=== PATIENT | female | born 1940 | race African-American/Black ===

== ENCOUNTER 2020-06-21 19:36 | Emergency (ER) | payer OTHER, MEDICAID ==
[~2020-06-21] VITALS: Ht 160 cm; Wt 81.6 kg
[2020-06-21 23:12] VITALS: BP 130/40
== END 2020-06-21 23:56 | disposition home or self-care (01) ==
LOC: ER 19:37
DX: M17.0 Bilateral primary osteoarthritis of knee (principal); E11.9 Type 2 diabetes mellitus without complications; I10 Essential (primary) hypertension; W01.0XXA Fall on same level from slipping, tripping and stumbling without subsequent striking against object, initial encounter; Y93.89 Activity, other specified; Y92.89 Other specified places as the place of occurrence of the external cause; Y99.8 Other external cause status
CPT/HCPCS: 73030; 73560

== ENCOUNTER 2021-09-04 16:06 | Emergency (ER) | payer OTHER, MEDICAID ==
[~2021-09-04] VITALS: Ht 157.5 cm; Wt 72.6 kg
[2021-09-04 16:26] VITALS: BP 153/78
[2021-09-04 17:44] LABS: Basophils # (auto) 0 10 ^3/uL (0-0.2); Basophils % (auto) 1.2 % (0.0-2.0); Eosinophils # (auto) 0 10 ^3/uL (0-0.8); Eosinophils % (auto) 0.1 % (0.0-7.0); Hematocrit 34.6 % (36.0-46.0); Hemoglobin 11.7 g/dL (12.2-16.2); Lymphocytes # (auto) 0.5 10 ^3/uL (0.4-5.4); Lymphocytes % (auto) 12.5 % (10.0-50.0); Mean Corpuscular Hemoglobin 28.4 pg (28.0-32.0); Mean Corpuscular Hgb Conc. 33.9 g/dL (32.0-36.0); Mean Corpuscular Volume 83.9 fL (80.0-100.0); Monocytes # (auto) 0.2 10 ^3/uL (0-1.3); Neutrophils # (auto) 3.1 10 ^3/uL (1.6-8.6); Neutrophils % (auto) 80.2 % (37.0-80.0); Nucleated Red Blood Cells % 0.1 %; Red Blood Cells 4.12 10^6/uL (4.0-5.20); Red Cell Distribution Width 14.4 % (11.8-14.3); White Blood Cell 3.9 10^3/uL (4.4-10.8)
[2021-09-04 18:13] LABS: Albumin 2.6 g/dL (3.4-5.0); Calcium 8.1 mg/dL (8.5-10.1); Potassium 4.1 mmol/L (3.5-5.1)
[2021-09-04 18:24] LABS: BUN/Creatinine Ratio 14.8; Bilirubin, Total 0.5 mg/dL (0.2-1.0); Total Protein 6.1 g/dL (6.4-8.2)
== END 2021-09-04 18:42 | disposition left against medical advice (07) ==
LOC: ER 16:06
DX: R53.1 Weakness (principal); Z53.21 Procedure and treatment not carried out due to patient leaving prior to being seen by health care provider
CPT/HCPCS: 36415; 80053; 84484; 85025

== ENCOUNTER 2021-09-08 14:17 | Inpatient (IN) | payer OTHER, MEDICAID ==
[~2021-09-08] VITALS: Ht 157.5 cm; Wt 88.6 kg
[2021-09-08 17:40] LABS: Basophils # (auto) 0 10 ^3/uL (0-0.2); Basophils % (auto) 0.5 % (0.0-2.0); Eosinophils # (auto) 0 10 ^3/uL (0-0.8); Eosinophils % (auto) 0.4 % (0.0-7.0); Hematocrit 34.3 % (36.0-46.0); Hemoglobin 11.2 g/dL (12.2-16.2); Lymphocytes # (auto) 0.9 10 ^3/uL (0.4-5.4); Lymphocytes % (auto) 24.9 % (10.0-50.0); Mean Corpuscular Hemoglobin 27.6 pg (28.0-32.0); Mean Corpuscular Hgb Conc. 32.7 g/dL (32.0-36.0); Mean Corpuscular Volume 84.5 fL (80.0-100.0); Monocytes # (auto) 0.5 10 ^3/uL (0-1.3); Monocytes % (auto) 14.4 % (0.0-12.0); Neutrophils # (auto) 2.1 10 ^3/uL (1.6-8.6); Neutrophils % (auto) 59.8 % (37.0-80.0); Nucleated Red Blood Cells % 0.1 %; Red Blood Cells 4.05 10^6/uL (4.0-5.20); Red Cell Distribution Width 14.8 % (11.8-14.3); White Blood Cell 3.5 10^3/uL (4.4-10.8)
[2021-09-08] MEDS ORDERED: LABETALOL HCL 5 MG/ML 4ML SYRINGE IV ONE (17:54)
[2021-09-08 17:55] LABS: INR 1.02 (0.9-1.15); Partial Thromboplastin Time 28.3 sec (23.6-33.0)
[2021-09-08] MEDS: LABETALOL HCL 5 MG/ML 4ML SYRINGE IV ONE ×2 (18:00→18:07)
[2021-09-08 18:15] LABS: Albumin 2.4 g/dL (3.4-5.0); Magnesium 3.1 mg/dL (1.6-2.6); Potassium 3.7 mmol/L (3.5-5.1)
[2021-09-08 18:23] LABS: BUN/Creatinine Ratio 15.4; Bilirubin, Total 0.5 mg/dL (0.2-1.0); Total Protein 6.1 g/dL (6.4-8.2)
[2021-09-08] MEDS ORDERED: ENOXAPARIN SOD 100 MG/1 ML SYRINGE SC ONE (21:30)
[2021-09-08] MEDS ORDERED: ASPirin 325 MG TAB PO ONE (21:30)
[2021-09-08] MEDS ORDERED: CLOPIDOGREL BISULFATE 75 MG TAB PO ONE (21:30)
[2021-09-08] MEDS ORDERED: HEPARIN DRIP/D5W 100UNITS/ML 250 ML IV SCH (21:45)
[2021-09-08] MEDS ORDERED: HEPARIN SODIUM (PORCINE) 5000 UNITS/ML 1ML VIAL IV ONE (21:45)
[2021-09-08] MEDS ORDERED: LACTATED RINGER'S 1,000 ML IV ONE (22:00)
[2021-09-08] MEDS ORDERED: DOCUSATE SOD 100 MG CAP PO PRN (22:45)
[2021-09-08] MEDS ORDERED: ONDANSETRON HCL 4 MG/2 ML VIAL IV PRN (22:45)
[2021-09-08] MEDS ORDERED: DEXTROSE (50%) 50ML SYRG IV PRN (22:45)
[2021-09-08] MEDS ORDERED: AZITHROMYCIN 500MG/ 250ML 250 ML IV ONE (22:45)
[2021-09-09] MEDS ORDERED: NITROGLYCERIN 0.4 MG SL TAB SL PRN
[2021-09-09] MEDS ORDERED: MORPHINE SULFATE INJECTION 2 MG/ML SYRG IV PRN
[2021-09-09] MEDS ORDERED: LABETALOL HCL 5 MG/ML 4ML SYRINGE IV ONE ×2 (02:15→04:00)
[2021-09-09 02:56] LABS: Urine Amorphous Crystal FEW /hpf (None Seen); Urine Bacteria MANY /hpf (None Seen); Urine Blood 1+ /uL (Negative); Urine Hyaline Cast MANY /lpf (0 - 2); Urine Specific Gravity 1.028 (1.001-1.035); Urine WBC 70 /hpf (0 - 5)
[2021-09-09] MEDS: HEPARIN SODIUM (PORCINE) 5000 UNITS/ML 1ML VIAL SC SCH ×3 (06:00→22:00)
[2021-09-09] MEDS: InsuLIN REG 1unit/0.01ml Soln (100units/ml) SC SCH ×4 (07:00→22:00)
[2021-09-09] MEDS: ACCU-CHEK COMFORT CURVE STRIP VI SCH ×4 (07:00→22:37)
[2021-09-09] MEDS: FAMOTIDINE (10MG/ML) 2ML VL IV SCH (07:44)
[2021-09-09] MEDS ORDERED: CARB25TA75 PO (08:32)
[2021-09-09] MEDS ORDERED: SENN1TAB14 PO (08:32)
[2021-09-09] MEDS ORDERED: FAMO-12 PO (08:32)
[2021-09-09] MEDS ORDERED: DOCU-94 PO (08:32)
[2021-09-09] MEDS ORDERED: ENAL2.5T7 PO (08:32)
[2021-09-09] MEDS ORDERED: CEPH500C PO (08:32)
[2021-09-09] MEDS ORDERED: ASPI1TAB20 PO (08:32)
[2021-09-09] MEDS ORDERED: SIMV-13 PO (08:32)
[2021-09-09] MEDS ORDERED: CITA-77 PO (08:32)
[2021-09-09] MEDS ORDERED: HYDR-4902 PO (08:32)
[2021-09-09] MEDS ORDERED: HYDR25TA5 PO (08:32)
[2021-09-09] MEDS ORDERED: MONT-8 PO (08:32)
[2021-09-09] MEDS ORDERED: GABA100C9 PO (08:32)
[2021-09-09 08:45] LABS: Hematocrit 27.9 % (36.0-46.0); Hemoglobin 9.4 g/dL (12.2-16.2); Mean Corpuscular Hgb Conc. 33.6 g/dL (32.0-36.0); Mean Corpuscular Volume 83.2 fL (80.0-100.0); Red Blood Cells 3.35 10^6/uL (4.0-5.20); Red Cell Distribution Width 14.6 % (11.8-14.3); White Blood Cell 4.7 10^3/uL (4.4-10.8)
[2021-09-09 08:53] LABS: Basophils % (manual) 0 (0.0-2.0); Blast Cells 0; Myelocytes % 0; Promyelocytes % 0; Reactive Lymphocytes 0
[2021-09-09 09:00] VITALS: BP 148/81
[2021-09-09 09:00] LABS: Calcium 7.6 mg/dL (8.5-10.1); Potassium 3.7 mmol/L (3.5-5.1)
[2021-09-09 09:06] LABS: BUN/Creatinine Ratio 15.8; Bilirubin, Total 0.4 mg/dL (0.2-1.0); Total Protein 5.2 g/dL (6.4-8.2)
[2021-09-09] MEDS ORDERED: QUET25TA37 PO (09:19)
[2021-09-09] MEDS: MULTIPLE VITAMIN TAB PO SCH (10:00)
[2021-09-09] MEDS: ASPirin 81 mg TAB PO SCH (10:00)
[2021-09-09] MEDS: ZINC SULFATE 220mg CAP or TAB PO SCH (10:00)
[2021-09-09] MEDS: ASCORBIC ACID 500 MG TAB PO SCH ×2 (10:06→22:37)
[2021-09-09 10:08] LABS: Protein, Urine 822.7 mg/dL (0.0-11.9)
[2021-09-09 10:56] LABS: Band Neutrophils % (manual) 6; Eosinophils % (manual) 1 (0-7); Lymphocytes % (manual) 11 (10.0-50.0); Metamyelocytes % 1; Monocytes % (manual) 14 (0-12)
[2021-09-09 12:00] VITALS: BP 164/84
[2021-09-09] MEDS: SODIUM CHLORIDE 0.9% 1,000 ML IV SCH (13:40)
[2021-09-09] MEDS: HYDROcodone-ACET 5/325MG TAB PO PRN (13:41)
[2021-09-09 16:50] VITALS: BP 159/75
[2021-09-09 22:00] VITALS: BP 189/93
[2021-09-09] MEDS: AZITHROMYCIN 500MG/ 250ML 250 ML IV SCH (22:36)
[2021-09-09] MEDS: cefTRIAXone 1GM/50ML D5W 50 ML IV SCH (22:40)
[2021-09-10 05:30] VITALS: BP 185/99
[2021-09-10] MEDS ORDERED: HEPARIN SODIUM (PORCINE) 5000 UNITS/ML 1ML VIAL ONE (05:33)
[2021-09-10] MEDS ORDERED: hydrALAZINE HCL 20 MG/ML VL ONE (05:39)
[2021-09-10] MEDS: hydrALAZINE HCL 20 MG/ML VL IV PRN (05:42)
[2021-09-10] MEDS: HEPARIN SODIUM (PORCINE) 5000 UNITS/ML 1ML VIAL SC SCH ×3 (05:50→21:46)
[2021-09-10] MEDS: ACCU-CHEK COMFORT CURVE STRIP VI SCH ×4 (05:54→21:49)
[2021-09-10] MEDS: InsuLIN REG 1unit/0.01ml Soln (100units/ml) SC SCH ×4 (05:54→21:57)
[2021-09-10 06:39] VITALS: BP 147/79
[2021-09-10 06:42] LABS: Basophils # (auto) 0 10 ^3/uL (0-0.2); Basophils % (auto) 0.6 % (0.0-2.0); Eosinophils # (auto) 0 10 ^3/uL (0-0.8); Eosinophils % (auto) 0.5 % (0.0-7.0); Hematocrit 28.8 % (36.0-46.0); Hemoglobin 9.7 g/dL (12.2-16.2); Lymphocytes % (auto) 17.1 % (10.0-50.0); Mean Corpuscular Hemoglobin 28.4 pg (28.0-32.0); Mean Corpuscular Hgb Conc. 33.9 g/dL (32.0-36.0); Mean Corpuscular Volume 83.9 fL (80.0-100.0); Monocytes % (auto) 16.7 % (0.0-12.0); Neutrophils # (auto) 3.7 10 ^3/uL (1.6-8.6); Neutrophils % (auto) 65.1 % (37.0-80.0); Red Blood Cells 3.43 10^6/uL (4.0-5.20); Red Cell Distribution Width 14.6 % (11.8-14.3); White Blood Cell 5.8 10^3/uL (4.4-10.8)
[2021-09-10 09:00] VITALS: BP 136/81
[2021-09-10] MEDS: SODIUM CHLORIDE 0.9% 1,000 ML IV SCH (09:15)
[2021-09-10] MEDS: cefTRIAXone 1GM/50ML D5W 50 ML IV SCH (09:15)
[2021-09-10 09:38] LABS: BUN/Creatinine Ratio 15.3; Calcium 7.8 mg/dL (8.5-10.1)
[2021-09-10] MEDS: ASPirin 81 mg TAB PO SCH (10:20)
[2021-09-10] MEDS: ZINC SULFATE 220mg CAP or TAB PO SCH (10:20)
[2021-09-10] MEDS: FAMOTIDINE (10MG/ML) 2ML VL IV SCH (10:20)
[2021-09-10] MEDS: ASCORBIC ACID 500 MG TAB PO SCH ×2 (10:25→21:48)
[2021-09-10] MEDS: MULTIPLE VITAMIN TAB PO SCH (10:27)
[2021-09-10 11:28] LABS: Folate (Folic Acid) 5.92 ng/mL (5.38-24)
[2021-09-10 14:33] VITALS: BP 158/79
[2021-09-10 17:30] VITALS: BP 182/81
[2021-09-10] MEDS: HYDROcodone-ACET 5/325MG TAB PO PRN (18:17)
[2021-09-10 21:00] VITALS: BP 183/75
[2021-09-10] MEDS: AZITHROMYCIN 500MG/ 250ML 250 ML IV SCH (21:47)
[2021-09-10] MEDS: hydrALAZINE HCL 25 MG TAB PO SCH (21:48)
[2021-09-11] MEDS: SODIUM CHLORIDE 0.9% 1,000 ML IV SCH (05:15)
[2021-09-11] MEDS: HYDROcodone-ACET 5/325MG TAB PO PRN (05:16)
[2021-09-11] MEDS: hydrALAZINE HCL 25 MG TAB PO SCH ×3 (05:37→22:13)
[2021-09-11] MEDS: HEPARIN SODIUM (PORCINE) 5000 UNITS/ML 1ML VIAL SC SCH ×3 (05:38→22:14)
[2021-09-11] MEDS: InsuLIN REG 1unit/0.01ml Soln (100units/ml) SC SCH ×4 (05:58→22:00)
[2021-09-11] MEDS: ACCU-CHEK COMFORT CURVE STRIP VI SCH ×4 (05:58→22:14)
[2021-09-11 06:25] LABS: Calcium 8.1 mg/dL (8.5-10.1); Potassium 4.2 mmol/L (3.5-5.1)
[2021-09-11 06:27] LABS: BUN/Creatinine Ratio 15.6
[2021-09-11] MEDS: cefTRIAXone 1GM/50ML D5W 50 ML IV SCH (08:49)
[2021-09-11] MEDS: ASPirin 81 mg TAB PO SCH (09:17)
[2021-09-11] MEDS: ASCORBIC ACID 500 MG TAB PO SCH ×2 (09:18→22:13)
[2021-09-11] MEDS: FAMOTIDINE (10MG/ML) 2ML VL IV SCH (09:18)
[2021-09-11] MEDS: MULTIPLE VITAMIN TAB PO SCH (09:18)
[2021-09-11] MEDS: ZINC SULFATE 220mg CAP or TAB PO SCH (09:18)
[2021-09-11 09:38] VITALS: BP 162/77
[2021-09-11 14:48] VITALS: BP 158/88
[2021-09-11 16:34] VITALS: BP 152/78
[2021-09-11] MEDS: ACETAMINOPHEN 325 MG TAB PO PRN (18:27)
[2021-09-11 22:00] VITALS: BP 157/74
[2021-09-11] MEDS: AZITHROMYCIN 500MG/ 250ML 250 ML IV SCH (22:12)
[2021-09-12] MEDS: SODIUM CHLORIDE 0.9% 1,000 ML IV SCH ×2 (01:38→21:47)
[2021-09-12] MEDS: hydrALAZINE HCL 25 MG TAB PO SCH ×4 (01:38→21:48)
[2021-09-12 05:31] VITALS: BP 173/106
[2021-09-12] MEDS: hydrALAZINE HCL 20 MG/ML VL IV PRN ×2 (05:39→13:53)
[2021-09-12] MEDS: InsuLIN REG 1unit/0.01ml Soln (100units/ml) SC SCH ×4 (06:16→21:18)
[2021-09-12] MEDS: HEPARIN SODIUM (PORCINE) 5000 UNITS/ML 1ML VIAL SC SCH ×3 (06:22→21:49)
[2021-09-12] MEDS: ACCU-CHEK COMFORT CURVE STRIP VI SCH ×4 (06:39→21:17)
[2021-09-12] MEDS: ASCORBIC ACID 500 MG TAB PO SCH ×2 (10:07→21:48)
[2021-09-12] MEDS: ZINC SULFATE 220mg CAP or TAB PO SCH (10:07)
[2021-09-12] MEDS: FAMOTIDINE (10MG/ML) 2ML VL IV SCH (10:08)
[2021-09-12] MEDS: ASPirin 81 mg TAB PO SCH (10:08)
[2021-09-12] MEDS: MULTIPLE VITAMIN TAB PO SCH (10:08)
[2021-09-12] MEDS: HYDROcodone-ACET 5/325MG TAB PO PRN (10:08)
[2021-09-12] MEDS: cefTRIAXone 1GM/50ML D5W 50 ML IV SCH (10:08)
[2021-09-12] MEDS ORDERED: ALBUMIN 25% 50 ML IV ONE (10:30)
[2021-09-12 10:31] VITALS: BP 169/75
[2021-09-12 12:13] LABS: Potassium 4.2 mmol/L (3.5-5.1)
[2021-09-12 12:16] LABS: BUN/Creatinine Ratio 18.3; Calcium 8.5 mg/dL (8.5-10.1)
[2021-09-12 13:00] VITALS: BP 216/89
[2021-09-12] MEDS: amLODIPine BESYLATE 5 MG TAB PO SCH (14:28)
[2021-09-12] MEDS: AZITHROMYCIN 500MG/ 250ML 250 ML IV SCH (21:48)
[2021-09-12 22:00] VITALS: BP 149/114
[2021-09-13 05:00] VITALS: BP 157/84
[2021-09-13] MEDS: HEPARIN SODIUM (PORCINE) 5000 UNITS/ML 1ML VIAL SC SCH ×3 (05:18→22:40)
[2021-09-13] MEDS: hydrALAZINE HCL 25 MG TAB PO SCH ×3 (05:28→22:41)
[2021-09-13] MEDS: InsuLIN REG 1unit/0.01ml Soln (100units/ml) SC SCH ×4 (06:10→21:58)
[2021-09-13] MEDS: ACCU-CHEK COMFORT CURVE STRIP VI SCH ×4 (06:10→21:33)
[2021-09-13] MEDS: cefTRIAXone 1GM/50ML D5W 50 ML IV SCH (08:34)
[2021-09-13 09:00] VITALS: BP 150/82
[2021-09-13] MEDS: MULTIPLE VITAMIN TAB PO SCH (09:18)
[2021-09-13] MEDS: ASPirin 81 mg TAB PO SCH (09:19)
[2021-09-13] MEDS: ZINC SULFATE 220mg CAP or TAB PO SCH (09:19)
[2021-09-13] MEDS: ACETAMINOPHEN 325 MG TAB PO PRN (09:20)
[2021-09-13] MEDS: ASCORBIC ACID 500 MG TAB PO SCH ×2 (09:20→22:00)
[2021-09-13] MEDS: amLODIPine BESYLATE 5 MG TAB PO SCH (09:20)
[2021-09-13] MEDS: FAMOTIDINE (10MG/ML) 2ML VL IV SCH (09:20)
[2021-09-13 09:45] LABS: BUN/Creatinine Ratio 21.2; Calcium 8.4 mg/dL (8.5-10.1)
[2021-09-13 13:00] VITALS: BP 154/84
[2021-09-13] MEDS: SODIUM CHLORIDE 0.9% 1,000 ML IV SCH (16:51)
[2021-09-13 17:00] VITALS: BP 144/70
[2021-09-13 20:00] VITALS: BP 155/74
[2021-09-13] MEDS: AZITHROMYCIN 500MG/ 250ML 250 ML IV SCH (22:39)
[2021-09-13] MEDS: hydrALAZINE HCL 20 MG/ML VL IV PRN (22:41)
[2021-09-14 05:00] VITALS: BP 152/72
[2021-09-14 05:51] LABS: Hemoglobin 9.1 g/dL (12.2-16.2)
[2021-09-14 05:55] LABS: Hematocrit 26.1 % (36.0-46.0); Mean Corpuscular Volume 85.7 fL (80.0-100.0); Red Blood Cells 3.05 10^6/uL (4.0-5.20); Red Cell Distribution Width 14.4 % (11.8-14.3)
[2021-09-14] MEDS: hydrALAZINE HCL 25 MG TAB PO SCH ×3 (06:00→21:58)
[2021-09-14 06:11] LABS: BUN/Creatinine Ratio 29.1; Calcium 8.2 mg/dL (8.5-10.1); Magnesium 2.2 mg/dL (1.6-2.6)
[2021-09-14 06:33] LABS: Basophils % (manual) 0 (0.0-2.0); Blast Cells 0; Eosinophils % (manual) 0 (0-7); Metamyelocytes % 0; Myelocytes % 0; Promyelocytes % 0; Reactive Lymphocytes 0
[2021-09-14] MEDS: hydrALAZINE HCL 20 MG/ML VL IV PRN (06:39)
[2021-09-14] MEDS: HEPARIN SODIUM (PORCINE) 5000 UNITS/ML 1ML VIAL SC SCH ×3 (06:48→21:37)
[2021-09-14] MEDS: ACCU-CHEK COMFORT CURVE STRIP VI SCH ×4 (06:49→21:28)
[2021-09-14] MEDS: InsuLIN REG 1unit/0.01ml Soln (100units/ml) SC SCH ×4 (06:50→21:38)
[2021-09-14 07:40] LABS: Band Neutrophils % (manual) 1; Lymphocytes % (manual) 21 (10.0-50.0); Monocytes % (manual) 16 (0-12)
[2021-09-14 08:54] VITALS: BP 142/72
[2021-09-14] MEDS: cefTRIAXone 1GM/50ML D5W 50 ML IV SCH (10:01)
[2021-09-14] MEDS: MULTIPLE VITAMIN TAB PO SCH (10:11)
[2021-09-14] MEDS: ASPirin 81 mg TAB PO SCH (10:11)
[2021-09-14] MEDS: FAMOTIDINE (10MG/ML) 2ML VL IV SCH (10:11)
[2021-09-14] MEDS: amLODIPine BESYLATE 5 MG TAB PO SCH (10:12)
[2021-09-14] MEDS: ACETAMINOPHEN 325 MG TAB PO PRN (10:12)
[2021-09-14] MEDS: ASCORBIC ACID 500 MG TAB PO SCH ×2 (10:12→21:38)
[2021-09-14] MEDS: ZINC SULFATE 220mg CAP or TAB PO SCH (10:12)
[2021-09-14] MEDS: SODIUM CHLORIDE 0.9% 1,000 ML IV SCH ×2 (13:15→15:12)
[2021-09-14 17:24] VITALS: BP 123/78
[2021-09-14] MEDS: AZITHROMYCIN 500MG/ 250ML 250 ML IV SCH (21:38)
[2021-09-14 22:00] VITALS: BP 136/64
[2021-09-15] MEDS: hydrALAZINE HCL 25 MG TAB PO SCH ×3 (05:45→22:00)
[2021-09-15] MEDS: HEPARIN SODIUM (PORCINE) 5000 UNITS/ML 1ML VIAL SC SCH ×3 (05:48→21:12)
[2021-09-15] MEDS: InsuLIN REG 1unit/0.01ml Soln (100units/ml) SC SCH ×4 (06:08→21:14)
[2021-09-15] MEDS: ACCU-CHEK COMFORT CURVE STRIP VI SCH ×4 (06:08→21:14)
[2021-09-15 09:00] VITALS: BP 178/88
[2021-09-15] MEDS: cefTRIAXone 1GM/50ML D5W 50 ML IV SCH (09:00)
[2021-09-15] MEDS: ASCORBIC ACID 500 MG TAB PO SCH ×2 (09:23→22:00)
[2021-09-15] MEDS: FAMOTIDINE (10MG/ML) 2ML VL IV SCH (09:23)
[2021-09-15] MEDS: MULTIPLE VITAMIN TAB PO SCH (09:23)
[2021-09-15] MEDS: amLODIPine BESYLATE 5 MG TAB PO SCH (09:23)
[2021-09-15] MEDS: ASPirin 81 mg TAB PO SCH (09:23)
[2021-09-15] MEDS: ZINC SULFATE 220mg CAP or TAB PO SCH (09:23)
[2021-09-15] MEDS: hydrALAZINE HCL 20 MG/ML VL IV PRN ×2 (09:24→22:37)
[2021-09-15] MEDS: CEFEPIME 1 GM in SODIUM CHL 0.9% 50 ML IV SCH ×2 (10:00→18:00)
[2021-09-15 13:00] VITALS: BP 145/65
[2021-09-15] MEDS: HYDROcodone-ACET 5/325MG TAB PO PRN (14:10)
[2021-09-15 17:00] VITALS: BP 140/48
[2021-09-15] MEDS: ACETAMINOPHEN 325 MG TAB PO PRN (18:45)
[2021-09-15 22:00] VITALS: BP 164/74
[2021-09-16] MEDS: CEFEPIME 1 GM in SODIUM CHL 0.9% 50 ML IV SCH ×3 (02:03→18:00)
[2021-09-16 05:00] VITALS: BP 172/77
[2021-09-16] MEDS: SODIUM CHLORIDE 0.9% 1,000 ML IV SCH (05:15)
[2021-09-16] MEDS: hydrALAZINE HCL 20 MG/ML VL IV PRN (05:50)
[2021-09-16] MEDS: ACCU-CHEK COMFORT CURVE STRIP VI SCH ×4 (05:51→22:57)
[2021-09-16] MEDS: InsuLIN REG 1unit/0.01ml Soln (100units/ml) SC SCH ×4 (05:52→22:00)
[2021-09-16] MEDS: HEPARIN SODIUM (PORCINE) 5000 UNITS/ML 1ML VIAL SC SCH ×3 (05:53→22:41)
[2021-09-16] MEDS: hydrALAZINE HCL 25 MG TAB PO SCH ×3 (05:54→22:34)
[2021-09-16 06:39] VITALS: BP 147/57
[2021-09-16 09:00] VITALS: BP 166/67
[2021-09-16] MEDS: amLODIPine BESYLATE 5 MG TAB PO SCH (10:00)
[2021-09-16] MEDS: ZINC SULFATE 220mg CAP or TAB PO SCH (10:00)
[2021-09-16] MEDS: FAMOTIDINE (10MG/ML) 2ML VL IV SCH (10:00)
[2021-09-16] MEDS: ASCORBIC ACID 500 MG TAB PO SCH ×2 (10:00→22:35)
[2021-09-16] MEDS: ASPirin 81 mg TAB PO SCH (10:00)
[2021-09-16] MEDS: MULTIPLE VITAMIN TAB PO SCH (10:00)
[2021-09-16 13:00] VITALS: BP 163/85
[2021-09-16 17:00] VITALS: BP 107/69
[2021-09-16 22:00] VITALS: BP 150/61
[2021-09-17] MEDS: SODIUM CHLORIDE 0.9% 1,000 ML IV SCH ×2 (02:11→23:47)
[2021-09-17] MEDS: CEFEPIME 1 GM in SODIUM CHL 0.9% 50 ML IV SCH ×3 (02:12→18:00)
[2021-09-17 05:00] VITALS: BP 145/61
[2021-09-17] MEDS: hydrALAZINE HCL 25 MG TAB PO SCH ×3 (06:36→22:12)
[2021-09-17] MEDS: HEPARIN SODIUM (PORCINE) 5000 UNITS/ML 1ML VIAL SC SCH ×3 (06:37→22:01)
[2021-09-17] MEDS: InsuLIN REG 1unit/0.01ml Soln (100units/ml) SC SCH ×4 (06:38→22:00)
[2021-09-17] MEDS: ACCU-CHEK COMFORT CURVE STRIP VI SCH ×4 (06:38→22:12)
[2021-09-17 08:05] LABS: BUN/Creatinine Ratio 34.3; Calcium 8.6 mg/dL (8.5-10.1); Eosinophils # (auto) 0 10 ^3/uL (0-0.8); Eosinophils % (auto) 0.1 % (0.0-7.0); Hemoglobin 8.9 g/dL (12.2-16.2); Monocytes # (auto) 1.2 10 ^3/uL (0-1.3); Nucleated Red Blood Cells % 0.1 %; Potassium 4.2 mmol/L (3.5-5.1)
[2021-09-17 08:07] LABS: Basophils # (auto) 0 10 ^3/uL (0-0.2); Basophils % (auto) 0.6 % (0.0-2.0); Hematocrit 26.6 % (36.0-46.0); Lymphocytes # (auto) 1.4 10 ^3/uL (0.4-5.4); Lymphocytes % (auto) 15.8 % (10.0-50.0); Mean Corpuscular Hemoglobin 28.6 pg (28.0-32.0); Mean Corpuscular Hgb Conc. 33.4 g/dL (32.0-36.0); Mean Corpuscular Volume 85.5 fL (80.0-100.0); Monocytes % (auto) 14.1 % (0.0-12.0); Neutrophils % (auto) 69.4 % (37.0-80.0); Red Blood Cells 3.11 10^6/uL (4.0-5.20); Red Cell Distribution Width 14.9 % (11.8-14.3); White Blood Cell 8.6 10^3/uL (4.4-10.8)
[2021-09-17 09:00] VITALS: BP 155/75
[2021-09-17] MEDS: ASPirin 81 mg TAB PO SCH (10:44)
[2021-09-17] MEDS: MULTIPLE VITAMIN TAB PO SCH (10:44)
[2021-09-17] MEDS: ZINC SULFATE 220mg CAP or TAB PO SCH (10:44)
[2021-09-17] MEDS: amLODIPine BESYLATE 5 MG TAB PO SCH (10:45)
[2021-09-17] MEDS: FAMOTIDINE (10MG/ML) 2ML VL IV SCH (10:46)
[2021-09-17] MEDS: HYDROcodone-ACET 5/325MG TAB PO PRN ×2 (10:55→22:13)
[2021-09-17] MEDS: ASCORBIC ACID 500 MG TAB PO SCH ×2 (10:56→22:11)
[2021-09-17 13:00] VITALS: BP 127/78
[2021-09-17] MEDS ORDERED: HEPARIN SODIUM (PORCINE) 5000 UNITS/ML 1ML VIAL ONE ×2 (15:27)
[2021-09-17 16:00] VITALS: BP 137/62
[2021-09-17 22:10] VITALS: BP 132/74
[2021-09-18] MEDS: CEFEPIME 1 GM in SODIUM CHL 0.9% 50 ML IV SCH ×3 (01:37→18:05)
[2021-09-18] MEDS: hydrALAZINE HCL 20 MG/ML VL IV PRN (04:02)
[2021-09-18 04:30] VITALS: BP 165/80
[2021-09-18] MEDS: HEPARIN SODIUM (PORCINE) 5000 UNITS/ML 1ML VIAL SC SCH ×3 (05:30→21:01)
[2021-09-18] MEDS: hydrALAZINE HCL 25 MG TAB PO SCH ×3 (05:40→21:06)
[2021-09-18 06:11] VITALS: BP 153/87
[2021-09-18] MEDS: InsuLIN REG 1unit/0.01ml Soln (100units/ml) SC SCH ×4 (06:16→21:07)
[2021-09-18] MEDS: ACCU-CHEK COMFORT CURVE STRIP VI SCH ×4 (06:16→21:07)
[2021-09-18 09:00] VITALS: BP 147/67
[2021-09-18] MEDS: ASPirin 81 mg TAB PO SCH (11:09)
[2021-09-18] MEDS: MULTIPLE VITAMIN TAB PO SCH (11:09)
[2021-09-18] MEDS: ZINC SULFATE 220mg CAP or TAB PO SCH (11:09)
[2021-09-18] MEDS: ASCORBIC ACID 500 MG TAB PO SCH ×2 (11:09→21:07)
[2021-09-18] MEDS: FAMOTIDINE (10MG/ML) 2ML VL IV SCH (11:09)
[2021-09-18] MEDS: amLODIPine BESYLATE 5 MG TAB PO SCH (11:10)
[2021-09-18 13:00] VITALS: BP 141/97
[2021-09-18 17:00] VITALS: BP 133/77
[2021-09-18] MEDS: SODIUM CHLORIDE 0.9% 1,000 ML IV SCH (17:30)
[2021-09-18] MEDS: HYDROcodone-ACET 5/325MG TAB PO PRN (21:08)
[2021-09-18 22:00] VITALS: BP 128/58
[2021-09-19] MEDS: CEFEPIME 1 GM in SODIUM CHL 0.9% 50 ML IV SCH ×3 (01:35→18:06)
[2021-09-19 05:00] VITALS: BP 133/84
[2021-09-19] MEDS: HEPARIN SODIUM (PORCINE) 5000 UNITS/ML 1ML VIAL SC SCH ×2 (05:27→14:00)
[2021-09-19] MEDS: hydrALAZINE HCL 25 MG TAB PO SCH ×2 (05:30→14:00)
[2021-09-19] MEDS: InsuLIN REG 1unit/0.01ml Soln (100units/ml) SC SCH ×3 (05:31→17:00)
[2021-09-19] MEDS: ACCU-CHEK COMFORT CURVE STRIP VI SCH ×3 (05:31→17:21)
[2021-09-19 08:46] VITALS: BP 150/88
[2021-09-19] MEDS: ASPirin 81 mg TAB PO SCH (10:08)
[2021-09-19] MEDS: ASCORBIC ACID 500 MG TAB PO SCH (10:08)
[2021-09-19] MEDS: MULTIPLE VITAMIN TAB PO SCH (10:08)
[2021-09-19] MEDS: FAMOTIDINE (10MG/ML) 2ML VL IV SCH (10:09)
[2021-09-19] MEDS: ZINC SULFATE 220mg CAP or TAB PO SCH (10:09)
[2021-09-19] MEDS: amLODIPine BESYLATE 5 MG TAB PO SCH (10:09)
[2021-09-19] MEDS: HYDROcodone-ACET 5/325MG TAB PO PRN (10:10)
[2021-09-19] MEDS: SODIUM CHLORIDE 0.9% 1,000 ML IV SCH (13:15)
[2021-09-19 16:53] VITALS: BP 123/75
== END 2021-09-19 21:34 | DRG 193 ==
LOC: EDUNIT# 14:17 → ER 14:17 → EDBD 14:17 → TELE 23:50 → TELE-CENTR 09-09 06:04
PROVIDERS: ADMIT Nurse Practitioner Family; ATTEND Internal Medicine
DX: J18.9 Pneumonia, unspecified organism (principal); N17.0 Acute kidney failure with tubular necrosis; J96.00 Acute respiratory failure, unspecified whether with hypoxia or hypercapnia; G93.41 Metabolic encephalopathy; N39.0 Urinary tract infection, site not specified; N18.4 Chronic kidney disease, stage 4 (severe); E88.09 Other disorders of plasma-protein metabolism, not elsewhere classified; D63.1 Anemia in chronic kidney disease; F29 Unspecified psychosis not due to a substance or known physiological condition; Z20.822 Contact with and (suspected) exposure to COVID-19; G20 Parkinson's disease; F02.80 Dementia in other diseases classified elsewhere, unspecified severity, without behavioral disturbance, psychotic disturbance, mood disturbance, and anxiety; G30.9 Alzheimer's disease, unspecified; B96.5 Pseudomonas (aeruginosa) (mallei) (pseudomallei) as the cause of diseases classified elsewhere; E11.22 Type 2 diabetes mellitus with diabetic chronic kidney disease; F17.200 Nicotine dependence, unspecified, uncomplicated; G89.29 Other chronic pain; I12.9 Hypertensive chronic kidney disease with stage 1 through stage 4 chronic kidney disease, or unspecified chronic kidney disease; K21.9 Gastro-esophageal reflux disease without esophagitis; M19.90 Unspecified osteoarthritis, unspecified site; R26.9 Unspecified abnormalities of gait and mobility; M54.50 Low back pain, unspecified; Z79.4 Long term (current) use of insulin; Z79.82 Long term (current) use of aspirin; Z79.899 Other long term (current) drug therapy
CPT/HCPCS: 36415; 70450; 71045; 76775; 80048; 80053; 81001; 82570; 82607; 82746; 82962; 83036; 83605; 83735; 83880; 84156; 84300; 84443; 84484; 85007; 85025; 85027; 85610; 85730; 86850; 86900; 86901; 87086; 87088; 87186; 87426; 93005; 93970; 95819; 96365; 96375; 97110; 97116; 97163; 97530; 99291; G0378; J0696; J3490

== ENCOUNTER 2021-09-20 10:36 | Inpatient (IN) | payer OTHER, MEDICAID ==
[~2021-09-20] VITALS: Ht 170.2 cm; Wt 84.4 kg
[~2021-09-20 10:36] MED LIST: ASPI1TAB20 PO; CARB25TA75 PO; CEPH500C PO; CITA-77 PO; DOCU-94 PO; ENAL2.5T7 PO; FAMO-12 PO; GABA100C9 PO; HYDR-4902 PO; HYDR25TA5 PO; MONT-8 PO; QUET25TA37 PO; SENN1TAB14 PO; SIMV-13 PO
[2021-09-20 16:35] LABS: Basophils # (auto) 0.1 10 ^3/uL (0-0.2); Basophils % (auto) 1.2 % (0.0-2.0); Eosinophils # (auto) 0 10 ^3/uL (0-0.8); Eosinophils % (auto) 0.2 % (0.0-7.0); Hematocrit 26.6 % (36.0-46.0); Hemoglobin 8.9 g/dL (12.2-16.2); Lymphocytes # (auto) 0.9 10 ^3/uL (0.4-5.4); Lymphocytes % (auto) 9.6 % (10.0-50.0); Mean Corpuscular Hemoglobin 28.4 pg (28.0-32.0); Mean Corpuscular Hgb Conc. 33.4 g/dL (32.0-36.0); Monocytes # (auto) 1.2 10 ^3/uL (0-1.3); Neutrophils # (auto) 6.9 10 ^3/uL (1.6-8.6); Red Blood Cells 3.12 10^6/uL (4.0-5.20); Red Cell Distribution Width 14.4 % (11.8-14.3); White Blood Cell 9.1 10^3/uL (4.4-10.8)
[2021-09-20 16:55] LABS: Potassium 4.5 mmol/L (3.5-5.1)
[2021-09-20 17:06] LABS: Albumin 2.2 g/dL (3.4-5.0); BUN/Creatinine Ratio 33.7; Bilirubin, Total 0.4 mg/dL (0.2-1.0); Calcium 8.6 mg/dL (8.5-10.1); Total Protein 6.3 g/dL (6.4-8.2)
[2021-09-20] MEDS ORDERED: D5W/SOD CHL 0.45% 1,000 ML IV ONE (21:15)
[2021-09-20] MEDS ORDERED: DOCUSATE SOD 100 MG CAP PO PRN (21:15)
[2021-09-20] MEDS ORDERED: HYDROcodone-ACET 5/325MG TAB PO PRN (21:15)
[2021-09-20] MEDS ORDERED: ONDANSETRON HCL 4 MG/2 ML VIAL IV PRN (21:15)
[2021-09-20] MEDS ORDERED: NITROGLYCERIN 0.4 MG SL TAB SL PRN (22:15)
[2021-09-20] MEDS ORDERED: FUROSEMIDE 20 MG/2 ML VIAL IV ONE (22:15)
[2021-09-20] MEDS ORDERED: MORPHINE SULFATE INJECTION 2 MG/ML SYRG IV PRN (22:15)
[2021-09-20] MEDS ORDERED: DEXTROSE (50%) 50ML SYRG IV PRN (22:45)
[2021-09-20] MEDS: CARBIDOPA W LEVODOPA 25/100mg TABLET PO SCH (23:57)
[2021-09-20] MEDS: ASCORBIC ACID 500 MG TAB PO SCH (23:57)
[2021-09-21] VITALS (8 sets, daily range): BP systolic 134–182; BP diastolic 63–94
[2021-09-21] MEDS: hydrALAZINE HCL 20 MG/ML VL IV PRN ×2 (01:54→21:25)
[2021-09-21] MEDS: InsuLIN REG 1unit/0.01ml Soln (100units/ml) SC SCH ×4 (06:19→21:24)
[2021-09-21] MEDS: CARBIDOPA W LEVODOPA 25/100mg TABLET PO SCH (06:19)
[2021-09-21] MEDS: ACCU-CHEK COMFORT CURVE STRIP VI SCH ×4 (06:20→21:25)
[2021-09-21] MEDS: FAMOTIDINE (10MG/ML) 2ML VL IV SCH (09:47)
[2021-09-21] MEDS: ZINC SULFATE 220mg CAP or TAB PO SCH (09:47)
[2021-09-21] MEDS: ASCORBIC ACID 500 MG TAB PO SCH (09:47)
[2021-09-21] MEDS: MULTIPLE VITAMIN TAB PO SCH (09:47)
[2021-09-21] MEDS: ASPirin 81 mg TAB PO SCH (09:47)
[2021-09-21] MEDS: HEPARIN SODIUM (PORCINE) 5000 UNITS/ML 1ML VIAL SC SCH ×2 (09:48→21:16)
[2021-09-21] MEDS ORDERED: FUROSEMIDE 20 MG/2 ML VIAL IV SCH (10:00)
[2021-09-21] MEDS ORDERED: cefTRIAXone 1GM/50ML D5W 50 ML IV ONE (10:45)
[2021-09-21 11:27] LABS: Basophils # (auto) 0.1 10 ^3/uL (0-0.2); Basophils % (auto) 1.3 % (0.0-2.0); Eosinophils # (auto) 0 10 ^3/uL (0-0.8); Eosinophils % (auto) 0.3 % (0.0-7.0); Hemoglobin 8.5 g/dL (12.2-16.2); Lymphocytes # (auto) 0.9 10 ^3/uL (0.4-5.4); Lymphocytes % (auto) 9.7 % (10.0-50.0); Mean Corpuscular Hemoglobin 28.5 pg (28.0-32.0); Mean Corpuscular Hgb Conc. 33.8 g/dL (32.0-36.0); Mean Corpuscular Volume 84.3 fL (80.0-100.0); Monocytes # (auto) 1.3 10 ^3/uL (0-1.3); Monocytes % (auto) 14.9 % (0.0-12.0); Neutrophils # (auto) 6.6 10 ^3/uL (1.6-8.6); Neutrophils % (auto) 73.8 % (37.0-80.0); Red Blood Cells 2.96 10^6/uL (4.0-5.20); Red Cell Distribution Width 14.7 % (11.8-14.3); White Blood Cell 8.9 10^3/uL (4.4-10.8)
[2021-09-21 11:46] LABS: Potassium 4.1 mmol/L (3.5-5.1)
[2021-09-21 11:54] LABS: Albumin 2.1 g/dL (3.4-5.0); BUN/Creatinine Ratio 28.3; Bilirubin, Total 0.3 mg/dL (0.2-1.0); Calcium 8.7 mg/dL (8.5-10.1); Total Protein 6.3 g/dL (6.4-8.2)
[2021-09-21 14:01] LABS: Urine Bacteria FEW /hpf (None Seen); Urine Blood 2+ /uL (Negative); Urine Hyaline Cast FEW /lpf (0 - 2); Urine Mucus FEW (None Seen); Urine Specific Gravity 1.011 (1.001-1.035); Urine WBC 195 /hpf (0 - 5); Urine WBC Clumps PRESENT /hpf (None Seen)
[2021-09-22] VITALS (7 sets, daily range): BP systolic 134–166; BP diastolic 50–79
[2021-09-22 05:22] LABS: Basophils # (auto) 0.1 10 ^3/uL (0-0.2); Basophils % (auto) 1.1 % (0.0-2.0); Eosinophils # (auto) 0.1 10 ^3/uL (0-0.8); Eosinophils % (auto) 1.2 % (0.0-7.0); Hematocrit 24.1 % (36.0-46.0); Hemoglobin 8.3 g/dL (12.2-16.2); Lymphocytes # (auto) 1.3 10 ^3/uL (0.4-5.4); Lymphocytes % (auto) 17.8 % (10.0-50.0); Mean Corpuscular Hemoglobin 29.5 pg (28.0-32.0); Mean Corpuscular Hgb Conc. 34.4 g/dL (32.0-36.0); Mean Corpuscular Volume 85.9 fL (80.0-100.0); Monocytes # (auto) 1.1 10 ^3/uL (0-1.3); Monocytes % (auto) 15.2 % (0.0-12.0); Neutrophils # (auto) 4.7 10 ^3/uL (1.6-8.6); Neutrophils % (auto) 64.7 % (37.0-80.0); Red Blood Cells 2.81 10^6/uL (4.0-5.20); Red Cell Distribution Width 14.4 % (11.8-14.3); White Blood Cell 7.2 10^3/uL (4.4-10.8)
[2021-09-22 05:43] LABS: Calcium 8.4 mg/dL (8.5-10.1); Potassium 4.1 mmol/L (3.5-5.1)
[2021-09-22 05:44] LABS: % Iron Saturation 43.5 % (15-50)
[2021-09-22] MEDS: ACCU-CHEK COMFORT CURVE STRIP VI SCH (05:44)
[2021-09-22] MEDS: InsuLIN REG 1unit/0.01ml Soln (100units/ml) SC SCH (05:44)
[2021-09-22] MEDS ORDERED: cefTRIAXone 1GM/50ML D5W 50 ML IV SCH (09:00)
[2021-09-22] MEDS: FAMOTIDINE (10MG/ML) 2ML VL IV SCH (09:45)
[2021-09-22] MEDS: ZINC SULFATE 220mg CAP or TAB PO SCH (09:45)
[2021-09-22] MEDS: ASPirin 81 mg TAB PO SCH (09:45)
[2021-09-22] MEDS: MULTIPLE VITAMIN TAB PO SCH (09:45)
[2021-09-22] MEDS: HEPARIN SODIUM (PORCINE) 5000 UNITS/ML 1ML VIAL SC SCH ×2 (09:53→21:49)
[2021-09-22] MEDS ORDERED: ACETAMINOPHEN 500 MG TAB PO ONE (10:45)
[2021-09-22] MEDS ORDERED: PIPERACILLIN-TAZOB 3.375GM 100 ML IV SCH (12:00)
[2021-09-22 13:19] LABS: Urine Bacteria FEW /hpf (None Seen); Urine Blood 2+ /uL (Negative); Urine Budding Yeast FEW /hpf (None Seen); Urine Hyaline Cast MANY /lpf (0 - 2); Urine Mucus FEW (None Seen); Urine Specific Gravity 1.015 (1.001-1.035); Urine WBC 24 /hpf (0 - 5)
[2021-09-22] MEDS: hydrALAZINE HCL 20 MG/ML VL IV PRN (14:17)
[2021-09-22] MEDS: PIPERACILLIN-TAZOB 3.375GM 100 ML IV SCH (21:44)
[2021-09-23] VITALS (7 sets, daily range): BP systolic 134–168; BP diastolic 54–79
[2021-09-23] MEDS: PIPERACILLIN-TAZOB 3.375GM 100 ML IV SCH ×4 (02:23→20:59)
[2021-09-23] MEDS: ACETAMINOPHEN 500 MG TAB PO PRN ×2 (04:32→12:38)
[2021-09-23] MEDS: hydrALAZINE HCL 20 MG/ML VL IV PRN (04:37)
[2021-09-23 05:41] LABS: Eosinophils # (auto) 0.1 10 ^3/uL (0-0.8); Hemoglobin 8.2 g/dL (12.2-16.2); Lymphocytes # (auto) 1.2 10 ^3/uL (0.4-5.4); Monocytes % (auto) 16.4 % (0.0-12.0); Nucleated Red Blood Cells % 0.1 %
[2021-09-23 05:43] LABS: Basophils # (auto) 0.1 10 ^3/uL (0-0.2); Eosinophils % (auto) 1.6 % (0.0-7.0); Hematocrit 23.8 % (36.0-46.0); Lymphocytes % (auto) 19.2 % (10.0-50.0); Mean Corpuscular Hemoglobin 29.2 pg (28.0-32.0); Mean Corpuscular Hgb Conc. 34.4 g/dL (32.0-36.0); Mean Corpuscular Volume 84.8 fL (80.0-100.0); Neutrophils # (auto) 3.8 10 ^3/uL (1.6-8.6); Neutrophils % (auto) 61.8 % (37.0-80.0); Red Blood Cells 2.81 10^6/uL (4.0-5.20); Red Cell Distribution Width 14.7 % (11.8-14.3); White Blood Cell 6.1 10^3/uL (4.4-10.8)
[2021-09-23 05:59] LABS: Potassium 4.1 mmol/L (3.5-5.1)
[2021-09-23 06:09] LABS: BUN/Creatinine Ratio 27.4; Bilirubin, Total 0.6 mg/dL (0.2-1.0); Calcium 8.2 mg/dL (8.5-10.1); Total Protein 5.8 g/dL (6.4-8.2)
[2021-09-23] MEDS: MULTIPLE VITAMIN TAB PO SCH (10:00)
[2021-09-23] MEDS: FAMOTIDINE (10MG/ML) 2ML VL IV SCH (10:27)
[2021-09-23] MEDS: ZINC SULFATE 220mg CAP or TAB PO SCH (10:27)
[2021-09-23] MEDS: ASPirin 81 mg TAB PO SCH (10:27)
[2021-09-23] MEDS: HEPARIN SODIUM (PORCINE) 5000 UNITS/ML 1ML VIAL SC SCH ×2 (10:40→21:06)
[2021-09-23] MEDS ORDERED: PANTOPRAZOLE 40 MG TAB PO ONE (12:45)
[2021-09-23] MEDS ORDERED: FERROUS SULFATE 300 MG/5 ML ORAL LIQ PO ONE (12:45)
[2021-09-23] MEDS: ACETAMINOPHEN 325 MG TAB PO PRN (18:50)
[2021-09-23] MEDS: FERROUS SULFATE 300 MG/5 ML ORAL LIQ PO SCH (20:59)
[2021-09-24] MEDS: PIPERACILLIN-TAZOB 3.375GM 100 ML IV SCH ×2 (02:19→08:01)
[2021-09-24] MEDS: ACETAMINOPHEN 325 MG TAB PO PRN (02:19)
[2021-09-24 05:01] VITALS: BP 173/83
[2021-09-24] MEDS: hydrALAZINE HCL 20 MG/ML VL IV PRN (05:04)
[2021-09-24 08:44] VITALS: BP 166/73
[2021-09-24] MEDS ORDERED: AMOX500T86 PO (09:13)
[2021-09-24] MEDS ORDERED: FERR-7 PO (09:13)
[2021-09-24] MEDS ORDERED: FLUC200T50 PO (09:13)
[2021-09-24] MEDS: ASPirin 81 mg TAB PO SCH (09:52)
[2021-09-24] MEDS: FERROUS SULFATE 300 MG/5 ML ORAL LIQ PO SCH (09:53)
[2021-09-24] MEDS: ZINC SULFATE 220mg CAP or TAB PO SCH (09:53)
[2021-09-24] MEDS ORDERED: PANTOPRAZOLE 40 MG TAB PO SCH (10:00)
[2021-09-24] MEDS ORDERED: ENALAPRIL MALEATE 10 MG TAB PO SCH (10:00)
[2021-09-24] MEDS: MULTIPLE VITAMIN TAB PO SCH (10:00)
[2021-09-24] MEDS: HEPARIN SODIUM (PORCINE) 5000 UNITS/ML 1ML VIAL SC SCH (10:01)
[2021-09-24 11:33] VITALS: BP 166/73
== END 2021-09-24 12:30 | disposition home or self-care (01) | DRG 177 ==
LOC: ER 10:36 → EDBD 10:36 → CENTRAL 22:04
PROVIDERS: ADMIT Nurse Practitioner Family; ATTEND Internal Medicine
DX: J69.0 Pneumonitis due to inhalation of food and vomit (principal); G92.8 Other toxic encephalopathy; E43 Unspecified severe protein-calorie malnutrition; N39.0 Urinary tract infection, site not specified; R62.7 Adult failure to thrive; R13.10 Dysphagia, unspecified; E86.0 Dehydration; G30.9 Alzheimer's disease, unspecified; F02.80 Dementia in other diseases classified elsewhere, unspecified severity, without behavioral disturbance, psychotic disturbance, mood disturbance, and anxiety; N18.30 Chronic kidney disease, stage 3 unspecified; Z20.822 Contact with and (suspected) exposure to COVID-19; K21.9 Gastro-esophageal reflux disease without esophagitis; M19.90 Unspecified osteoarthritis, unspecified site; D64.9 Anemia, unspecified; E11.22 Type 2 diabetes mellitus with diabetic chronic kidney disease; I12.9 Hypertensive chronic kidney disease with stage 1 through stage 4 chronic kidney disease, or unspecified chronic kidney disease; Z74.01 Bed confinement status
CPT/HCPCS: 36415; 70450; 71045; 80048; 80053; 81001; 82962; 83540; 83550; 83880; 84484; 85025; 87086; 87088; 87426; 92610; 93005; 93306; 96361; 96365; 96375; 97110; 97116; 97163; 97530; G0378; J0696; J2543; J3490

== ENCOUNTER 2022-05-11 15:01 | Inpatient (IN) | payer OTHER, MEDICAID ==
[~2022-05-11] VITALS: Ht 160 cm; Wt 84.8 kg
[~2022-05-11 15:01] MED LIST changes: +AMOX500T86 PO; +FERR-7 PO; +FLUC200T50 PO
[2022-05-11 16:40] LABS: Basophils # (auto) 0.1 10 ^3/uL (0-0.2); Basophils % (auto) 0.7 % (0.0-2.0); Eosinophils # (auto) 0.2 10 ^3/uL (0-0.8); Eosinophils % (auto) 1.6 % (0.0-7.0); Hematocrit 33.5 % (36.0-46.0); Hemoglobin 10.7 g/dL (12.2-16.2); Lymphocytes # (auto) 1.1 10 ^3/uL (0.4-5.4); Lymphocytes % (auto) 10.3 % (10.0-50.0); Mean Corpuscular Hemoglobin 27.7 pg (28.0-32.0); Mean Corpuscular Hgb Conc. 31.9 g/dL (32.0-36.0); Mean Corpuscular Volume 86.7 fL (80.0-100.0); Monocytes # (auto) 0.8 10 ^3/uL (0-1.3); Neutrophils # (auto) 8.9 10 ^3/uL (1.6-8.6); Neutrophils % (auto) 80.4 % (37.0-80.0); Nucleated Red Blood Cells % 0.1 %; Red Blood Cells 3.86 10^6/uL (4.0-5.20); Red Cell Distribution Width 14.8 % (11.8-14.3); White Blood Cell 11.1 10^3/uL (4.4-10.8)
[2022-05-11 16:53] LABS: Albumin 2.4 g/dL (3.4-5.0); Calcium 8.2 mg/dL (8.5-10.1); Potassium 3.4 mmol/L (3.5-5.1)
[2022-05-11 16:57] LABS: BUN/Creatinine Ratio 17.6; Bilirubin, Total 0.4 mg/dL (0.2-1.0); Total Protein 6.8 g/dL (6.4-8.2)
[2022-05-12] MEDS ORDERED: MORPHINE SULFATE INJ 2 MG/ml SYRG IV PRN ×2 (01:00→01:30)
[2022-05-12] MEDS ORDERED: ONDANSETRON HCL 4 MG/2 ML VIAL IV PRN (01:00)
[2022-05-12] MEDS ORDERED: ALBUMIN 25% 100 ML IV ONE (01:00)
[2022-05-12] MEDS ORDERED: AZITHROMYCIN 500MG/ 250ML 250 ML IV ONE (01:00)
[2022-05-12] MEDS ORDERED: DOCUSATE SOD 100 MG CAP PO PRN (01:00)
[2022-05-12] MEDS ORDERED: NITROGLYCERIN 0.4 MG SL TAB SL PRN (01:30)
[2022-05-12] MEDS: SODIUM CHLORIDE 0.9% 1,000 ML IV SCH ×2 (02:03→16:32)
[2022-05-12] MEDS ORDERED: ACET-1156 PO (03:14)
[2022-05-12] MEDS ORDERED: DICL1GEL72 EX (03:14)
[2022-05-12] MEDS ORDERED: DEXT1SYP9 PO (03:14)
[2022-05-12] MEDS ORDERED: FURO40TA4 PO (03:14)
[2022-05-12] MEDS ORDERED: MIRT-68 PO (03:14)
[2022-05-12] MEDS ORDERED: QUET25TA37 PO (03:14)
[2022-05-12 07:55] LABS: Basophils # (auto) 0.1 10 ^3/uL (0-0.2); Basophils % (auto) 1.5 % (0.0-2.0); Eosinophils # (auto) 0.3 10 ^3/uL (0-0.8); Eosinophils % (auto) 3.5 % (0.0-7.0); Hematocrit 31.1 % (36.0-46.0); Hemoglobin 10.4 g/dL (12.2-16.2); Lymphocytes # (auto) 1.6 10 ^3/uL (0.4-5.4); Lymphocytes % (auto) 16.7 % (10.0-50.0); Mean Corpuscular Hemoglobin 28.8 pg (28.0-32.0); Mean Corpuscular Hgb Conc. 33.4 g/dL (32.0-36.0); Mean Corpuscular Volume 86.2 fL (80.0-100.0); Monocytes # (auto) 1.2 10 ^3/uL (0-1.3); Monocytes % (auto) 12.3 % (0.0-12.0); Neutrophils # (auto) 6.4 10 ^3/uL (1.6-8.6); Nucleated Red Blood Cells % 0.4 %; Red Blood Cells 3.61 10^6/uL (4.0-5.20); White Blood Cell 9.8 10^3/uL (4.4-10.8)
[2022-05-12 09:37] LABS: Albumin 2.4 g/dL (3.4-5.0); Calcium 8.1 mg/dL (8.5-10.1); Potassium 3.1 mmol/L (3.5-5.1)
[2022-05-12 09:41] LABS: BUN/Creatinine Ratio 18.1; Bilirubin, Total 0.3 mg/dL (0.2-1.0); Total Protein 6.2 g/dL (6.4-8.2)
[2022-05-12 09:47] VITALS: BP 109/61
[2022-05-12] MEDS: FAMOTIDINE (10MG/ML) 2ML VL IV SCH (10:05)
[2022-05-12] MEDS: HYDROcodone-ACET 5/325MG TAB PO PRN ×4 (12:05→22:49)
[2022-05-12 12:28] VITALS: BP 109/61
[2022-05-12 12:41] VITALS: BP 109/61
[2022-05-12 13:00] VITALS: BP 167/69
[2022-05-12 17:24] VITALS: BP 177/63
[2022-05-12] MEDS: AZITHROMYCIN 500MG/ 250ML 250 ML IV SCH (21:17)
[2022-05-12 22:00] VITALS: BP 166/65
[2022-05-12] MEDS ORDERED: hydrALAZINE HCL 20 MG/ML VL IV ONE (23:15)
[2022-05-13] VITALS (8 sets, daily range): BP systolic 119–171; BP diastolic 54–66
[2022-05-13 05:24] LABS: Basophils # (auto) 0.1 10 ^3/uL (0-0.2); Basophils % (auto) 0.8 % (0.0-2.0); Eosinophils # (auto) 0.2 10 ^3/uL (0-0.8); Eosinophils % (auto) 2.5 % (0.0-7.0); Hematocrit 31.8 % (36.0-46.0); Hemoglobin 10.6 g/dL (12.2-16.2); Lymphocytes # (auto) 0.9 10 ^3/uL (0.4-5.4); Lymphocytes % (auto) 12.5 % (10.0-50.0); Mean Corpuscular Hemoglobin 28.8 pg (28.0-32.0); Mean Corpuscular Hgb Conc. 33.3 g/dL (32.0-36.0); Mean Corpuscular Volume 86.6 fL (80.0-100.0); Monocytes # (auto) 0.9 10 ^3/uL (0-1.3); Monocytes % (auto) 11.9 % (0.0-12.0); Neutrophils # (auto) 5.4 10 ^3/uL (1.6-8.6); Neutrophils % (auto) 72.3 % (37.0-80.0); Nucleated Red Blood Cells % 0.1 %; Red Blood Cells 3.67 10^6/uL (4.0-5.20); Red Cell Distribution Width 14.6 % (11.8-14.3); White Blood Cell 7.4 10^3/uL (4.4-10.8)
[2022-05-13 05:39] LABS: Potassium 3.1 mmol/L (3.5-5.1)
[2022-05-13 05:47] LABS: Albumin 2.8 g/dL (3.4-5.0); BUN/Creatinine Ratio 17.3; Calcium 8.7 mg/dL (8.5-10.1)
[2022-05-13 05:59] LABS: Bilirubin, Total 0.4 mg/dL (0.2-1.0); Total Protein 6.7 g/dL (6.4-8.2)
[2022-05-13] MEDS ORDERED: cloNIDine HCL 0.1 MG TAB PO ONE (07:00)
[2022-05-13] MEDS ORDERED: POTASSIUM CHL 20MEQ/100ML 100 ML IV ONE (07:00)
[2022-05-13] MEDS: FAMOTIDINE (10MG/ML) 2ML VL IV SCH (09:18)
[2022-05-13] MEDS: SODIUM CHLORIDE 0.9% 1,000 ML IV SCH (20:10)
[2022-05-13] MEDS: AZITHROMYCIN 500MG/ 250ML 250 ML IV SCH (21:32)
[2022-05-14] MEDS: SODIUM CHLORIDE 0.9% 1,000 ML IV SCH ×2 (03:00→21:24)
[2022-05-14 05:00] VITALS: BP 137/54
[2022-05-14 09:00] VITALS: BP 143/60
[2022-05-14] MEDS: FAMOTIDINE (10MG/ML) 2ML VL IV SCH (09:24)
[2022-05-14] MEDS ORDERED: FLEET ENEMA(ADULT) 135 ML PR ONE (12:00)
[2022-05-14 13:00] VITALS: BP 146/60
[2022-05-14 17:00] VITALS: BP 143/57
[2022-05-14] MEDS: AZITHROMYCIN 500MG/ 250ML 250 ML IV SCH (21:23)
[2022-05-14 22:00] VITALS: BP 147/70
[2022-05-15] MEDS ORDERED: POTASSIUM EFFERVESENT TAB 25 MEQ PO ONE (01:00)
[2022-05-15] MEDS: HYDROcodone-ACET 5/325MG TAB PO PRN (01:08)
[2022-05-15 05:00] VITALS: BP_SYST 125; BP_SYST 151; BP_DIAS 66; BP_DIAS 75
[2022-05-15 09:11] VITALS: BP 137/60
[2022-05-15] MEDS: FAMOTIDINE (10MG/ML) 2ML VL IV SCH (10:02)
[2022-05-15] MEDS ORDERED: cefTRIAXone 1GM/50ML D5W 50 ML IV ONE (12:00)
[2022-05-15] MEDS: SODIUM CHLORIDE 0.9% 1,000 ML IV SCH (12:20)
[2022-05-15] MEDS ORDERED: LEVO500T31 PO (12:32)
[2022-05-15 13:00] VITALS: BP 148/63
[2022-05-15] MEDS: metroNIDAZOLE 500MG/100ML 100 ML IV SCH ×2 (14:00→21:09)
[2022-05-15 16:58] VITALS: BP 182/80
[2022-05-15] MEDS ORDERED: hydrALAZINE HCL 20 MG/ML VL IV PRN (17:00)
[2022-05-15 19:01] VITALS: BP 134/59
[2022-05-15] MEDS: ACETAMINOPHEN 325 MG TAB PO PRN (19:41)
[2022-05-15 22:00] VITALS: BP 132/58
[2022-05-16 05:00] VITALS: BP 154/81
[2022-05-16] MEDS: SODIUM CHLORIDE 0.9% 1,000 ML IV SCH (05:22)
[2022-05-16] MEDS: metroNIDAZOLE 500MG/100ML 100 ML IV SCH ×2 (05:22→21:26)
[2022-05-16 09:00] VITALS: BP 170/73
[2022-05-16] MEDS: FAMOTIDINE (10MG/ML) 2ML VL IV SCH (11:00)
[2022-05-16] MEDS: ACETAMINOPHEN 325 MG TAB PO PRN ×2 (11:00→21:27)
[2022-05-16] MEDS: cefTRIAXone 1GM/50ML D5W 50 ML IV SCH (11:00)
[2022-05-16 12:32] LABS: Basophils # (auto) 0.1 10 ^3/uL (0-0.2); Eosinophils # (auto) 0.3 10 ^3/uL (0-0.8); Eosinophils % (auto) 3.4 % (0.0-7.0); Hematocrit 33.9 % (36.0-46.0); Lymphocytes # (auto) 1.4 10 ^3/uL (0.4-5.4); Lymphocytes % (auto) 18.9 % (10.0-50.0); Mean Corpuscular Hemoglobin 28.2 pg (28.0-32.0); Mean Corpuscular Hgb Conc. 32.6 g/dL (32.0-36.0); Mean Corpuscular Volume 86.5 fL (80.0-100.0); Monocytes # (auto) 0.7 10 ^3/uL (0-1.3); Monocytes % (auto) 9.9 % (0.0-12.0); Neutrophils % (auto) 66.8 % (37.0-80.0); Red Blood Cells 3.92 10^6/uL (4.0-5.20); Red Cell Distribution Width 14.9 % (11.8-14.3); White Blood Cell 7.4 10^3/uL (4.4-10.8)
[2022-05-16 12:48] LABS: Calcium 8.7 mg/dL (8.5-10.1); Magnesium 2.2 mg/dL (1.6-2.6); Potassium 3.6 mmol/L (3.5-5.1)
[2022-05-16 13:00] VITALS: BP 146/72
[2022-05-16 17:11] VITALS: BP 188/79
[2022-05-16 21:45] VITALS: BP 143/65
[2022-05-17 05:11] VITALS: BP 178/65
[2022-05-17] MEDS: metroNIDAZOLE 500MG/100ML 100 ML IV SCH (05:24)
[2022-05-17 09:00] VITALS: BP 181/65
[2022-05-17] MEDS: cefTRIAXone 1GM/50ML D5W 50 ML IV SCH (09:00)
[2022-05-17] MEDS: FAMOTIDINE (10MG/ML) 2ML VL IV SCH (10:00)
[2022-05-17 13:00] VITALS: BP 136/78
[2022-05-17 16:57] VITALS: BP 184/79
[2022-05-17 17:52] VITALS: BP 142/80
== END 2022-05-17 18:52 | DRG 391 ==
LOC: ER 15:03 → OVERFLOW 05-12 01:28 → CENTRAL 05-12 09:41
PROVIDERS: ADMIT Nurse Practitioner Family; ATTEND Internal Medicine
DX: K52.9 Noninfective gastroenteritis and colitis, unspecified (principal); J18.9 Pneumonia, unspecified organism; L89.153 Pressure ulcer of sacral region, stage 3; S32.010A Wedge compression fracture of first lumbar vertebra, initial encounter for closed fracture; E44.0 Moderate protein-calorie malnutrition; K62.89 Other specified diseases of anus and rectum; D63.8 Anemia in other chronic diseases classified elsewhere; R60.1 Generalized edema; D72.829 Elevated white blood cell count, unspecified; E87.6 Hypokalemia; E88.09 Other disorders of plasma-protein metabolism, not elsewhere classified; Z20.822 Contact with and (suspected) exposure to COVID-19; K21.9 Gastro-esophageal reflux disease without esophagitis; I10 Essential (primary) hypertension; E11.9 Type 2 diabetes mellitus without complications; R19.4 Change in bowel habit; Z68.33 Body mass index [BMI] 33.0-33.9, adult
CPT/HCPCS: 36415; 71045; 74176; 80048; 80053; 82150; 82962; 83605; 83690; 83735; 84132; 84484; 85025; 93005; 96361; 96365; 96366; 97110; 97116; 97163; 97530; G0378; J0696; J3480; J3490; P9047

== ENCOUNTER 2023-07-28 18:56 | Emergency (ER) | payer OTHER ==
[~2023-07-28] VITALS: Ht 160 cm; Wt 72.0 kg
[~2023-07-28 18:56] MED LIST changes: +ACET-1881 PO; -AMOX500T86 PO; +CARB-112 PO; -CARB25TA75 PO; -CEPH500C PO; +DEXT1SYP9 PO; +DICL1GEL72 EX; +ENAL1TAB42 PO; -ENAL2.5T7 PO; +FURO40TA4 PO; +GABA-1308 PO; -GABA100C9 PO; +LEVO500T31 PO; +MIRT-93 PO; -SIMV-13 PO; +SIMV40TA18 PO
[2023-07-28] MEDS ORDERED: KETOROLAC TROMETH 60MG/2ML VIAL IM ONE (20:00)
[2023-07-28] MEDS ORDERED: MELO-335 PO (22:38)
[2023-07-29 00:09] VITALS: BP 131/59; TEMP 98.2
[2023-07-29 00:16] VITALS: PULSE 18; RESP 18; O2SAT 95
== END 2023-07-29 00:26 | disposition home or self-care (01) ==
LOC: ER 18:56 → EDBD 18:56 → EDUNIT# 18:56 → ER 07-29 00:25
DX: M17.11 Unilateral primary osteoarthritis, right knee (principal); I10 Essential (primary) hypertension; F03.90 Unspecified dementia, unspecified severity, without behavioral disturbance, psychotic disturbance, mood disturbance, and anxiety; M19.90 Unspecified osteoarthritis, unspecified site; Z79.899 Other long term (current) drug therapy
CPT/HCPCS: 73562; 96372; 99283; J1885

== ENCOUNTER 2023-08-02 22:07 | Inpatient (IN) | payer OTHER ==
[~2023-08-02] VITALS: Ht 160 cm; Wt 82.4 kg
[~2023-08-02 22:07] MED LIST changes: +MELO-335 PO
[2023-08-02] MEDS ORDERED: SODIUM CHLORIDE 0.9% 1,000 ML IV ONE (22:30)
[2023-08-02] MEDS ORDERED: ONDANSETRON HCL 4 MG/2 ML VIAL IV ONE (22:30)
[2023-08-02] MEDS ORDERED: ONDANSETRON ODT 4 MG TAB PO ONE (22:30)
[2023-08-02] MEDS ORDERED: IOHEXOL 350 MG/ML 100ML IJ ONE (23:13)
[2023-08-02] MEDS ORDERED: SODIUM CHLORIDE 0.9% 1,500 ML IV ONE (23:15)
[2023-08-02] MEDS ORDERED: VANCOMYCIN PER PHARMACY 0 MG IV SCH (23:15)
[2023-08-02] MEDS ORDERED: ALBUMIN 25% 100 ML IV ONE (23:15)
[2023-08-02] MEDS ORDERED: PANTOPRAZOLE 80 MG in SODIUM CHL 0.9% 100 ML IV ONE (23:15)
[2023-08-02 23:18] LABS: Basophils # (auto) 0.1 10 ^3/uL (0-0.2); Basophils % (auto) 0.4 % (0.0-2.0); Eosinophils # (auto) 0 10 ^3/uL (0-0.8); Eosinophils % (auto) 0.1 % (0.0-7.0); Lymphocytes # (auto) 1.1 10 ^3/uL (0.4-5.4); Neutrophils % (auto) 90.1 % (37.0-80.0)
[2023-08-02 23:20] LABS: Hematocrit 16.2 % (36.0-46.0); Lymphocytes % (auto) 5.8 % (10.0-50.0); Mean Corpuscular Hemoglobin 27.7 pg (28.0-32.0); Mean Corpuscular Hgb Conc. 32.6 g/dL (32.0-36.0); Monocytes # (auto) 0.7 10 ^3/uL (0-1.3); Monocytes % (auto) 3.6 % (0.0-12.0); Neutrophils # (auto) 16.5 10 ^3/uL (1.6-8.6); Nucleated Red Blood Cells % 0.1 %; Red Blood Cells 1.91 10^6/uL (4.0-5.20); Red Cell Distribution Width 15.2 % (11.8-14.3); White Blood Cell 18.3 10^3/uL (4.4-10.8)
[2023-08-02] MEDS ORDERED: VANCOMYCIN 1GM/200ML 250 ML IV NR (23:30)
[2023-08-02 23:31] LABS: Albumin 2.2 g/dL (3.2-4.8); Alkaline Phosphatase 60 U/L (46-116); Anion Gap 5 (5-15); Aspartate Aminotransferase 17 U/L (13-40); Bilirubin, Total 0.2 mg/dL (0.2-1.0); Blood Urea Nitrogen 43 mg/dL (9-23); Calcium 7.4 mg/dL (8.7-10.4); Carbon Dioxide 29 mmol/L (20-30); Chloride 107 mmol/L (98-107); Glucose 169 mg/dL (74-106); Magnesium 2.3 mg/dL (1.6-2.6); Potassium 4.5 mmol/L (3.5-5.1); Sodium 141 mmol/L (136-145); Total Protein 4.8 g/dL (5.7-8.2)
[2023-08-02 23:34] LABS: Hemoglobin 5.3 g/dL (12.2-16.2)
[2023-08-02 23:36] LABS: INR 1.23 (0.9-1.15); Partial Thromboplastin Time 27.9 SEC (24.5-34.5); Prothrombin Time 12.7 sec (9.3-11.8)
[2023-08-02 23:41] LABS: Alanine Aminotransferase 9 U/L (7-40)
[2023-08-02 23:43] LABS: Lactic Acid w/Reflex 3.3 mmol/L (0.4-2.0)
[2023-08-03] VITALS (19 sets, daily range): BP systolic 105–151; BP diastolic 45–67; PULSE 62–88; RESP 12–23; TEMP 97.8–98.9; O2SAT 96–100
[2023-08-03] MEDS ORDERED: PANTOPRAZOLE 40 MG/10 ML VIAL INJ IV ONE (00:07)
[2023-08-03] MEDS: PIPERACILLIN-TAZOB 3.375GM 100 ML IV SCH ×5 (00:23→23:59)
[2023-08-03] MEDS ORDERED: ACETAMINOPHEN 500 MG TAB PO ONE (00:30)
[2023-08-03 01:47] LABS: Ferritin 385.9 ng/mL (10-291)
[2023-08-03] MEDS ORDERED: PIPERACILLIN-TAZOB 3.375GM 100 ML IV ONE (03:15)
[2023-08-03 03:50] LABS: % Iron Saturation 20.7 % (15-50)
[2023-08-03] MEDS ORDERED: PANTOPRAZOLE 40 MG/10 ML VIAL INJ IV SCH (10:00)
[2023-08-03 10:39] LABS: Hematocrit 25.8 % (36.0-46.0); Hemoglobin 8.4 g/dL (12.2-16.2)
[2023-08-03] MEDS ORDERED: VANCOMYCIN 1GM/200ML 250 ML IV ONE (12:00)
[2023-08-03] MEDS ORDERED: OCTREOTIDE ACETATE 100 MCG in SODIUM CHL 0.9% 50 ML IV ONE (12:30)
[2023-08-03] MEDS ORDERED: PANTOPRAZOLE 40mg/50ML NS AE 50 ML IV ONE (12:30)
[2023-08-03] MEDS: OCTREOTIDE ACETATE 500 MCG in SODIUM CHL 0.9% 99 ML IV SCH ×2 (13:20→23:23)
[2023-08-03] MEDS ORDERED: CALCIUM CHLOR(10%) 100MG/ML 10ML SYRINGE IV ONE (16:24)
[2023-08-03] MEDS ORDERED: ONDANSETRON HCL 4 MG/2 ML VIAL IV PRN ×2 (16:45→17:00)
[2023-08-03] MEDS ORDERED: MORPHINE SULFATE 4 MG/ML SYR/VIAL IV PRN (16:45)
[2023-08-03] MEDS ORDERED: D5W/SOD CHL 0.45% 1,000 ML IV ONE (17:00)
[2023-08-03] MEDS ORDERED: MORPHINE SULFATE INJ 2 MG/ml SYRG IV PRN (17:00)
[2023-08-03] MEDS ORDERED: NITROGLYCERIN 0.4 MG SL TAB SL PRN (17:00)
[2023-08-03] MEDS ORDERED: DEXTROSE (50%) 50ML SYRG IV PRN (17:00)
[2023-08-03] MEDS: InsuLIN REG 1unit/0.01ml Soln (100units/ml) SC SCH (18:00)
[2023-08-03] MEDS: MORPHINE SULFATE INJ 2 MG/ml SYRG IV SCH (18:00)
[2023-08-03] MEDS: PANTOPRAZOLE 40mg/50ML NS AE 50 ML IV SCH ×2 (18:09→21:26)
[2023-08-03] MEDS: ACCU-CHEK COMFORT CURVE STRIP VI SCH ×2 (18:19→23:59)
[2023-08-03] MEDS: ACETAMINOPHEN 325 MG TAB PO PRN (21:27)
[2023-08-03 22:26] LABS: Hematocrit 28.7 % (36.0-46.0)
[2023-08-04] VITALS (24 sets, daily range): BP systolic 98–163; BP diastolic 45–65; PULSE 52–67; RESP 10–12; TEMP 97.6–97.9; O2SAT 60–100
[2023-08-04] MEDS: InsuLIN REG 1unit/0.01ml Soln (100units/ml) SC SCH ×4 (00:05→17:36)
[2023-08-04] MEDS: MORPHINE SULFATE INJ 2 MG/ml SYRG IV SCH ×2 (02:00→06:00)
[2023-08-04] MEDS: PANTOPRAZOLE 40mg/50ML NS AE 50 ML IV SCH ×4 (03:00→20:04)
[2023-08-04 05:44] LABS: Chloride 108 mmol/L (98-107); Potassium 4.3 mmol/L (3.5-5.1); Sodium 140 mmol/L (136-145)
[2023-08-04 05:45] LABS: Anion Gap 6 (5-15); Calcium 8.1 mg/dL (8.5-10.1); Carbon Dioxide 26 mmol/L (20-30)
[2023-08-04 05:50] LABS: BUN/Creatinine Ratio 38.5 (10.0-20.0); Blood Urea Nitrogen 45 mg/dL (9-23); Glucose 160 mg/dL (74-106)
[2023-08-04] MEDS: ACCU-CHEK COMFORT CURVE STRIP VI SCH ×3 (06:00→17:33)
[2023-08-04] MEDS: PIPERACILLIN-TAZOB 3.375GM 100 ML IV SCH ×3 (08:07→23:41)
[2023-08-04] MEDS: OCTREOTIDE ACETATE 500 MCG in SODIUM CHL 0.9% 99 ML IV SCH (10:09)
[2023-08-04 10:36] LABS: Folate (Folic Acid) 5.51 ng/mL (>5.38)
[2023-08-04 11:06] LABS: Hemoglobin 8.5 g/dL (12.2-16.2); Red Blood Cells 3.15 10^6/uL (4.0-5.20)
[2023-08-04 11:08] LABS: Hematocrit 26.9 % (36.0-46.0); Mean Corpuscular Hgb Conc. 31.7 g/dL (32.0-36.0); Mean Corpuscular Volume 85.4 fL (80.0-100.0); Red Cell Distribution Width 16.3 % (11.8-14.3); White Blood Cell 26.5 10^3/uL (4.4-10.8)
[2023-08-04 11:30] LABS: Basophils % (manual) 0 (0.0-2.0); Blast Cells 0; Eosinophils % (manual) 0 (0-7); Metamyelocytes % 0; Myelocytes % 0; Promyelocytes % 0; Reactive Lymphocytes 0
[2023-08-04] MEDS: MORPHINE SULFATE INJ 2 MG/ml SYRG IV PRN ×2 (12:45→23:50)
[2023-08-04 13:16] LABS: Band Neutrophils % (manual) 9; Lymphocytes % (manual) 7 (10.0-50.0); Monocytes % (manual) 5 (0-12); Platelet Estimate Increased
[2023-08-04] MEDS: VANCOMYCIN 750mg/250ml 250 ML IV SCH (15:28)
[2023-08-04] MEDS: MUPIROCIN 2% OINT 15gm or 22gm FOR MRSA NARES EACHNOSTRI SCH (22:00)
[2023-08-04] MEDS ORDERED: MUPIROCIN 2% OINT 15gm or 22gm FOR MRSA NARES EACHNOSTRI SCH (22:00)
[2023-08-04 23:48] LABS: Hematocrit 29.9 % (36.0-46.0); Hemoglobin 9.7 g/dL (12.2-16.2)
[2023-08-05] VITALS (12 sets, daily range): BP systolic 128–159; BP diastolic 50–59; PULSE 56–69; RESP 9–12; TEMP 97.9–98; O2SAT 89–97
[2023-08-05] MEDS: PANTOPRAZOLE 40mg/50ML NS AE 50 ML IV SCH ×5 (03:00→23:00)
[2023-08-05] MEDS: ACCU-CHEK COMFORT CURVE STRIP VI SCH ×5 (06:00→23:09)
[2023-08-05] MEDS: PIPERACILLIN-TAZOB 3.375GM 100 ML IV SCH ×2 (06:00→18:44)
[2023-08-05] MEDS: InsuLIN REG 1unit/0.01ml Soln (100units/ml) SC SCH ×5 (06:00→23:08)
[2023-08-05] MEDS: MUPIROCIN 2% OINT 15gm or 22gm FOR MRSA NARES EACHNOSTRI SCH ×2 (09:47→22:00)
[2023-08-05 12:00] LABS: Hemoglobin 8.7 g/dL (12.2-16.2)
[2023-08-05] MEDS: VANCOMYCIN 750mg/250ml 250 ML IV SCH (16:37)
[2023-08-05 22:39] LABS: Hematocrit 28.3 % (36.0-46.0)
[2023-08-06] MEDS: PIPERACILLIN-TAZOB 3.375GM 100 ML IV SCH ×3 (01:41→18:22)
[2023-08-06] MEDS: PANTOPRAZOLE 40mg/50ML NS AE 50 ML IV SCH ×4 (05:15→20:00)
[2023-08-06] MEDS: InsuLIN REG 1unit/0.01ml Soln (100units/ml) SC SCH ×4 (05:30→23:27)
[2023-08-06] MEDS: ACCU-CHEK COMFORT CURVE STRIP VI SCH ×4 (05:30→23:25)
[2023-08-06 06:33] LABS: Eosinophils # (auto) 0.1 10 ^3/uL (0-0.8); Lymphocytes # (auto) 2.2 10 ^3/uL (0.4-5.4); Monocytes % (auto) 6.4 % (0.0-12.0)
[2023-08-06 06:37] LABS: Basophils # (auto) 0.1 10 ^3/uL (0-0.2); Basophils % (auto) 0.5 % (0.0-2.0); Eosinophils % (auto) 0.6 % (0.0-7.0); Lymphocytes % (auto) 13.8 % (10.0-50.0); Mean Corpuscular Hemoglobin 27.9 pg (28.0-32.0); Mean Corpuscular Hgb Conc. 33.2 g/dL (32.0-36.0); Mean Corpuscular Volume 83.9 fL (80.0-100.0); Neutrophils # (auto) 12.6 10 ^3/uL (1.6-8.6); Neutrophils % (auto) 78.7 % (37.0-80.0); Red Blood Cells 3.22 10^6/uL (4.0-5.20); Red Cell Distribution Width 16.4 % (11.8-14.3)
[2023-08-06 06:54] LABS: Anion Gap 6 (5-15); Carbon Dioxide 27 mmol/L (20-30); Chloride 108 mmol/L (98-107); Sodium 141 mmol/L (136-145)
[2023-08-06 06:56] LABS: Calcium 7.9 mg/dL (8.7-10.4)
[2023-08-06 07:00] LABS: BUN/Creatinine Ratio 34.5 (10.0-20.0); Blood Urea Nitrogen 41 mg/dL (9-23); Glucose 73 mg/dL (74-106)
[2023-08-06 07:01] LABS: Magnesium 2.6 mg/dL (1.6-2.6)
[2023-08-06 09:20] VITALS: BP 159/65; PULSE 58; RESP 16; TEMP 98; O2SAT 95
[2023-08-06 10:39] LABS: Hemoglobin 8.7 g/dL (12.2-16.2)
[2023-08-06 10:43] LABS: Hematocrit 26.9 % (36.0-46.0)
[2023-08-06] MEDS ORDERED: GASTROGRAFIN 120 ML SOL ONE (13:32)
[2023-08-06] MEDS ORDERED: EZ-GAS II GRANULES (RADIOLOGY USE) PO ONE (13:32)
[2023-08-06 13:39] VITALS: BP 152/59; PULSE 69; RESP 17; TEMP 98.1; O2SAT 92
[2023-08-06] MEDS: MUPIROCIN 2% OINT 15gm or 22gm FOR MRSA NARES EACHNOSTRI SCH ×2 (18:21→21:04)
[2023-08-06 20:00] VITALS: PULSE 68
[2023-08-06 22:00] VITALS: BP 152/71; PULSE 71; RESP 22; TEMP 98.6; O2SAT 90
[2023-08-06 22:14] LABS: Hemoglobin 8.8 g/dL (12.2-16.2)
[2023-08-06 22:16] LABS: Hematocrit 27.5 % (36.0-46.0)
[2023-08-07] MEDS: PANTOPRAZOLE 40mg/50ML NS AE 50 ML IV SCH ×2 (00:35→05:23)
[2023-08-07] MEDS: PIPERACILLIN-TAZOB 3.375GM 100 ML IV SCH ×3 (01:46→17:34)
[2023-08-07 05:00] VITALS: BP 160/67; PULSE 63; RESP 22; TEMP 98.5; O2SAT 95
[2023-08-07] MEDS: ACCU-CHEK COMFORT CURVE STRIP VI SCH ×3 (05:23→17:16)
[2023-08-07] MEDS: InsuLIN REG 1unit/0.01ml Soln (100units/ml) SC SCH ×3 (05:45→17:15)
[2023-08-07 08:00] VITALS: PULSE 55; O2SAT 97
[2023-08-07] MEDS: MUPIROCIN 2% OINT 15gm or 22gm FOR MRSA NARES EACHNOSTRI SCH ×2 (09:01→22:00)
[2023-08-07 10:07] VITALS: BP 156/70; PULSE 63; RESP 17; TEMP 98.3; O2SAT 94
[2023-08-07] MEDS: MORPHINE SULFATE INJ 2 MG/ml SYRG IV PRN (11:23)
[2023-08-07] MEDS: SUCRALFATE 1 GM/10 ML ORAL SUSP PO SCH ×3 (11:30→22:00)
[2023-08-07 12:57] VITALS: BP 115/33; PULSE 69; RESP 19; TEMP 97.6; O2SAT 93
[2023-08-07 20:00] VITALS: PULSE 55; O2SAT 97
[2023-08-07 22:00] VITALS: BP 144/56; PULSE 69; PULSE 71; RESP 12; TEMP 98; O2SAT 89; O2SAT 97
[2023-08-07] MEDS: PANTOPRAZOLE 40 MG/10 ML VIAL INJ IV SCH (22:00)
[2023-08-08] VITALS (16 sets, daily range): BP systolic 93–147; BP diastolic 42–103; PULSE 58–100; RESP 12–18; TEMP 97.1–98.6; O2SAT 69–100
[2023-08-08] MEDS: ACETAMINOPHEN 325 MG TAB PO PRN (02:07)
[2023-08-08] MEDS: PIPERACILLIN-TAZOB 3.375GM 100 ML IV SCH ×2 (02:14→09:37)
[2023-08-08] MEDS: InsuLIN REG 1unit/0.01ml Soln (100units/ml) SC SCH ×4 (02:28→18:00)
[2023-08-08] MEDS: ACCU-CHEK COMFORT CURVE STRIP VI SCH ×4 (02:31→17:29)
[2023-08-08] MEDS: SUCRALFATE 1 GM/10 ML ORAL SUSP PO SCH ×5 (06:09→22:00)
[2023-08-08 06:48] LABS: Anion Gap 8 (5-15); Carbon Dioxide 26 mmol/L (20-30); Chloride 111 mmol/L (98-107); Potassium 3.7 mmol/L (3.5-5.1); Sodium 145 mmol/L (136-145)
[2023-08-08 06:50] LABS: Calcium 7.4 mg/dL (8.7-10.4)
[2023-08-08 06:54] LABS: Glucose 150 mg/dL (74-106)
[2023-08-08 06:55] LABS: Blood Urea Nitrogen 38 mg/dL (9-23)
[2023-08-08 06:59] LABS: Basophils # (auto) 0 10 ^3/uL (0-0.2); Eosinophils # (auto) 0 10 ^3/uL (0-0.8)
[2023-08-08 07:01] LABS: Basophils % (auto) 0.2 % (0.0-2.0); Eosinophils % (auto) 0.1 % (0.0-7.0); Hematocrit 19.7 % (36.0-46.0); Lymphocytes # (auto) 1.8 10 ^3/uL (0.4-5.4); Lymphocytes % (auto) 7.4 % (10.0-50.0); Mean Corpuscular Hemoglobin 27.8 pg (28.0-32.0); Mean Corpuscular Hgb Conc. 31.9 g/dL (32.0-36.0); Monocytes # (auto) 1.7 10 ^3/uL (0-1.3); Neutrophils # (auto) 21.1 10 ^3/uL (1.6-8.6); Neutrophils % (auto) 85.3 % (37.0-80.0); Red Blood Cells 2.26 10^6/uL (4.0-5.20); Red Cell Distribution Width 17.3 % (11.8-14.3); White Blood Cell 24.7 10^3/uL (4.4-10.8)
[2023-08-08 07:53] LABS: Hemoglobin 6.3 g/dL (12.2-16.2)
[2023-08-08] MEDS: PANTOPRAZOLE 40 MG/10 ML VIAL INJ IV SCH ×2 (09:37→22:39)
[2023-08-08] MEDS: MUPIROCIN 2% OINT 15gm or 22gm FOR MRSA NARES EACHNOSTRI SCH ×2 (09:38→22:40)
[2023-08-08] MEDS ORDERED: FUROSEMIDE 20 MG/2 ML VIAL IV ONE (13:00)
[2023-08-08] MEDS: MORPHINE SULFATE INJ 2 MG/ml SYRG IV PRN (14:20)
[2023-08-09] VITALS (39 sets, daily range): BP systolic 59–152; BP diastolic 26–88; PULSE 55–84; RESP 12–18; TEMP 97.1–98.9; O2SAT 100
[2023-08-09] MEDS: ACCU-CHEK COMFORT CURVE STRIP VI SCH ×5 (00:46→23:42)
[2023-08-09 05:41] LABS: Hematocrit 25.7 % (36.0-46.0); Hemoglobin 8.5 g/dL (12.2-16.2); Mean Corpuscular Hgb Conc. 33.1 g/dL (32.0-36.0); Mean Corpuscular Volume 90.6 fL (80.0-100.0); Red Blood Cells 2.84 10^6/uL (4.0-5.20); Red Cell Distribution Width 16.4 % (11.8-14.3); White Blood Cell 24.9 10^3/uL (4.4-10.8)
[2023-08-09 05:56] LABS: Basophils % (manual) 0 (0.0-2.0); Blast Cells 0; Calcium 7.8 mg/dL (8.5-10.1); Chloride 112 mmol/L (98-107); Eosinophils % (manual) 0 (0-7); Metamyelocytes % 0; Myelocytes % 0; Potassium 3.9 mmol/L (3.5-5.1); Promyelocytes % 0; Reactive Lymphocytes 0; Sodium 147 mmol/L (136-145)
[2023-08-09] MEDS: SUCRALFATE 1 GM/10 ML ORAL SUSP PO SCH ×5 (05:56→21:08)
[2023-08-09 05:57] LABS: Anion Gap 8 (5-15); Carbon Dioxide 27 mmol/L (20-30)
[2023-08-09] MEDS: InsuLIN REG 1unit/0.01ml Soln (100units/ml) SC SCH ×4 (06:00→23:49)
[2023-08-09 06:02] LABS: BUN/Creatinine Ratio 33.3 (10.0-20.0); Glucose 133 mg/dL (74-106)
[2023-08-09 06:06] LABS: Blood Urea Nitrogen 55 mg/dL (9-23)
[2023-08-09 07:00] LABS: Band Neutrophils % (manual) 6; Lymphocytes % (manual) 7 (10.0-50.0); Monocytes % (manual) 10 (0-12); Platelet Estimate Adequate
[2023-08-09] MEDS: MUPIROCIN 2% OINT 15gm or 22gm FOR MRSA NARES EACHNOSTRI SCH (08:46)
[2023-08-09] MEDS: PANTOPRAZOLE 40 MG/10 ML VIAL INJ IV SCH ×2 (08:46→21:08)
[2023-08-09] MEDS: cefTRIAXone 1GM/50ML D5W 50 ML IV SCH (08:46)
[2023-08-09] MEDS ORDERED: CLINIMIX PER PHARMACY 0 ML IV SCH (10:45)
[2023-08-09 11:15] LABS: Magnesium 2.6 mg/dL (1.6-2.6)
[2023-08-09 11:17] LABS: Phosphorus 3.9 mg/dL (2.4-5.1)
[2023-08-09] MEDS ORDERED: IRON SUCROSE COMPLEX 200 MG in SODIUM CHL 0.9% 100 ML IV SCH (12:00)
[2023-08-09] MEDS ORDERED: SODIUM CHLORIDE 0.9% 500 ML IV ONE (14:00)
[2023-08-09] MEDS: SODIUM FERR GLUC 62.5MG/5ML 125 MG in SODIUM CHL 0.9% 100 ML IV SCH (14:10)
[2023-08-09 14:31] LABS: Hematocrit 19.9 % (36.0-46.0)
[2023-08-09 14:44] LABS: Hemoglobin 6.3 g/dL (12.2-16.2)
[2023-08-09] MEDS: AMINO ACID INFUSION IN D10W 1,000 ML IV NR (20:28)
[2023-08-09] MEDS: MORPHINE SULFATE INJ 2 MG/ml SYRG IV PRN (20:39)
[2023-08-09 20:52] LABS: Hematocrit 28.1 % (36.0-46.0); Hemoglobin 8.7 g/dL (12.2-16.2); Mean Corpuscular Hemoglobin 27.8 pg (28.0-32.0); Mean Corpuscular Volume 89.7 fL (80.0-100.0); Red Blood Cells 3.14 10^6/uL (4.0-5.20); Red Cell Distribution Width 19.5 % (11.8-14.3); White Blood Cell 27.3 10^3/uL (4.4-10.8)
[2023-08-09 21:07] LABS: Blast Cells 0; Metamyelocytes % 0; Myelocytes % 0; Promyelocytes % 0; Reactive Lymphocytes 0
[2023-08-09 22:23] LABS: Band Neutrophils % (manual) 5; Basophils % (manual) 1 (0.0-2.0); Eosinophils % (manual) 2 (0-7); Lymphocytes % (manual) 7 (10.0-50.0); Monocytes % (manual) 6 (0-12)
[2023-08-09 22:24] LABS: Anisocytosis Slight; Platelet Estimate Adequate
[2023-08-10] VITALS (105 sets, daily range): BP systolic 101–154; BP diastolic 32–71; PULSE 56–80; RESP 6–14; TEMP 97.6–98.4; O2SAT 100
[2023-08-10] MEDS: MORPHINE SULFATE INJ 2 MG/ml SYRG IV PRN ×2 (00:59→06:20)
[2023-08-10 01:43] LABS: Red Blood Cells 2.91 10^6/uL (4.0-5.20)
[2023-08-10 01:45] LABS: Hemoglobin 8.3 g/dL (12.2-16.2); Mean Corpuscular Hemoglobin 28.4 pg (28.0-32.0); Mean Corpuscular Hgb Conc. 31.8 g/dL (32.0-36.0); Mean Corpuscular Volume 89.4 fL (80.0-100.0); Red Cell Distribution Width 19.5 % (11.8-14.3); White Blood Cell 23.6 10^3/uL (4.4-10.8)
[2023-08-10 01:50] LABS: Basophils % (manual) 0 (0.0-2.0); Blast Cells 0; Eosinophils % (manual) 0 (0-7); Myelocytes % 0; Promyelocytes % 0; Reactive Lymphocytes 0
[2023-08-10 02:07] LABS: Albumin 2.3 g/dL (3.2-4.8); Alkaline Phosphatase 40 U/L (46-116); Anion Gap 6 (5-15); Aspartate Aminotransferase 12 U/L (13-40); BUN/Creatinine Ratio 25.8 (10.0-20.0); Bilirubin, Total 0.3 mg/dL (0.2-1.0); Calcium 7.3 mg/dL (8.7-10.4); Carbon Dioxide 25 mmol/L (20-30); Chloride 115 mmol/L (98-107); Glucose 138 mg/dL (74-106); Magnesium 2.6 mg/dL (1.6-2.6); Phosphorus 3.5 mg/dL (2.4-5.1); Potassium 3.8 mmol/L (3.5-5.1); Sodium 146 mmol/L (136-145); Total Protein 4.6 g/dL (5.7-8.2)
[2023-08-10 02:10] LABS: Alanine Aminotransferase < 9 U/L (7-40); Blood Urea Nitrogen 40 mg/dL (9-23)
[2023-08-10 02:31] LABS: Band Neutrophils % (manual) 5; Lymphocytes % (manual) 13 (10.0-50.0); Metamyelocytes % 1; Monocytes % (manual) 2 (0-12); Platelet Estimate Adequate
[2023-08-10 02:32] LABS: RBC Morphology Normal
[2023-08-10] MEDS: SUCRALFATE 1 GM/10 ML ORAL SUSP PO SCH ×4 (05:54→21:36)
[2023-08-10] MEDS: ACCU-CHEK COMFORT CURVE STRIP VI SCH ×4 (06:12→23:03)
[2023-08-10] MEDS: InsuLIN REG 1unit/0.01ml Soln (100units/ml) SC SCH ×4 (06:13→23:03)
[2023-08-10] MEDS: cefTRIAXone 1GM/50ML D5W 50 ML IV SCH (09:25)
[2023-08-10 09:45] LABS: Hematocrit 20.2 % (36.0-46.0)
[2023-08-10 09:50] LABS: Hemoglobin 6.7 g/dL (12.2-16.2)
[2023-08-10] MEDS: PANTOPRAZOLE 40 MG/10 ML VIAL INJ IV SCH ×2 (10:41→21:36)
[2023-08-10] MEDS: SODIUM FERR GLUC 62.5MG/5ML 125 MG in SODIUM CHL 0.9% 100 ML IV SCH (12:00)
[2023-08-10] MEDS ORDERED: OCTREOTIDE ACETATE 100 MCG in SODIUM CHL 0.9% 50 ML IV ONE (12:30)
[2023-08-10] MEDS: OCTREOTIDE ACETATE 500 MCG in SODIUM CHL 0.9% 99 ML IV SCH ×2 (14:03→23:56)
[2023-08-10] MEDS ORDERED: FUROSEMIDE 20 MG/2 ML VIAL IV ONE (14:30)
[2023-08-10] MEDS: AMINO ACID INFUSION IN D10W 1,000 ML IV NR (20:20)
[2023-08-10 21:27] LABS: Hematocrit 36.2 % (36.0-46.0); Hemoglobin 12.1 g/dL (12.2-16.2)
[2023-08-11] VITALS (79 sets, daily range): BP systolic 128–166; BP diastolic 48–102; PULSE 58–80; RESP 7–12; TEMP 97.3–98.3; O2SAT 99–100
[2023-08-11] MEDS: ACCU-CHEK COMFORT CURVE STRIP VI SCH ×3 (05:58→18:36)
[2023-08-11] MEDS: InsuLIN REG 1unit/0.01ml Soln (100units/ml) SC SCH ×3 (06:03→18:30)
[2023-08-11] MEDS: SUCRALFATE 1 GM/10 ML ORAL SUSP PO SCH ×4 (06:07→21:43)
[2023-08-11 07:51] LABS: Hemoglobin 10.6 g/dL (12.2-16.2)
[2023-08-11 08:21] LABS: Potassium 3.2 mmol/L (3.5-5.1)
[2023-08-11 08:22] LABS: Calcium 7.6 mg/dL (8.5-10.1)
[2023-08-11 08:29] LABS: Albumin 2.4 g/dL (3.2-4.8); Phosphorus 2.6 mg/dL (2.4-5.1)
[2023-08-11 09:02] LABS: Magnesium 2.3 mg/dL (1.6-2.6)
[2023-08-11] MEDS ORDERED: IODIXANOL 320MG/ML 100ML BTL IV ONE ×2 (09:18→10:45)
[2023-08-11] MEDS ORDERED: LIDOCAINE 2%HCL (LOCAL ANESTH.) INJ 20ML MDV ONE ×2 (09:18→09:35)
[2023-08-11 09:23] LABS: INR 1.08 (0.9-1.15); Partial Thromboplastin Time 26.5 SEC (24.5-34.5); Prothrombin Time 11.3 sec (9.3-11.8)
[2023-08-11] MEDS ORDERED: fentaNYL CITRATE 100 MCG/2 ML VL ONE (09:34)
[2023-08-11] MEDS ORDERED: MIDAZOLAM HCL 2MG/2ML 2ml VIAL (1mg/ml) ONE (09:35)
[2023-08-11] MEDS: OCTREOTIDE ACETATE 500 MCG in SODIUM CHL 0.9% 99 ML IV SCH ×2 (09:48→20:03)
[2023-08-11] MEDS: cefTRIAXone 1GM/50ML D5W 50 ML IV SCH (09:48)
[2023-08-11] MEDS ORDERED: GELATIN 1 SPONGE SIZE 50 TOP ONE (10:29)
[2023-08-11] MEDS ORDERED: POTASSIUM PHOSP 22MEQ(15MMOLE) in NS 100 ML IV ONE (12:00)
[2023-08-11] MEDS: PANTOPRAZOLE 40 MG/10 ML VIAL INJ IV SCH ×2 (12:41→21:33)
[2023-08-11] MEDS: D5W 5% 1,000 ML IV SCH (12:42)
[2023-08-11] MEDS: SODIUM FERR GLUC 62.5MG/5ML 125 MG in SODIUM CHL 0.9% 100 ML IV SCH (12:50)
[2023-08-11] MEDS ORDERED: FUROSEMIDE 20 MG/2 ML VIAL IV ONE (13:45)
[2023-08-11] MEDS ORDERED: CALCIUM GLUC 1,000mg/50ml-NS 50 ML IV ONE (13:45)
[2023-08-11] MEDS ORDERED: POTASSIUM CHLORIDE 20 MEQ, LIDOCAINE 1% (LOCAL ANESTH.) 2 ML in SODIUM CHL 0.9% 100 ML IV ONE (20:00)
[2023-08-12] VITALS (45 sets, daily range): BP systolic 112–167; BP diastolic 52–98; PULSE 62–79; RESP 6–28; TEMP 97.5–98.8; O2SAT 100
[2023-08-12] MEDS: D5W 5% 1,000 ML IV SCH (02:07)
[2023-08-12] MEDS: OCTREOTIDE ACETATE 500 MCG in SODIUM CHL 0.9% 99 ML IV SCH (04:37)
[2023-08-12 05:33] LABS: Albumin 2.4 g/dL (3.2-4.8); Alkaline Phosphatase 44 U/L (46-116); Anion Gap 6 (5-15); Aspartate Aminotransferase 16 U/L (13-40); BUN/Creatinine Ratio 30.2 (10.0-20.0); Calcium 7.7 mg/dL (8.7-10.4); Carbon Dioxide 24 mmol/L (20-30); Chloride 116 mmol/L (98-107); Glucose 110 mg/dL (74-106); Magnesium 2.3 mg/dL (1.6-2.6); Phosphorus 3.1 mg/dL (2.4-5.1); Potassium 3.6 mmol/L (3.5-5.1); Sodium 146 mmol/L (136-145)
[2023-08-12 05:34] LABS: Bilirubin, Total 0.4 mg/dL (0.2-1.0); Total Protein 4.8 g/dL (5.7-8.2)
[2023-08-12 05:39] LABS: Hematocrit 35.9 % (36.0-46.0); Hemoglobin 11.5 g/dL (12.2-16.2)
[2023-08-12 05:40] LABS: Alanine Aminotransferase < 9 U/L (7-40); Blood Urea Nitrogen 29 mg/dL (9-23)
[2023-08-12] MEDS: InsuLIN REG 1unit/0.01ml Soln (100units/ml) SC SCH ×4 (06:00→18:05)
[2023-08-12] MEDS: ACCU-CHEK COMFORT CURVE STRIP VI SCH ×4 (06:46→17:59)
[2023-08-12] MEDS: SUCRALFATE 1 GM/10 ML ORAL SUSP PO SCH ×4 (07:00→21:49)
[2023-08-12] MEDS: PANTOPRAZOLE 40 MG/10 ML VIAL INJ IV SCH ×2 (09:58→21:50)
[2023-08-12] MEDS: cefTRIAXone 1GM/50ML D5W 50 ML IV SCH (09:59)
[2023-08-12] MEDS: SODIUM FERR GLUC 62.5MG/5ML 125 MG in SODIUM CHL 0.9% 100 ML IV SCH (14:40)
[2023-08-13] VITALS (49 sets, daily range): BP systolic 97–167; BP diastolic 47–81; PULSE 58–78; RESP 8–17; TEMP 97.6–98.7; O2SAT 68–100
[2023-08-13] MEDS: D5W 5% 1,000 ML IV SCH ×2 (01:15→19:41)
[2023-08-13] MEDS: InsuLIN REG 1unit/0.01ml Soln (100units/ml) SC SCH ×4 (01:18→18:00)
[2023-08-13] MEDS: ACCU-CHEK COMFORT CURVE STRIP VI SCH ×4 (01:18→17:56)
[2023-08-13] MEDS: SUCRALFATE 1 GM/10 ML ORAL SUSP PO SCH ×4 (05:57→21:23)
[2023-08-13 06:51] LABS: Chloride 113 mmol/L (98-107); Potassium 3.6 mmol/L (3.5-5.1); Sodium 143 mmol/L (136-145)
[2023-08-13 06:52] LABS: Anion Gap 6 (5-15); Carbon Dioxide 24 mmol/L (20-30)
[2023-08-13 06:53] LABS: Calcium 7.5 mg/dL (8.7-10.4)
[2023-08-13 06:55] LABS: Hematocrit 33.3 % (36.0-46.0); Hemoglobin 10.6 g/dL (12.2-16.2)
[2023-08-13 06:57] LABS: Blood Urea Nitrogen 24 mg/dL (9-23); Glucose 80 mg/dL (74-106)
[2023-08-13] MEDS: PANTOPRAZOLE 40 MG/10 ML VIAL INJ IV SCH ×2 (09:00→21:23)
[2023-08-13] MEDS: LIDOCAINE 5% TOPICAL PATCH TOP SCH (09:01)
[2023-08-13] MEDS: cefTRIAXone 1GM/50ML D5W 50 ML IV SCH (09:01)
[2023-08-14] VITALS (33 sets, daily range): BP systolic 127–168; BP diastolic 55–79; PULSE 59–78; RESP 10–22; TEMP 97.4–99.3; O2SAT 95–98
[2023-08-14] MEDS: InsuLIN REG 1unit/0.01ml Soln (100units/ml) SC SCH ×5 (06:00→22:00)
[2023-08-14] MEDS: ACCU-CHEK COMFORT CURVE STRIP VI SCH ×4 (06:25→22:33)
[2023-08-14] MEDS: SUCRALFATE 1 GM/10 ML ORAL SUSP PO SCH ×4 (06:25→22:09)
[2023-08-14 07:22] LABS: Hematocrit 33.2 % (36.0-46.0); Hemoglobin 10.5 g/dL (12.2-16.2)
[2023-08-14] MEDS: PANTOPRAZOLE 40 MG/10 ML VIAL INJ IV SCH (09:42)
[2023-08-14] MEDS: LIDOCAINE 5% TOPICAL PATCH TOP SCH (09:43)
[2023-08-14] MEDS: SODIUM FERR GLUC 62.5MG/5ML 125 MG in SODIUM CHL 0.9% 100 ML IV SCH (12:09)
[2023-08-14] MEDS: PANTOPRAZOLE 40 MG TAB PO SCH (22:09)
[2023-08-15 05:00] VITALS: BP 156/71; PULSE 70; RESP 22; TEMP 98.8; O2SAT 94
[2023-08-15] MEDS: InsuLIN REG 1unit/0.01ml Soln (100units/ml) SC SCH ×4 (06:08→21:41)
[2023-08-15] MEDS: ACCU-CHEK COMFORT CURVE STRIP VI SCH ×4 (06:08→21:37)
[2023-08-15] MEDS: SUCRALFATE 1 GM/10 ML ORAL SUSP PO SCH ×4 (06:38→21:36)
[2023-08-15 08:00] VITALS: BP 144/72; PULSE 64; PULSE 67; RESP 18; TEMP 99; O2SAT 96
[2023-08-15] MEDS: PANTOPRAZOLE 40 MG TAB PO SCH (09:25)
[2023-08-15] MEDS: LIDOCAINE 5% TOPICAL PATCH TOP SCH (09:26)
[2023-08-15 12:00] VITALS: BP 133/75; PULSE 67; RESP 16; TEMP 99; O2SAT 95
[2023-08-15] MEDS: SODIUM FERR GLUC 62.5MG/5ML 125 MG in SODIUM CHL 0.9% 100 ML IV SCH (12:04)
[2023-08-15 16:00] VITALS: BP 121/57; PULSE 66; RESP 18; TEMP 100.1; O2SAT 94
[2023-08-15 20:00] VITALS: PULSE 68
[2023-08-15 22:00] VITALS: BP 147/65; PULSE 69; RESP 18; TEMP 98; O2SAT 99
[2023-08-15] MEDS ORDERED: PANTOPRAZOLE 40 MG/10 ML VIAL INJ IV SCH ×2 (22:00→23:00)
[2023-08-16] VITALS (14 sets, daily range): BP systolic 110–163; BP diastolic 49–77; PULSE 67–77; RESP 16–18; TEMP 97.9–99.8; O2SAT 94–100
[2023-08-16] MEDS ORDERED: PANTOPRAZOLE 40 MG/10 ML VIAL INJ IV ONE ×3 (02:07→21:37)
[2023-08-16] MEDS: PANTOPRAZOLE 40 MG/10 ML VIAL INJ IV SCH ×3 (02:14→21:50)
[2023-08-16] MEDS: InsuLIN REG 1unit/0.01ml Soln (100units/ml) SC SCH ×4 (07:00→21:53)
[2023-08-16] MEDS: ACCU-CHEK COMFORT CURVE STRIP VI SCH ×4 (07:48→21:53)
[2023-08-16] MEDS: SUCRALFATE 1 GM/10 ML ORAL SUSP PO SCH ×4 (07:48→21:50)
[2023-08-16] MEDS: LIDOCAINE 5% TOPICAL PATCH TOP SCH (09:50)
[2023-08-16 10:03] LABS: Basophils # (auto) 0.1 10 ^3/uL (0-0.2); Basophils % (auto) 0.5 % (0.0-2.0); Eosinophils # (auto) 0.1 10 ^3/uL (0-0.8); Eosinophils % (auto) 0.8 % (0.0-7.0); Hematocrit 33.2 % (36.0-46.0); Hemoglobin 10.2 g/dL (12.2-16.2); Lymphocytes # (auto) 0.9 10 ^3/uL (0.4-5.4); Lymphocytes % (auto) 6.4 % (10.0-50.0); Mean Corpuscular Hemoglobin 29.2 pg (28.0-32.0); Mean Corpuscular Hgb Conc. 30.6 g/dL (32.0-36.0); Mean Corpuscular Volume 95.4 fL (80.0-100.0); Monocytes % (auto) 7.4 % (0.0-12.0); Neutrophils # (auto) 11.2 10 ^3/uL (1.6-8.6); Neutrophils % (auto) 84.9 % (37.0-80.0); Nucleated Red Blood Cells % 0.2 %; Red Blood Cells 3.48 10^6/uL (4.0-5.20); Red Cell Distribution Width 19.1 % (11.8-14.3); White Blood Cell 13.2 10^3/uL (4.4-10.8)
[2023-08-16 10:14] LABS: INR 1.08 (0.9-1.15); Prothrombin Time 11.3 sec (9.3-11.8)
[2023-08-16 10:15] LABS: Alanine Aminotransferase 15 U/L (7-40); Albumin 2.4 g/dL (3.2-4.8); Alkaline Phosphatase 63 U/L (46-116); Anion Gap 7 (5-15); Aspartate Aminotransferase 15 U/L (13-40); BUN/Creatinine Ratio 16.9 (10.0-20.0); Bilirubin, Total 0.5 mg/dL (0.2-1.0); Blood Urea Nitrogen 11 mg/dL (9-23); Calcium 7.8 mg/dL (8.5-10.1); Carbon Dioxide 22 mmol/L (20-30); Chloride 110 mmol/L (98-107); Glucose 82 mg/dL (74-106); Potassium 3.1 mmol/L (3.5-5.1); Sodium 139 mmol/L (136-145)
[2023-08-16] MEDS: SODIUM FERR GLUC 62.5MG/5ML 125 MG in SODIUM CHL 0.9% 100 ML IV SCH (12:35)
[2023-08-16] MEDS ORDERED: POTASSIUM EFFERVESENT TAB 25 MEQ PO ONE (16:45)
[2023-08-16] MEDS: MORPHINE SULFATE INJ 2 MG/ml SYRG IV PRN (17:21)
[2023-08-16] MEDS ORDERED: POTASSIUM EFFERVESENT TAB 25 MEQ ONE (17:42)
[2023-08-16] MEDS ORDERED: HYDROcodone-ACET 5/325MG TAB PO PRN (19:00)
[2023-08-17] VITALS (7 sets, daily range): BP systolic 128–153; BP diastolic 51–67; PULSE 66–75; RESP 16–17; TEMP 97.6–99.3; O2SAT 94–97
[2023-08-17] MEDS: ACCU-CHEK COMFORT CURVE STRIP VI SCH ×4 (05:48→21:14)
[2023-08-17] MEDS: InsuLIN REG 1unit/0.01ml Soln (100units/ml) SC SCH ×4 (05:48→21:16)
[2023-08-17] MEDS: SUCRALFATE 1 GM/10 ML ORAL SUSP PO SCH ×4 (05:58→21:14)
[2023-08-17] MEDS: PANTOPRAZOLE 40 MG/10 ML VIAL INJ IV SCH ×2 (09:37→21:14)
[2023-08-17] MEDS: LIDOCAINE 5% TOPICAL PATCH TOP SCH (09:37)
[2023-08-18] VITALS (7 sets, daily range): BP systolic 135–164; BP diastolic 50–60; PULSE 63–74; RESP 16–19; TEMP 97.3–98.7; O2SAT 93–97
[2023-08-18] MEDS: ACCU-CHEK COMFORT CURVE STRIP VI SCH ×4 (05:48→21:14)
[2023-08-18] MEDS: InsuLIN REG 1unit/0.01ml Soln (100units/ml) SC SCH ×4 (05:48→21:15)
[2023-08-18] MEDS: MORPHINE SULFATE INJ 2 MG/ml SYRG IV PRN (05:55)
[2023-08-18] MEDS: SUCRALFATE 1 GM/10 ML ORAL SUSP PO SCH ×4 (05:55→21:15)
[2023-08-18] MEDS: PANTOPRAZOLE 40 MG/10 ML VIAL INJ IV SCH ×2 (09:16→21:15)
[2023-08-18] MEDS: LIDOCAINE 5% TOPICAL PATCH TOP SCH (09:17)
[2023-08-18] MEDS ORDERED: PANT40TA2 PO (14:43)
[2023-08-18] MEDS ORDERED: SUCR1SUS26 PO (14:43)
[2023-08-19 05:00] VITALS: BP 157/61; PULSE 70; RESP 18; TEMP 98; O2SAT 96
[2023-08-19] MEDS: InsuLIN REG 1unit/0.01ml Soln (100units/ml) SC SCH (06:00)
[2023-08-19] MEDS: SUCRALFATE 1 GM/10 ML ORAL SUSP PO SCH (06:00)
[2023-08-19] MEDS: ACCU-CHEK COMFORT CURVE STRIP VI SCH (06:00)
[2023-08-19 07:45] VITALS: PULSE 67
[2023-08-19] MEDS: PANTOPRAZOLE 40 MG/10 ML VIAL INJ IV SCH (08:53)
[2023-08-19] MEDS: LIDOCAINE 5% TOPICAL PATCH TOP SCH (08:54)
[2023-08-19 09:00] VITALS: BP 131/74; PULSE 69; RESP 16; TEMP 99.9; O2SAT 95
[2023-08-19 09:46] VITALS: BP 148/55; TEMP 37.7
== END 2023-08-19 11:10 | disposition home health service (06) | DRG 356 ==
LOC: EDUNIT# 22:07 → ER 22:07 → TELE 08-03 17:12 → ICU WEST 08-03 17:33 → ICU CENTRL 08-04 05:33 → DOU IN ICU 08-05 03:51 → TELE-CENTR 08-05 08:54 → ICU WEST 08-09 19:30 → DOU IN ICU 08-11 15:57 → TELE-CENTR 08-14 18:00
PROVIDERS: ADMIT Internal Medicine; ATTEND Internal Medicine
PROC: 0DB68ZX Excision of Stomach, Via Natural or Artificial Opening Endoscopic, Diagnostic (ICD-10-PCS; 2023-08-03)
PROC: 30233N1 Transfusion of Nonautologous Red Blood Cells into Peripheral Vein, Percutaneous Approach (ICD-10-PCS; principal; 2023-08-03 15:36)
PROC: 05HA33Z Insertion of Infusion Device into Left Brachial Vein, Percutaneous Approach (ICD-10-PCS; 2023-08-09)
PROC: B54NZZA Ultrasonography of Left Upper Extremity Veins, Guidance (ICD-10-PCS; 2023-08-09)
PROC: 04L23DZ Occlusion of Gastric Artery with Intraluminal Device, Percutaneous Approach (ICD-10-PCS; 2023-08-11)
PROC: B41F1ZZ Fluoroscopy of Right Lower Extremity Arteries using Low Osmolar Contrast (ICD-10-PCS; 2023-08-11)
PROC: 30233K1 Transfusion of Nonautologous Frozen Plasma into Peripheral Vein, Percutaneous Approach (ICD-10-PCS; 2023-08-16)
DX: K25.0 Acute gastric ulcer with hemorrhage (principal); R57.8 Other shock; E87.20 Acidosis, unspecified; D62 Acute posthemorrhagic anemia; K56.41 Fecal impaction; B95.1 Streptococcus, group B, as the cause of diseases classified elsewhere; D63.8 Anemia in other chronic diseases classified elsewhere; I11.0 Hypertensive heart disease with heart failure; M17.11 Unilateral primary osteoarthritis, right knee; J43.9 Emphysema, unspecified; F02.80 Dementia in other diseases classified elsewhere, unspecified severity, without behavioral disturbance, psychotic disturbance, mood disturbance, and anxiety; G30.9 Alzheimer's disease, unspecified; H91.90 Unspecified hearing loss, unspecified ear; I50.9 Heart failure, unspecified
CPT/HCPCS: 36415; 37243; 71045; 74177; 74246; 75625; 75736; 76942; 80048; 80053; 80069; 82270; 82553; 82607; 82728; 82746; 82962; 83540; 83550; 83605; 83615; 83735; 83880; 84100; 84484; 85007; 85014; 85018; 85025; 85027; 85045; 85384; 85610; 85730; 86850; 86900; 86901; 86920; 87040; 87077; 87081; 87086; 87088; 87186; 92610; 93005; 93970; 96361; 96365; 96366; 96367; 96368; 96375; 97110; 97116; 97163; 99152; 99153; C1894; C9113; G0378; J0696; J1815; J2001; J2250; J2405; J2543; P9047; Q9967

== ENCOUNTER 2023-11-13 14:17 | Inpatient (IN) | payer OTHER, MEDICAID ==
[~2023-11-13] VITALS: Ht 154.9 cm; Wt 56.6 kg
[~2023-11-13 14:17] MED LIST changes: -ASPI1TAB20 PO; -DICL1GEL72 EX; -FLUC200T50 PO; -HYDR-4902 PO; -HYDR25TA5 PO; -LEVO500T31 PO; -MELO-335 PO; +PANT40TA2 PO; +SUCR1SUS26 PO
[2023-11-13 14:53] VITALS: PULSE 72; RESP 15; O2SAT 97
[2023-11-13 16:08] LABS: Basophils # (auto) 0.1 10 ^3/uL (0-0.2); Basophils % (auto) 0.8 % (0.0-2.0); Eosinophils # (auto) 0.1 10 ^3/uL (0-0.8); Eosinophils % (auto) 1.2 % (0.0-7.0); Hematocrit 34.5 % (36.0-46.0); Hemoglobin 11.3 g/dL (12.2-16.2); Lymphocytes % (auto) 29.1 % (10.0-50.0); Mean Corpuscular Hemoglobin 28.6 pg (28.0-32.0); Mean Corpuscular Hgb Conc. 32.8 g/dL (32.0-36.0); Mean Corpuscular Volume 87.1 fL (80.0-100.0); Monocytes # (auto) 0.4 10 ^3/uL (0-1.3); Monocytes % (auto) 6.5 % (0.0-12.0); Neutrophils # (auto) 4.2 10 ^3/uL (1.6-8.6); Neutrophils % (auto) 62.4 % (37.0-80.0); Nucleated Red Blood Cells % 0.1 %; Red Blood Cells 3.96 10^6/uL (4.0-5.20); Red Cell Distribution Width 16.1 % (11.8-14.3); White Blood Cell 6.8 10^3/uL (4.4-10.8)
[2023-11-13 16:33] LABS: Albumin 2.5 g/dL (3.2-4.8); Alkaline Phosphatase 68 U/L (46-116); Anion Gap 3 (5-15); Aspartate Aminotransferase 16 U/L (13-40); BUN/Creatinine Ratio 22.8 (10.0-20.0); Blood Urea Nitrogen 26 mg/dL (9-23); Calcium 8.3 mg/dL (8.5-10.1); Carbon Dioxide 33 mmol/L (20-30); Chloride 104 mmol/L (98-107); Glucose 75 mg/dL (74-106); Potassium 3.8 mmol/L (3.5-5.1); Sodium 140 mmol/L (136-145)
[2023-11-13 16:34] LABS: Bilirubin, Total 0.2 mg/dL (0.2-1.0)
[2023-11-13 16:39] LABS: Alanine Aminotransferase < 9 U/L (7-40)
[2023-11-13 17:27] VITALS: BP 130/79; PULSE 73; RESP 18; O2SAT 97
[2023-11-13] MEDS ORDERED: ONDANSETRON HCL 4 MG/2 ML VIAL IV PRN (17:30)
[2023-11-13] MEDS ORDERED: MORPHINE SULFATE INJ 2 MG/ml SYRG IV PRN ×2 (17:30)
[2023-11-13] MEDS ORDERED: ALBUTEROL SULF 2.5 MG/0.5ML(0.5%) NEB SOLN NEB PRN (17:30)
[2023-11-13] MEDS ORDERED: NITROGLYCERIN 0.4 MG SL TAB SL PRN (17:30)
[2023-11-13 19:30] VITALS: PULSE 71; RESP 14; O2SAT 98
[2023-11-13 22:57] VITALS: PULSE 80; RESP 18; O2SAT 100
[2023-11-13 23:55] VITALS: BP 160/80; PULSE 70; RESP 17; TEMP 98.2; O2SAT 99
[2023-11-14] VITALS (9 sets, daily range): BP systolic 107–168; BP diastolic 60–99; PULSE 64–93; RESP 16–20; TEMP 36.3; O2SAT 94–99
[2023-11-14] MEDS: hydrALAZINE HCL 20 MG/ML VL IV PRN (02:02)
[2023-11-14] MEDS: ENOXAPARIN SOD 40 MG/0.4 ML SYRINGE SC SCH (11:17)
== END 2023-11-14 20:44 | disposition home health service (06) | DRG 189 ==
LOC: ER 14:17 → EDBD 14:17 → OVERFLOW 17:22 → EAST 22:38
PROVIDERS: ADMIT Internal Medicine; ATTEND Internal Medicine
DX: J96.01 Acute respiratory failure with hypoxia (principal); L89.154 Pressure ulcer of sacral region, stage 4; F03.90 Unspecified dementia, unspecified severity, without behavioral disturbance, psychotic disturbance, mood disturbance, and anxiety; Z79.899 Other long term (current) drug therapy; Z79.1 Long term (current) use of non-steroidal anti-inflammatories (NSAID)
CPT/HCPCS: 36415; 71045; 80053; 85025; 87081; 93005; 97163; G0378

== ENCOUNTER 2023-12-10 15:11 | Inpatient (IN) | payer OTHER, MEDICAID ==
[~2023-12-10] VITALS: Ht 160 cm; Wt 73.2 kg
[2023-12-10 17:05] VITALS: PULSE 62; RESP 13; O2SAT 99
[2023-12-10 17:08] LABS: Basophils # (auto) 0.1 10 ^3/uL (0-0.2); Basophils % (auto) 1.2 % (0.0-2.0); Eosinophils # (auto) 0.2 10 ^3/uL (0-0.8); Eosinophils % (auto) 2.3 % (0.0-7.0); Hematocrit 32.6 % (36.0-46.0); Hemoglobin 10.6 g/dL (12.2-16.2); Lymphocytes # (auto) 2.1 10 ^3/uL (0.4-5.4); Lymphocytes % (auto) 28.8 % (10.0-50.0); Mean Corpuscular Hemoglobin 28.2 pg (28.0-32.0); Mean Corpuscular Hgb Conc. 32.6 g/dL (32.0-36.0); Mean Corpuscular Volume 86.7 fL (80.0-100.0); Monocytes # (auto) 0.6 10 ^3/uL (0-1.3); Monocytes % (auto) 8.3 % (0.0-12.0); Neutrophils # (auto) 4.4 10 ^3/uL (1.6-8.6); Neutrophils % (auto) 59.4 % (37.0-80.0); Red Blood Cells 3.76 10^6/uL (4.0-5.20); Red Cell Distribution Width 16.5 % (11.8-14.3); White Blood Cell 7.3 10^3/uL (4.4-10.8)
[2023-12-10 17:28] LABS: Albumin 2.5 g/dL (3.2-4.8); Alkaline Phosphatase 67 U/L (46-116); Anion Gap 4 (5-15); Aspartate Aminotransferase 14 U/L (13-40); BUN/Creatinine Ratio 45.9 (10.0-20.0); Bilirubin, Total 0.2 mg/dL (0.2-1.0); Blood Urea Nitrogen 51 mg/dL (9-23); Calcium 8.6 mg/dL (8.7-10.4); Carbon Dioxide 29 mmol/L (20-30); Chloride 108 mmol/L (98-107); Glucose 89 mg/dL (74-106); Magnesium 1.9 mg/dL (1.6-2.6); Potassium 4.2 mmol/L (3.5-5.1); Sodium 141 mmol/L (136-145); Total Protein 5.7 g/dL (5.7-8.2)
[2023-12-10 17:30] LABS: Alanine Aminotransferase < 9 U/L (7-40)
[2023-12-10] MEDS: FUROSEMIDE 40 MG/4 ML VIAL IV ONE (17:31)
[2023-12-10 18:28] LABS: Urine Bacteria FEW /hpf (None Seen); Urine Blood 3+ /uL (Negative); Urine Budding Yeast MANY /hpf (None Seen); Urine Clarity Turbid (Clear); Urine Color Light-Yellow (Yellow); Urine Hyaline Cast MOD /lpf (0 - 2); Urine Mucus FEW (None Seen); Urine Protein, UAD 1+ (Negative); Urine Specific Gravity 1.011 (1.001-1.035); Urine Urobilinogen Normal (Negative); Urine WBC 10 /hpf (0 - 5)
[2023-12-10] MEDS: levoFLOXacin 750MG 150 ML IV ONE (18:44)
[2023-12-10 19:20] VITALS: PULSE 58; RESP 12; O2SAT 100
[2023-12-10] MEDS: cloNIDine HCL 0.1 MG TAB PO ONE (21:07)
[2023-12-11] VITALS (7 sets, daily range): BP systolic 129–164; BP diastolic 52–93; PULSE 51–64; RESP 14–19; TEMP 96.8–98.1; O2SAT 99–100
[2023-12-11] MEDS ORDERED: DOCUSATE SOD 100 MG CAP PO PRN (00:45)
[2023-12-11] MEDS ORDERED: NITROGLYCERIN 0.4 MG SL TAB SL PRN (00:45)
[2023-12-11] MEDS ORDERED: ONDANSETRON HCL 4 MG/2 ML VIAL IV PRN (00:45)
[2023-12-11] MEDS ORDERED: MORPHINE SULFATE INJ 2 MG/ml SYRG IV PRN (00:45)
[2023-12-11] MEDS: ATROPINE SULF 1 MG/10ml SYR IV PRN (03:48)
[2023-12-11] MEDS ORDERED: DEXTROSE (50%) 50ML SYRG IV PRN (06:45)
[2023-12-11] MEDS: InsuLIN REG 1unit/0.01ml Soln (100units/ml) SC SCH (07:00)
[2023-12-11] MEDS: ACCU-CHEK COMFORT CURVE STRIP VI SCH (07:00)
[2023-12-11 10:12] LABS: Chloride 109 mmol/L (98-107); Potassium 4.3 mmol/L (3.5-5.1); Sodium 142 mmol/L (136-145)
[2023-12-11 10:13] LABS: Anion Gap 5 (5-15); Carbon Dioxide 28 mmol/L (20-30)
[2023-12-11 10:18] LABS: BUN/Creatinine Ratio 35.5 (10.0-20.0); Glucose 92 mg/dL (74-106)
[2023-12-11 10:20] LABS: Basophils # (auto) 0.1 10 ^3/uL (0-0.2); Basophils % (auto) 1.4 % (0.0-2.0); Eosinophils # (auto) 0.2 10 ^3/uL (0-0.8); Eosinophils % (auto) 3.4 % (0.0-7.0); Hematocrit 30.7 % (36.0-46.0); Hemoglobin 10.1 g/dL (12.2-16.2); Lymphocytes # (auto) 1.8 10 ^3/uL (0.4-5.4); Lymphocytes % (auto) 30.1 % (10.0-50.0); Mean Corpuscular Hemoglobin 28.7 pg (28.0-32.0); Mean Corpuscular Volume 86.8 fL (80.0-100.0); Monocytes # (auto) 0.6 10 ^3/uL (0-1.3); Monocytes % (auto) 9.1 % (0.0-12.0); Neutrophils # (auto) 3.4 10 ^3/uL (1.6-8.6); Nucleated Red Blood Cells % 0.3 %; Red Blood Cells 3.53 10^6/uL (4.0-5.20); Red Cell Distribution Width 16.8 % (11.8-14.3); White Blood Cell 6.1 10^3/uL (4.4-10.8)
[2023-12-11 10:24] LABS: Blood Urea Nitrogen 39 mg/dL (9-23)
[2023-12-11] MEDS ORDERED: GABA-1308 PO (11:59)
[2023-12-11] MEDS ORDERED: LACT10SO3 PO (11:59)
[2023-12-11] MEDS ORDERED: CAR25T PO (11:59)
[2023-12-11] MEDS ORDERED: DOCU-94 PO (11:59)
[2023-12-11] MEDS ORDERED: FOLI-119 PO (11:59)
[2023-12-11] MEDS ORDERED: MONT-8 PO (11:59)
[2023-12-11] MEDS ORDERED: SIMV40TA18 PO (11:59)
[2023-12-11] MEDS ORDERED: MIRT1TAB38 PO (11:59)
[2023-12-11] MEDS ORDERED: FURO20TA3 PO (11:59)
[2023-12-11] MEDS ORDERED: QUET25TA37 PO (11:59)
[2023-12-11] MEDS: ENOXAPARIN SOD 40 MG/0.4 ML SYRINGE SC SCH (12:14)
[2023-12-11] MEDS: FUROSEMIDE 20 MG/2 ML VIAL IV SCH (12:14)
[2023-12-11] MEDS: ACETAMINOPHEN 325 MG TAB PO PRN (12:14)
[2023-12-11] MEDS: cefTRIAXone 1GM/50ML D5W 50 ML IV SCH (21:48)
[2023-12-11] MEDS: MUPIROCIN 2% OINT 15gm or 22gm FOR MRSA NARES EACHNOSTRI SCH (22:00)
[2023-12-12] VITALS (8 sets, daily range): BP systolic 135–153; BP diastolic 56–85; PULSE 61–76; RESP 16–18; TEMP 97.5–98.7; O2SAT 95–100
[2023-12-12] MEDS: AZITHROMYCIN 500MG/ 250ML 250 ML IV SCH (01:55)
[2023-12-12 06:04] LABS: Basophils # (auto) 0.1 10 ^3/uL (0-0.2); Eosinophils # (auto) 0.2 10 ^3/uL (0-0.8); Eosinophils % (auto) 2.5 % (0.0-7.0); Hematocrit 27.7 % (36.0-46.0); Hemoglobin 9.3 g/dL (12.2-16.2); Lymphocytes # (auto) 1.7 10 ^3/uL (0.4-5.4); Lymphocytes % (auto) 24.9 % (10.0-50.0); Mean Corpuscular Hemoglobin 28.8 pg (28.0-32.0); Mean Corpuscular Hgb Conc. 33.4 g/dL (32.0-36.0); Mean Corpuscular Volume 86.2 fL (80.0-100.0); Monocytes # (auto) 0.5 10 ^3/uL (0-1.3); Monocytes % (auto) 7.8 % (0.0-12.0); Neutrophils # (auto) 4.3 10 ^3/uL (1.6-8.6); Neutrophils % (auto) 63.8 % (37.0-80.0); Nucleated Red Blood Cells % 0.1 %; Red Blood Cells 3.21 10^6/uL (4.0-5.20); White Blood Cell 6.7 10^3/uL (4.4-10.8)
[2023-12-12 06:13] LABS: Chloride 108 mmol/L (98-107); Potassium 4.2 mmol/L (3.5-5.1); Sodium 140 mmol/L (136-145)
[2023-12-12 06:14] LABS: Anion Gap 4 (5-15); Carbon Dioxide 28 mmol/L (20-30)
[2023-12-12 06:19] LABS: BUN/Creatinine Ratio 42.1 (10.0-20.0); Blood Urea Nitrogen 48 mg/dL (9-23); Glucose 89 mg/dL (74-106)
[2023-12-12] MEDS ORDERED: CARB10TA21 PO (10:15)
[2023-12-12] MEDS ORDERED: ENAL1TAB47 PO (10:15)
[2023-12-12] MEDS ORDERED: MIRT1TAB14 PO (10:15)
[2023-12-12] MEDS ORDERED: ACET500T58 PO (10:16)
[2023-12-12] MEDS ORDERED: POTA-220 PO (10:18)
[2023-12-12] MEDS ORDERED: HYDROcodone-ACET 5/325MG TAB PO PRN (16:00)
[2023-12-12] MEDS: QUEtiapine FUMARATE 25 MG TAB PO SCH (21:27)
[2023-12-12] MEDS: GABAPENTIN 100 MG CAP PO SCH (21:27)
[2023-12-12] MEDS: MIRTAZAPINE 30 MG TAB PO SCH (21:28)
[2023-12-13] VITALS (11 sets, daily range): BP systolic 112–185; BP diastolic 44–77; PULSE 58–81; RESP 14–18; TEMP 97.7–98.4; O2SAT 95–100
[2023-12-13] MEDS: hydrALAZINE HCL 20 MG/ML VL IV PRN (01:06)
[2023-12-13 06:58] LABS: Basophils # (auto) 0 10 ^3/uL (0-0.2); Basophils % (auto) 0.6 % (0.0-2.0); Eosinophils # (auto) 0.1 10 ^3/uL (0-0.8); Eosinophils % (auto) 0.7 % (0.0-7.0); Hematocrit 29.1 % (36.0-46.0); Hemoglobin 9.7 g/dL (12.2-16.2); Lymphocytes # (auto) 1.4 10 ^3/uL (0.4-5.4); Lymphocytes % (auto) 17.1 % (10.0-50.0); Mean Corpuscular Hemoglobin 29.3 pg (28.0-32.0); Mean Corpuscular Hgb Conc. 33.3 g/dL (32.0-36.0); Mean Corpuscular Volume 87.7 fL (80.0-100.0); Monocytes # (auto) 0.6 10 ^3/uL (0-1.3); Monocytes % (auto) 7.1 % (0.0-12.0); Neutrophils # (auto) 5.9 10 ^3/uL (1.6-8.6); Neutrophils % (auto) 74.5 % (37.0-80.0); Red Blood Cells 3.32 10^6/uL (4.0-5.20); Red Cell Distribution Width 16.3 % (11.8-14.3)
[2023-12-13 07:15] LABS: Anion Gap 9 (5-15); Carbon Dioxide 24 mmol/L (20-30); Chloride 107 mmol/L (98-107); Potassium 3.7 mmol/L (3.5-5.1); Sodium 140 mmol/L (136-145)
[2023-12-13 07:16] LABS: Calcium 8.3 mg/dL (8.5-10.1)
[2023-12-13 07:21] LABS: BUN/Creatinine Ratio 33.3 (10.0-20.0); Blood Urea Nitrogen 40 mg/dL (9-23); Glucose 88 mg/dL (74-106)
[2023-12-13] MEDS ORDERED: ALBUTEROL SULF 2.5 MG/0.5ML(0.5%) NEB SOLN NEB PRN (15:30)
[2023-12-13] MEDS ORDERED: IPRATROPIUM BROM 0.5 MG/2.5ML INH SOL NEB PRN (15:30)
[2023-12-14] VITALS (10 sets, daily range): BP systolic 114–136; BP diastolic 43–64; PULSE 53–87; RESP 16–18; TEMP 96.8–98.4; O2SAT 93–100
[2023-12-14 05:47] LABS: Anion Gap 6 (5-15); Calcium 8.1 mg/dL (8.7-10.4); Carbon Dioxide 28 mmol/L (20-30); Chloride 104 mmol/L (98-107); Sodium 138 mmol/L (136-145)
[2023-12-14 05:48] LABS: Eosinophils # (auto) 0.2 10 ^3/uL (0-0.8); Lymphocytes # (auto) 1.5 10 ^3/uL (0.4-5.4); Neutrophils # (auto) 3.7 10 ^3/uL (1.6-8.6); Nucleated Red Blood Cells % 0.1 %
[2023-12-14 05:51] LABS: Basophils # (auto) 0.1 10 ^3/uL (0-0.2); Basophils % (auto) 1.1 % (0.0-2.0); Eosinophils % (auto) 2.6 % (0.0-7.0); Hematocrit 23.6 % (36.0-46.0); Lymphocytes % (auto) 25.1 % (10.0-50.0); Mean Corpuscular Hemoglobin 28.8 pg (28.0-32.0); Mean Corpuscular Hgb Conc. 33.7 g/dL (32.0-36.0); Mean Corpuscular Volume 85.5 fL (80.0-100.0); Monocytes # (auto) 0.5 10 ^3/uL (0-1.3); Monocytes % (auto) 9.1 % (0.0-12.0); Neutrophils % (auto) 62.1 % (37.0-80.0); Red Blood Cells 2.77 10^6/uL (4.0-5.20); Red Cell Distribution Width 15.9 % (11.8-14.3)
[2023-12-14 05:53] LABS: BUN/Creatinine Ratio 36.6 (10.0-20.0); Blood Urea Nitrogen 49 mg/dL (9-23); Glucose 88 mg/dL (74-106)
[2023-12-14] MEDS ORDERED: VANCOMYCIN PER PHARMACY 0 MG IV SCH (17:30)
[2023-12-14] MEDS: VANCOMYCIN 1GM/200ML 200 ML IV ONE (20:32)
[2023-12-15] VITALS (8 sets, daily range): BP systolic 137–142; BP diastolic 53–64; PULSE 60–75; RESP 16–20; TEMP 98.2–98.4; O2SAT 96–100
[2023-12-15 06:40] LABS: Anion Gap 4 (5-15); Carbon Dioxide 29 mmol/L (20-30); Chloride 104 mmol/L (98-107); Potassium 4.2 mmol/L (3.5-5.1); Sodium 137 mmol/L (136-145)
[2023-12-15 06:41] LABS: Calcium 8.3 mg/dL (8.7-10.4)
[2023-12-15 06:46] LABS: BUN/Creatinine Ratio 32.5 (10.0-20.0); Blood Urea Nitrogen 49 mg/dL (9-23); Glucose 88 mg/dL (74-106)
[2023-12-15 07:07] LABS: Basophils # (auto) 0.1 10 ^3/uL (0-0.2); Eosinophils # (auto) 0.2 10 ^3/uL (0-0.8); Hematocrit 25.8 % (36.0-46.0); Hemoglobin 8.6 g/dL (12.2-16.2); Lymphocytes # (auto) 1.4 10 ^3/uL (0.4-5.4); Lymphocytes % (auto) 22.4 % (10.0-50.0); Mean Corpuscular Hemoglobin 28.7 pg (28.0-32.0); Mean Corpuscular Hgb Conc. 33.1 g/dL (32.0-36.0); Mean Corpuscular Volume 86.6 fL (80.0-100.0); Monocytes # (auto) 0.6 10 ^3/uL (0-1.3); Monocytes % (auto) 9.3 % (0.0-12.0); Neutrophils # (auto) 4.1 10 ^3/uL (1.6-8.6); Neutrophils % (auto) 64.3 % (37.0-80.0); Nucleated Red Blood Cells % 0.1 %; Red Blood Cells 2.98 10^6/uL (4.0-5.20); Red Cell Distribution Width 16.6 % (11.8-14.3); White Blood Cell 6.4 10^3/uL (4.4-10.8)
[2023-12-15 11:55] LABS: Protein, Urine 67.1 mg/dL (0.0-11.9)
[2023-12-15 11:57] LABS: Creatinine, Urine 33.44 mg/dL (30.0-125.0); Urine Protein/Creatinine Ratio 2.01
[2023-12-15] MEDS: VANCOMYCIN 750mg/150ml 150 ML IV ONE (13:21)
[2023-12-15] MEDS: AZITHROMYCIN 250 MG TAB PO SCH (20:26)
[2023-12-16] VITALS (9 sets, daily range): BP systolic 126–166; BP diastolic 54–78; PULSE 63–73; RESP 17–20; TEMP 97.8–98.3; O2SAT 90–100
[2023-12-16 05:58] LABS: Basophils # (auto) 0.1 10 ^3/uL (0-0.2); Eosinophils # (auto) 0.2 10 ^3/uL (0-0.8); Eosinophils % (auto) 2.6 % (0.0-7.0); Hematocrit 27.8 % (36.0-46.0); Hemoglobin 9.2 g/dL (12.2-16.2); Lymphocytes # (auto) 1.3 10 ^3/uL (0.4-5.4); Lymphocytes % (auto) 21.1 % (10.0-50.0); Mean Corpuscular Hemoglobin 28.6 pg (28.0-32.0); Mean Corpuscular Hgb Conc. 33.2 g/dL (32.0-36.0); Mean Corpuscular Volume 86.2 fL (80.0-100.0); Monocytes # (auto) 0.6 10 ^3/uL (0-1.3); Monocytes % (auto) 8.9 % (0.0-12.0); Neutrophils # (auto) 4.1 10 ^3/uL (1.6-8.6); Neutrophils % (auto) 66.4 % (37.0-80.0); Red Blood Cells 3.23 10^6/uL (4.0-5.20); Red Cell Distribution Width 15.8 % (11.8-14.3); White Blood Cell 6.2 10^3/uL (4.4-10.8)
[2023-12-16 06:15] LABS: Albumin 2.5 g/dL (3.2-4.8); Alkaline Phosphatase 51 U/L (46-116); Anion Gap 7 (5-15); Aspartate Aminotransferase 15 U/L (13-40); BUN/Creatinine Ratio 39.7 (10.0-20.0); Blood Urea Nitrogen 54 mg/dL (9-23); Calcium 8.4 mg/dL (8.5-10.1); Carbon Dioxide 26 mmol/L (20-30); Chloride 104 mmol/L (98-107); Glucose 93 mg/dL (74-106); Potassium 4.2 mmol/L (3.5-5.1); Sodium 137 mmol/L (136-145)
[2023-12-16 06:16] LABS: Bilirubin, Total 0.3 mg/dL (0.2-1.0); Total Protein 5.6 g/dL (5.7-8.2)
[2023-12-16 06:19] LABS: Alanine Aminotransferase < 9 U/L (7-40)
[2023-12-16] MEDS: VANCOMYCIN 750mg/150ml 150 ML IV SCH (06:27)
== END 2023-12-16 15:00 | disposition home health service (06) | DRG 593 ==
LOC: EDBD 15:11 → ER 15:11 → TELE 12-11 00:48 → TELE-WESTW 12-11 04:16
PROVIDERS: ADMIT Nurse Practitioner Family; ATTEND Nurse Practitioner Family
DX: L89.153 Pressure ulcer of sacral region, stage 3 (principal); I13.0 Hypertensive heart and chronic kidney disease with heart failure and stage 1 through stage 4 chronic kidney disease, or unspecified chronic kidney disease; N17.9 Acute kidney failure, unspecified; N30.01 Acute cystitis with hematuria; E11.9 Type 2 diabetes mellitus without complications; I50.9 Heart failure, unspecified; E77.8 Other disorders of glycoprotein metabolism; D63.1 Anemia in chronic kidney disease; E11.22 Type 2 diabetes mellitus with diabetic chronic kidney disease; E88.09 Other disorders of plasma-protein metabolism, not elsewhere classified; F02.80 Dementia in other diseases classified elsewhere, unspecified severity, without behavioral disturbance, psychotic disturbance, mood disturbance, and anxiety; G30.9 Alzheimer's disease, unspecified; K21.9 Gastro-esophageal reflux disease without esophagitis; N18.9 Chronic kidney disease, unspecified; G20.A1 Parkinson's disease without dyskinesia, without mention of fluctuations; L89.211 Pressure ulcer of right hip, stage 1; Z79.899 Other long term (current) drug therapy; Z79.1 Long term (current) use of non-steroidal anti-inflammatories (NSAID); Z74.01 Bed confinement status
CPT/HCPCS: 36415; 36600; 71045; 76775; 80048; 80053; 81001; 82306; 82570; 82805; 82962; 83605; 83735; 83880; 83970; 84100; 84156; 84300; 84484; 85025; 87040; 87077; 87081; 87186; 87205; 93005; 93306; G0378; J1956

== ENCOUNTER 2024-10-30 21:56 | Emergency (ER) | payer OTHER, MEDICAID ==
[~2024-10-30] VITALS: Ht 165.1 cm; Wt 55.0 kg
[~2024-10-30 21:56] MED LIST changes: -ACET-1881 PO; +ACET500T58 PO; -CARB-112 PO; +CARB10TA21 PO; -DEXT1SYP9 PO; -ENAL1TAB42 PO; +ENAL1TAB47 PO; +FOLI-119 PO; +LACT10SO3 PO; -MIRT-93 PO; +MIRT1TAB14 PO; +POTA-220 PO
--- NOTE | 2024-10-30 22:25 | ED.PDOC ---
History of Present Illness HPI Comments 84-year-old female came to the emergency room via EMS for high blood pressure. Per EMS, patient was picked up at home with an initial complaint of high blood pressure. Blood pressure on scene was 224/98 mmHg. Patient has no subjective complaints. Patient is bed-bound in has history of hypertension, CHF and dementia. Chief Complaint: High blood pressure Time Seen by MD: 22:25 Primary Care Provider: ROSALINDA Reviewed Notes: Nurses Notes Allergies: Coded Allergies: NO KNOWN ALLERGIES (Unverified , 06/21/20) Home Meds Active Scripts Sucralfate (CARAFATE SUSP) 1 Gm/10 Ml Ss, 10 ML PO QID, #1200 ML 3 Refills Prov:JENNA ESPARZA MD 08/18/23 Pantoprazole Sodium Sesquihydr (Protonix) 40 Mg Tab, 40 MG PO BIDAC, #60 TAB Prov:JENNA ESPARZA MD 08/18/23 Ferrous Sulfate (Iron) 325 Mg Tab, 325 MG PO DAILY for 30 Days, #30 TAB Prov:ROBINSON BURKETT MD 09/24/21 Reported Medications Potassium Chloride (Klor-Con M20) 20 Meq Tab, 20 MEQ PO BID, TAB 12/12/23 Acetaminophen (Acetaminophen) 500 Mg Tab, 500 MG PO Q6HPRN PRN for MILD PAIN (1- 3 PAIN SCALE), TAB 12/12/23 Mirtazapine (Mirtazapine Oral Disintegrating Tablet) 15 Mg Tab, 15 MG PO QPM 12/12/23 Enalapril Maleate (Enalapril Maleate) 10 Mg Tab, 10 MG PO DAILY, TAB 12/12/23 Carbidopa-Levodopa (Carbidopa/Levodopa Odt 10-100 mg) 1 Tab Tab, 1 TAB PO TID 12/12/23 Lactulose (Lactulose) 10 Gm/15 Ml Isidra, 20 GM PO DAILY, ML 12/11/23 Docusate Sodium (Colace) 100 Mg Cap, 1 CAP PO BID, #30 CAP 12/11/23 Folic Acid (Folic Acid) 1 Mg Tab, 1 MG PO for 30 Days, MG 12/11/23 Furosemide (Furosemide) 40 Mg Tab, 40 MG PO BIDD, MG 05/12/22 Quetiapine Fumerate (Seroquel) 25 Mg Tab, 50 MG PO HS, TAB 09/09/21 Famotidine (Famotidine) 20 Mg Tab, 20 MG PO DAILY for 30 Days, MG 09/09/21 Simvastatin (Simvastatin) 40 Mg Tab, 40 MG PO DAILY for 30 Days 09/09/21 Citalopram Hydrobromide (Citalopram Hydrobromide) 20 Mg Tab, 20 MG PO DAILY for 30 Days, MG 09/09/21 Senna (Senna Lax) 8.6 Mg Tab, 8.6 MG PO QHSP, MG 09/09/21 Montelukast Sodium (MONTELUKAST SODIUM) 10 Mg Tab, 1 TAB PO DAILY, #30 TAB 5 Refills 09/09/21 Gabapentin (Gabapentin) 100 Mg Cap, 100 MG PO TID 09/09/21 Information Source: Emergency Med Personnel Mode of Arrival: EMS Severity: Moderate Timing: Hours Duration: Intermittent Past Medical History PAST MEDICAL HISTORY: Arthritis, CHF, Dementia, High Lipids, HTN Past Medical History (Other): Bed-bound Surgical History: Denies all surgeries HOME PARAPROFESSIONAL History: No Pertinent HOME PARAPROFESSIONAL History Family History Family History: Reviewed,noncontributory to illness Social History Smoker: Non-Smoker Alcohol: Denies ETOH Use Drugs: Denies Drug Use Lives In: Home Constitutional: denies: chills, diaphoresis, fatigue, fever, malaise, sweats, weakness, others EENTM: denies: blurred vision, double vision, ear bleeding, ear discharge, ear drainage, ear pain, ear ringing, eye pain, eye redness, hearing loss, mouth pain, mouth swelling, nasal discharge, nose bleeding, nose congestion, nose pain, photophobia, tearing, throat pain, throat swelling, voice changes, others Respiratory: denies: cough, hemoptysis, orthopnea, SOB at rest, shortness of breath, SOB with excertion, stridor, wheezing, others Cardiovascular: denies: chest pain, dizzy spells, diaphoresis, Dyspnea on exertion, edema, irregular heart beat, left arm pain, lightheadedness, palpitations, PND, syncope, others Gastrointestinal: denies: abdomen distended, abdominal pain, blood streaked bowels, constipated, diarrhea, dysphagia, difficulty swallowing, hematemesis, melena, nausea, poor appetite, poor fluid intake, rectal bleeding, rectal pain, vomiting, others Genitourinary: denies: abnormal vagina bleeding, burning, dyspareunia, dysuria, flank pain, frequency, hematuria, incontinence, pain, , vagina discharge, urgency, others Neurological: denies: dizziness, fainting, headache, left sided numbness, left sided weakness, numbness, paresthesia, pre-existing deficit, right sided numbness, right sided weakness, seizure, speech problems, tingling, tremors, weakness, others Musculoskeletal: reports: back pain; denies: gout, joint pain, joint swelling, muscle pain, muscle stiffness, neck pain, others Integumetry: denies: bruises, change in color, change in hair/nails, dryness, laceration, lesions, lumps, rash, wounds, others Allergic/Immunocompromised: denies: Difficulty Healing, Frequent Infections, Hives, Itching, others Hematologic/Lymphatic: denies: anemia, blood clots, easy bleeding, easy br uising, swollen glands, others Endocrine: denies: excessive hunger, excessive sweating, excessive thirst, excessive urination, flushing, intolerance to cold, intolerance to heat, unexplained weight gain, unexplained weight loss, others Psychiatric: denies: anxiety, bipolar disorder, depression, hopeless, panic disorder, schizophrenia, sleepless, suicidal, others Physical Exam General Appearance: No Apparent Distress, Normal HEENT: Normal ENT Inspection, Pharynx Normal, TMs Normal Neck: Full Range of Motion, Non-Tender, Normal, Normal Inspection Respiratory: Chest Non-Tender, Lungs Clear, No Accessory Muscle Use, No R espiratory Distress, Normal Breath Sounds Cardiovascular: No Edema, No JVD, No Murmur, No Gallop, Normal Peripheral Pulses, Regular Rate/Rhythm Breast Exam: Deferred Gastrointestinal: No Organomegaly, Non Tender, No Pulsatile Mass, Normal Bowel Sounds, Soft Genitalia: Deferred Pelvic: Deferred Rectal: Deferred Extremities: No calf tenderness, Normal capillary refill, Normal inspection, Normal range of motion, Non-tender, No pedal edema Musculoskeletal : Apperance: Normal Neurologic: Alert, electrical cad designer II-XII nml as Tested, No Motor Deficits, Normal Affect, Normal Mood, No Sensory Deficits Cerebellar Function: Normal Reflexes: Normal Skin: Dry, Normal Color, Warm Lymphatic: No Adenopathy Was a procedure done? Was a procedure done?: No Differential Dx Considerations may include: Anemia, electrolyte imbalance, UTI, pneumonia, hypertensive urgency X-Ray, Labs, Meds, VS Vital Signs Date Time Temp Pulse Resp B/P (MAP) Pulse Ox O2 Delivery O2 Flow Rate FiO2 10/31/24 00:00 65 20 204/97 (132) 97 10/30/24 22:27 98.3 68 15 171/90 (117) 99 98.3 10/30/24 22:27 68 15 99 Nasal Cannula* 4 36 10/30/24 22:18 97.8 72 18 224/98 (140) 98 10/30/24 22:03 73 Lab Test 10/30/24 23:45 10/30/24 22:40 Range/Units Troponin I High Sensitivity Pending 18 </=34 ng/L White Blood Count 8.8 4.4-10.8 10^3/uL Red Blood Count 3.40 L 4.0-5.20 10^6/uL Hemoglobin 10.2 L 12.2-16.2 g/dL Hematocrit 30.6 L 36.0-46.0 % Mean Corpuscular Volume 90.0 80.0-100.0 fL Mean Corpuscular Hemoglobin 29.9 28.0-32.0 pg Mean Corpuscular Hemoglobin Concent 33.2 32.0-36.0 g/dL Red Cell Distribution Width 15.0 H 11.8-14.3 % Platelet Count 366 140-450 10^3/uL Mean Platelet Volume 7.3 6.9-10.8 fL Neutrophils (%) (Auto) 71.7 37.0-80.0 % Lymphocytes (%) (Auto) 20.3 10.0-50.0 % Monocytes (%) (Auto) 6.1 0.0-12.0 % Eosinophils (%) (Auto) 1.3 0.0-7.0 % Basophils (%) (Auto) 0.6 0.0-2.0 % Neutrophils # (Auto) 6.3 1.6-8.6 10 ^3/uL Lymphocytes # (Auto) 1.8 0.4-5.4 10 ^3/uL Monocytes # (Auto) 0.5 0-1.3 10 ^3/uL Eosinophils # (Auto) 0.1 0-0.8 10 ^3/uL Basophils # (Auto) 0.1 0-0.2 10 ^3/uL Nucleated Red Blood Cells 0.1 % Sodium Level 144 136-145 mmol/L Potassium Level 3.8 3.5-5.1 mmol/L Chloride Level 107 98-107 mmol/L Carbon Dioxide Level 30 20-31 mmol/L Anion Gap 7 5-15 Blood Urea Nitrogen 22 9-23 mg/dL Creatinine 0.82 0.550-1.02 mg/dL Glomerular Filtration Rate Calc 70 >90 mL/min BUN/Creatinine Ratio 26.8 H 10.0-20.0 Serum Glucose 107 H 74-106 mg/dL Calcium Level 8.6 L 8.7-10.4 mg/dL CHEST RADIOGRAPH Indication: weakness Technique: Single frontal view of the chest was obtained COMPARISON: XY CHEST PORTABLE on DOS: 12/10/23, XY CHEST PORTABLE on DOS: 11/13/23, XY CHEST PORTABLE on DOS: 08/12/23, XY CHEST PORTABLE on DOS: 08/02/23, CXR1 on DOS: 05/11/22 FINDINGS: Lines and Tubes: None Lungs: Lung volumes are low. Bibasilar subsegmental atelectasis/consolidation greater on the left side which was also present on the prior chest x-ray from December 2023. There has been improvement in the aeration at the right lung base compared to the prior study. Pleura: No effusion. No pneumothorax. Cardiomediastinal contours: Unremarkable IMPRESSION: No acute/new abnormality identified. Low lung volumes. Bibasilar subsegmental atelectasis/consolidation greater on the left side which was also present on the prior chest x-ray from December 2023. There has been improvement in the aeration at the right lung base compared to the prior study. Time of 1ST Reevaluation: 22:17 Reevaluation 1ST: Unchanged Patient Education/Counseling: Diagnosis, Treatment Family Education/Counseling: No Family Present Departure 1 Departure Time of Disposition: 00:14 (Patient refusing all further treatments. Patient refusing CT scan patient refusing urine patient refusing medications. Patient would like to go home. Patient has no complaints. We will discharge patient home) Impression: Primary Impression: Hypertensive urgency Disposition: HOME / SELF CARE / HOMELESS Condition: Stable Additional Instructions: It is important to continue to take your regular medications. It is important to follow up with your regular doctor. 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 Electronically submitted by Ayaz Jaeger ([facility]). I personally scribed for YI REDMOND MD ([facility]) on 10/30/24 at 23:21. Electronically submitted by Ayaz Jaeger ([facility]). I personally scribed for YI REDMOND MD ([facility]) on 10/31/24 at 00:01. Electronically submitted by Ayaz Jaeger ([facility]). YI RDEMOND MD Oct 30, 2024 22:25
[2024-10-30 22:27] VITALS: PULSE 68; RESP 15; TEMP 98.3; O2SAT 99
--- NOTE | 2024-10-30 22:50 | DVH ---
CHEST RADIOGRAPH Indication: weakness Technique: Single frontal view of the chest was obtained COMPARISON: XY CHEST PORTABLE on DOS: 12/10/23, XY CHEST PORTABLE on DOS: 11/13/23, XY CHEST PORTABLE o n DOS: 08/12/23, XY CHEST PORTABLE on DOS: 08/02/23, CXR1 on DOS: 05/11/22 FINDINGS: Lines and Tubes: None Lungs: Lung volumes are low. Bibasilar subsegmental atelectasis/consolidation greater on the left deon e which was also present on the prior chest x-ray from December 2023. There has been improvement in the aeration at the right lung base compared to the prior study. Pleura: No effusion. No pneumothorax. Cardiomediastinal contours: Unremarkable IMPRESSION: No acute/new abnormality identified. Low lung volumes. Bibasilar subsegmental atelectasis/consolidation greater on the left side which was also present on the prior chest x-ray from December 2023. There has been improvement in the aeration at the right lung base compared to the prior study.
[2024-10-30 22:52] LABS: Basophils # (auto) 0.1 10 ^3/uL (0-0.2); Basophils % (auto) 0.6 % (0.0-2.0); Eosinophils # (auto) 0.1 10 ^3/uL (0-0.8); Eosinophils % (auto) 1.3 % (0.0-7.0); Hematocrit 30.6 % (36.0-46.0); Hemoglobin 10.2 g/dL (12.2-16.2); Lymphocytes # (auto) 1.8 10 ^3/uL (0.4-5.4); Lymphocytes % (auto) 20.3 % (10.0-50.0); Mean Corpuscular Hemoglobin 29.9 pg (28.0-32.0); Mean Corpuscular Hgb Conc. 33.2 g/dL (32.0-36.0); Monocytes # (auto) 0.5 10 ^3/uL (0-1.3); Monocytes % (auto) 6.1 % (0.0-12.0); Neutrophils # (auto) 6.3 10 ^3/uL (1.6-8.6); Neutrophils % (auto) 71.7 % (37.0-80.0); Nucleated Red Blood Cells % 0.1 %; Platelet Count (auto) 366 10^3/uL (140-450); White Blood Cell 8.8 10^3/uL (4.4-10.8)
[2024-10-30 23:03] LABS: Chloride 107 mmol/L (98-107); Potassium 3.8 mmol/L (3.5-5.1); Sodium 144 mmol/L (136-145)
[2024-10-30 23:04] LABS: Anion Gap 7 (5-15); Carbon Dioxide 30 mmol/L (20-31)
[2024-10-30 23:05] LABS: Calcium 8.6 mg/dL (8.7-10.4)
[2024-10-30 23:09] LABS: BUN/Creatinine Ratio 26.8 (10.0-20.0); Blood Urea Nitrogen 22 mg/dL (9-23)
[2024-10-30 23:10] LABS: Glucose 107 mg/dL (74-106)
[2024-10-31] MEDS: hydrALAZINE HCL 20 MG/ML VL IV ONE (00:22)
[2024-10-31] MEDS: ONDANSETRON HCL 4 MG/2 ML VIAL IV ONE (00:43)
[2024-10-31] MEDS: MORPHINE SULFATE 4 MG/ML SYR/VIAL IV ONE (00:44)
[2024-10-31 02:09] VITALS: BP 141/69; PULSE 71; RESP 18; O2SAT 97
--- NOTE | 2024-10-31 04:51 | ECG ---
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
== END 2024-10-31 02:12 | disposition home or self-care (01) ==
LOC: EDBD 21:56 → ER 21:56
DX: I16.0 Hypertensive urgency (principal); I11.0 Hypertensive heart disease with heart failure; I50.9 Heart failure, unspecified; F03.90 Unspecified dementia, unspecified severity, without behavioral disturbance, psychotic disturbance, mood disturbance, and anxiety; E78.5 Hyperlipidemia, unspecified; M19.90 Unspecified osteoarthritis, unspecified site; Z74.01 Bed confinement status; Z79.899 Other long term (current) drug therapy
CPT/HCPCS: 36415; 71045; 80048; 84484; 85025; 93005; 96374; 96375; 99285; J0360; J2270; J2405

== ENCOUNTER 2025-01-04 11:41 | Inpatient (IN) | payer OTHER, MEDICAID ==
[~2025-01-04] VITALS: Ht 162.6 cm; Wt 58.5 kg
--- NOTE | 2025-01-04 13:15 | DVH ---
CHEST RADIOGRAPH Indication: productive cough Technique: Single frontal view of the chest was obtained COMPARISON: XY CHEST PORTABLE on DOS: 10/30/24, XY CHEST PORTABLE on DOS: 12/10/23, XY CHEST PORTABLE on DOS: 11/13/23, XY CHEST PORTABLE on DOS: 08/12/23, XY CHEST PORTABLE on DOS: 08/02/23 FINDINGS: Lines and Tubes: None Lungs: Left lower lobe airspace disease. Pleura: No effusion. No pneumothorax. Cardiomediastinal contours: Unremarkable Bones: Unremarkable IMPRESSION: Left lower lobe airspace disease
[2025-01-04 13:18] LABS: Basophils # (auto) 0 10 ^3/uL (0-0.2); Basophils % (auto) 0.3 % (0.0-2.0); Eosinophils # (auto) 0.2 10 ^3/uL (0-0.8); Eosinophils % (auto) 1.4 % (0.0-7.0); Hematocrit 27.7 % (36.0-46.0); Hemoglobin 9.3 g/dL (12.2-16.2); Lymphocytes # (auto) 1.1 10 ^3/uL (0.4-5.4); Lymphocytes % (auto) 9.2 % (10.0-50.0); Mean Corpuscular Hemoglobin 30.2 pg (28.0-32.0); Mean Corpuscular Hgb Conc. 33.7 g/dL (32.0-36.0); Mean Corpuscular Volume 89.6 fL (80.0-100.0); Monocytes # (auto) 0.7 10 ^3/uL (0-1.3); Monocytes % (auto) 5.8 % (0.0-12.0); Neutrophils # (auto) 10.3 10 ^3/uL (1.6-8.6); Neutrophils % (auto) 83.3 % (37.0-80.0); Platelet Count (auto) 391 10^3/uL (140-450); Red Blood Cells 3.09 10^6/uL (4.0-5.20); Red Cell Distribution Width 13.7 % (11.8-14.3); White Blood Cell 12.4 10^3/uL (4.4-10.8)
--- NOTE | 2025-01-04 13:25 | ED.PDOC ---
History of Present Illness HPI Comments 84 y/o F is BIBA with daughter for c/o diarrhea, with associated dark-stools and abdominal pain, for the past 2 weeks and decrease oral intake for 1 week. States she contact with the patient's primary physician, who advised them to come to the ER for treatment of dehydration. Daughter states patient is able to tolerate liquids and has normal urine output. Patient's primary physician started her on Cipro yesterday for diarrhea. Patient also c/o sacral decubitus ulcer pain that daughter states she is already on home wound care for. Patient has an extensive past medical history, which includes, CHF, Alzheimer's dementia, DM II, HLD, HTN, UTI's, PNA, bacteremia, and home O2 use. Denies any nausea, vomiting, constipation, fever, or chills. Chief Complaint: Diarrhea Time Seen by MD: 12:30 Primary Care Provider: JUAN JOSE Reviewed Notes: Nurses Notes, Multicultural Manager Notes, Medications, Allergies Allergies: Coded Allergies: NO KNOWN ALLERGIES (Unverified , 06/21/20) Home Meds Active Scripts Sucralfate (CARAFATE SUSP) 1 Gm/10 Ml Ss, 10 ML PO QID, #1200 ML 3 Refills Prov:JENNA ESPARZA MD 08/18/23 Pantoprazole Sodium Sesquihydr (Protonix) 40 Mg Tab, 40 MG PO BIDAC, #60 TAB Prov:JENNA ESPARZA MD 08/18/23 Ferrous Sulfate (Iron) 325 Mg Tab, 325 MG PO DAILY for 30 Days, #30 TAB Prov:ROBINSON BURKETT MD 09/24/21 Reported Medications Potassium Chloride (Klor-Con M20) 20 Meq Tab, 20 MEQ PO BID, TAB 12/12/23 Acetaminophen (Acetaminophen) 500 Mg Tab, 500 MG PO Q6HPRN PRN for MILD PAIN (1- 3 PAIN SCALE), TAB 12/12/23 Mirtazapine (Mirtazapine Oral Disintegrating Tablet) 15 Mg Tab, 15 MG PO QPM 12/12/23 Enalapril Maleate (Enalapril Maleate) 10 Mg Tab, 10 MG PO DAILY, TAB 12/12/23 Carbidopa-Levodopa (Carbidopa/Levodopa Odt 10-100 mg) 1 Tab Tab, 1 TAB PO TID 4/12/24 Lactulose (Lactulose) 10 Gm/15 Ml Isidra, 20 GM PO DAILY, ML 12/11/23 Docusate Sodium (Colace) 100 Mg Cap, 1 CAP PO BID, #30 CAP 12/11/23 Folic Acid (Folic Acid) 1 Mg Tab, 1 MG PO for 30 Days, MG 12/11/23 Furosemide (Furosemide) 40 Mg Tab, 40 MG PO BIDD, MG 05/12/22 Quetiapine Fumerate (Seroquel) 25 Mg Tab, 50 MG PO HS, TAB 09/09/21 Famotidine (Famotidine) 20 Mg Tab, 20 MG PO DAILY for 30 Days, MG 09/09/21 Simvastatin (Simvastatin) 40 Mg Tab, 40 MG PO DAILY for 30 Days 09/09/21 Citalopram Hydrobromide (Citalopram Hydrobromide) 20 Mg Tab, 20 MG PO DAILY for 30 Days, MG 09/09/21 Senna (Senna Lax) 8.6 Mg Tab, 8.6 MG PO QHSP, MG 09/09/21 Montelukast Sodium (MONTELUKAST SODIUM) 10 Mg Tab, 1 TAB PO DAILY, #30 TAB 5 Re fills 09/09/21 Gabapentin (Gabapentin) 100 Mg Cap, 100 MG PO TID 09/09/21 Information Source: Patient, Relative (Child), Emergency Med Personnel Mode of Arrival: EMS Severity: Moderate Timing: Weeks Past Medical History PAST MEDICAL HISTORY: Anxiety, Arthritis, CHF, Dementia (Alzheimer's), Depression, DM (Type II), High Lipids, HTN, UTI'S Past Medical History (Other): chronic sacral decubitus ulcers - on wound care Gram-positive bacteremia PNA On home oxygen Atelectasis right lung Surgical History (Other): Ear surgery PRECISION CROP MANAGER History: No Pertinent PRECISION CROP MANAGER History Family History Family History: Reviewed,noncontributory to illness Social History Smoker: Non-Smoker Alcohol: Denies ETOH Use Drugs: Denies Drug Use Lives In: Home, Assisted Care All Other Systems: Reviewed and Negative (Comprehensive systems review obtained and negative except for what is stated in the HPI.) Physical Exam General Appearance: No Apparent Distress HEENT: Other (Dry mucous membranes) Neck: Full Range of Motion, Normal Inspection Respiratory: Decreased Breath Sounds, No Accessory Muscle Use, No Respiratory Distress, Other (Productive sounding cough) Cardiovascular: No Edema, No JVD, Regular Rate/Rhythm Breast Exam: Deferred Gastrointestinal: Epigastric, LLQ, RLQ, Soft, Tenderness Genitalia: Deferred Pelvic: Deferred Rectal: Deferred Extremities: Normal inspection, Normal range of motion, Non-tender, No pedal edema Neurologic: Alert (Oriented x3. Bed-bound.) Cerebellar Function: NOT DONE Reflexes: NOT DONE Skin: Dry, Normal Color, Warm Lymphatic: NOT DONE Was a procedure done? Was a procedure done?: No EKG EKG : Comments Sinus rhythm, rate 70, normal MT interval, QRS 147, QTC 475, left bundle-branch block, left axis deviation, lateral and anteroseptal T inversion Differential Dx Considerations may include: viral syndrome, colitis, diverticulitis, pneumonia, dehydration, electrolyte imbalance, wound infection, sepsis, among others X-Ray, Labs, Meds, VS Vital Signs Date Time Temp Pulse Resp B/P (MAP) Pulse Ox O2 Delivery O2 Flow Rate FiO2 01/04/25 13:40 70 01/04/25 11:50 98.9 77 18 158/72 (100) 100 98.9 Lab Test 01/04/25 13:38 01/04/25 12:43 Range/Units Troponin I High Sensitivity 18 17 </=34 ng/L White Blood Count 12.4 H 4.4-10.8 10^3/uL Red Blood Count 3.09 L 4.0-5.20 10^6/uL Hemoglobin 9.3 L 12.2-16.2 g/dL Hematocrit 27.7 L 36.0-46.0 % Mean Corpuscular Volume 89.6 80.0-100.0 fL Mean Corpuscular Hemoglobin 30.2 28.0-32.0 pg Mean Corpuscular Hemoglobin Concent 33.7 32.0-36.0 g/dL Red Cell Distribution Width 13.7 11.8-14.3 % Platelet Count 391 140-450 10^3/uL Mean Platelet Volume 7.5 6.9-10.8 fL Neutrophils (%) (Auto) 83.3 H 37.0-80.0 % Lymphocytes (%) (Auto) 9.2 L 10.0-50.0 % Monocytes (%) (Auto) 5.8 0.0-12.0 % Eosinophils (%) (Auto) 1.4 0.0-7.0 % Basophils (%) (Auto) 0.3 0.0-2.0 % Neutrophils # (Auto) 10.3 H 1.6-8.6 10 ^3/uL Lymphocytes # (Auto) 1.1 0.4-5.4 10 ^3/uL Monocytes # (Auto) 0.7 0-1.3 10 ^3/uL Eosinophils # (Auto) 0.2 0-0.8 10 ^3/uL Basophils # (Auto) 0 0-0.2 10 ^3/uL Nucleated Red Blood Cells 0.0 % Sodium Level 142 136-145 mmol/L Potassium Level 3.7 3.5-5.1 mmol/L Chloride Level 100 98-107 mmol/L Carbon Dioxide Level 38 H 20-31 mmol/L Anion Gap 4 L 5-15 Blood Urea Nitrogen 102 *H 9-23 mg/dL Creatinine 1.19 H 0.550-1.02 mg/dL Glomerular Filtration Rate Calc 45 >90 mL/min BUN/Creatinine Ratio 85.7 H 10.0-20.0 Serum Glucose 105 74-106 mg/dL Lactic Acid Level 1.1 0.4-2.0 mmol/L Calcium Level 9.0 8.7-10.4 mg/dL Total Bilirubin 0.2 0.2-1.0 mg/dL Aspartate Amino Transferase (AST) 10 L 13-40 U/L Alanine Aminotransferase (ALT) < 9 7-40 U/L Alkaline Phosphatase 67 46-116 U/L B-Type Natriuretic Peptide 13.89 0-100 pg/mL Total Protein 6.3 5.7-8.2 g/dL Albumin 3.2 3.2-4.8 g/dL Lipase 26 12-53 U/L Current Medications Medications (Trade) Dose Ordered Sig/Danna Route Start Time Stop Time Status Last Admin Sodium Chloride 1,000 ml @ 75 mls/hr [id number] ONCE IV 01/04/25 12:30 01/05/25 01:49 01/04/25 14:[address] [address] Ph: [phone] DIAGNOSTIC IMAGING Diagnostic Imaging Report : [id number] Signed PATIENT: ROLANDO VILLA ACCT: [id number] UNIT: [id number] : 1940 LOC: ER ROOM / BED: / AGE / SEX: 84 / F ADM STATUS: REG ER SERVICE ORDERING PHYSICIAN: FRANKO ASTUDILLO MD PROCEDURE(s): CXR1 - CHEST XRAY 1 VIEW REASON: productive cough ORDER NUMBER(s): [id number], ACCESSION NUMBER(s): [id number] CHEST RADIOGRAPH Indication: productive cough Technique: Single frontal view of the chest was obtained COMPARISON: XY CHEST PORTABLE on DOS: 10/30/24, XY CHEST PORTABLE on DOS: 12/10/23, XY CHEST PORTABLE on DOS: 11/13/23, XY CHEST PORTABLE on DOS: 08/12/23, XY CHEST PORTABLE on DOS: 08/02/23 FINDINGS: Lines and Tubes: None Lungs: Left lower lobe airspace disease. Pleura: No effusion. No pneumothorax. Cardiomediastinal contours: Unremarkable Bones: Unremarkable IMPRESSION: Left lower lobe airspace disease ATED BY: CONRAD ROWLEY MD DICTATED DATE/TIME: 01/04/251312 SIGNED BY: CONRAD ROWLEY MD SIGNED DATE/TIME: 01/04/251312 CC: [place] [id number] Ph: [phone] DIAGNOSTIC IMAGING Diagnostic Imaging Report : [id number] Signed PATIENT: ROLANDO VILLA ACCT: [id number] UNIT: [id number] : 1940 LOC: ER ROOM / BED: / AGE / SEX: 84 / F ADM STATUS: REG ER SERVICE 1229 ORDERING PHYSICIAN: FRANKO ASTUDILLO MD PROCEDURE(s): ABPL - CT AB PEL WO CON-NO ORAL OR IV REASON: abd pain, diarrhea ORDER NUMBER(s): [id number], ACCESSION NUMBER(s): [id number] Exam: CT CT AB PEL WO CON-NO ORAL OR IV History: abd pain, diarrhea Comparison Study: None TECHNIQUE: Multidetector CT of the abdomen and pelvis was performed from lung bases to pubic symphysis. Imaging was performed without IV contrast. Axial, coronal, and sagittal multiplanar reformats were obtained from the axial data set by the technologist. RADIATION DOSE: DLP 305.45 mGy.cm; CTDI vol 5.62 mGy. Findings: Limited evaluation given noncontrast technique. Lungs: Left lower lobe consolidation with air bronchograms. Heart: No cardiomegaly or pericardial effusion. Liver: Mild biliary ductal dilatation. Gallbladder: Cholelithiasis without evidence of acute cholecystitis. Spleen: Punctate calcifications likely sequela from prior infection. Pancreas: Unremarkable Adrenals: Unremarkable Kidneys: Hypodense lesion in the superior pole of the right kidney with peripheral calcifications. GI tract: Marked rectal fecal burden with possible rectal wall thickening. : Unremarkable. Vasculature: Mild aortoiliac atherosclerosis. Lymphadenopathy: Absent Peritoneum: No ascites Musculoskeletal: Moderate multilevel degenerative changes of the thoracolumbar spine. Soft tissues: Unremarkable Impression: 1. Limited evaluation given noncontrast technique. 2. No definite acute abdominopelvic abnormalities. 3. Marked rectal fecal burden with possible rectal wall thickening. Correlate for stercoral colitis. 4. Left lower lobe consolidation with air bronchograms favored an infectious/inflammatory etiology. 5. Mild biliary ductal dilatation, nonspecific. 6. Cholelithiasis without evidence of acute cholecystitis. ATED BY: EMILY NAVARRO DO DICTATED DATE/TIME: 01/04/25 132 SIGNED BY: EMILY NAVARRO DO SIGNED DATE/TIME: 01/04/25 1320 CC: X-Ray, Labs, Meds, VS Comment 84-year-old female with a history of CHF, Alzheimer's dementia, DM II, HLD, HTN, and chronic respiratory failure presenting with diarrhea, decreased p.o. intake, abdominal pain and productive cough Vitals remarkable for BP 158/72 Exam remarkable for diminished breath sounds, productive cough, epigastric and bilateral lower quadrant abdominal tenderness to palpation, dry mucous membranes Rhythm strip independently interpreted by me: Sinus rhythm, rate 70, no ectopy. Chest x-ray IMPRESSION: Left lower lobe airspace disease CT abdomen and pelvis Impression: 1. Limited evaluation given noncontrast technique. 2. No definite acute abdominopelvic abnormalities. 3. Marked rectal fecal burden with possible rectal wall thickening. Correlate for stercoral colitis. 4. Left lower lobe consolidation with air bronchograms favored an infectious/inflammatory etiology. 5. Mild biliary ductal dilatation, nonspecific. 6. Cholelithiasis without evidence of acute cholecystitis. CBC remarkable for WBC 12.4, metabolic panel remarkable for BUN 102, creatinine 1.19, lactate normal, troponin negative, UA and BNP pending Patient treated with the following in the ED: 0.9 normal saline at 75 cc an hour, Rocephin 1 g IV, Flagyl 500 mg IV On re-evaluation, patient appears to be resting comfortably with stable vitals. Plan is to admit the patient for IV hydration and antibiotics. Time of 1ST Reevaluation: 13:00 Reevaluation 1ST: Unchanged Patient Education/Counseling: Diagnosis, Treatment Family Education/Counseling: No Family Present Departure 1 Departure Time of Disposition: 14:13 Impression: Primary Impression: MARTÍNEZ (acute kidney injury) Additional Impressions: Pneumonia involving left lung Qualified Codes: J18.9 - Pneumonia, unspecified organism Stercoral colitis Disposition: ADMITTED INPATIENT Admit to: [facility] Condition: Guarded Critical Care Note Critical Care Time?: No Stability Stability form required: No Heart Score Heart Score: Heart Score Response (Comments) Value History N/A 0 EKG N/A 0 Age N/A 0 Risk Factors N/A 0 Troponin N/A 0 Total 0 I personally scribed for FRANKO ASTUDILLO MD (ORAL) on 01/04/25 at 13:25. Electronically submitted by Abimael Mitchell ([email or web address]). I personally scribed for FRANKO ASTUDILLO MD (ORAL) on 01/04/25 at 13:47. Electronically submitted by Abimael Mitchell ([email or web address]). I personally scribed for FRANKO ASTUDILLO MD (ORAL) on 01/04/25 at 15:55. Electronically submitted by Abimael Mitchell ([email or web address]). FRANKO ASTUDILLO MD January 04, 2025 13:25
[2025-01-04 13:28] LABS: Albumin 3.2 g/dL (3.2-4.8); Alkaline Phosphatase 67 U/L (46-116); Anion Gap 4 (5-15); BUN/Creatinine Ratio 85.7 (10.0-20.0); Chloride 100 mmol/L (98-107); Glucose 105 mg/dL (74-106); Lipase 26 U/L (12-53); Potassium 3.7 mmol/L (3.5-5.1); Sodium 142 mmol/L (136-145); Total Protein 6.3 g/dL (5.7-8.2)
[2025-01-04 13:29] LABS: Alanine Aminotransferase < 9 U/L (7-40); Aspartate Aminotransferase 10 U/L (13-40); Bilirubin, Total 0.2 mg/dL (0.2-1.0); Carbon Dioxide 38 mmol/L (20-31)
[2025-01-04 13:30] LABS: Blood Urea Nitrogen 102 mg/dL (9-23)
[2025-01-04] MEDS: SODIUM CHLORIDE 0.9% 1,000 ML IV ONE (14:26)
[2025-01-04] MEDS ORDERED: ONDANSETRON HCL 4 MG/2 ML VIAL IV PRN (15:15)
[2025-01-04] MEDS ORDERED: DOCUSATE SOD 100 MG CAP PO PRN (15:15)
--- NOTE | 2025-01-04 15:39 | DVHHP2 ---
History of Present Illness Reason for Visit: Diarrhea History of Present Illness Tamra Alejandra is an 84-year-old female with past medical history of CHF, diabetes, hyperlipidemia, hypertension, Alzheimer's disease, pneumonia, bacteremia, and home oxygen use, who came in for diarrhea. Per patient's daughter, the patient lives alone, but has caregivers 24/hours a day to help her. She is bedbound and usually only get out of bed to go to the doctor. Patient was brought in due to caregivers stating she has been experiencing black diarrhea for the last 2 weeks and decreased appetite for 1 week. Cardiovascular: CHF, HTN, hyperipidemia Pulmonary: Other (Home oxygen use) REMODELER: Dementia Endocrine: Diabetes Past Surgical History: None Smoke: No ALCOHOL: none Drugs: None Lives: Alone Domestic Violence: Neg Review of Systems Constitutional: No: Fever, Chills, Sweats, Weakness, Malaise, Other Eyes: No: Pain, Vision change, Conjunctivae inflammation, Eyelid inflammation, Other, Redness ENT: No: Ear pain, Ear discharge, Nose pain, Nose discharge, Nose congestion, Mouth pain, Mouth swelling, Throat pain, Throat swelling, Other Respiratory: No: Cough, Dry, Shortness of breath, SOB with excertion, Wheezing, Hemoptysis, Pleuritic Pain, Sputum, Wheezing, Other Cardiovascular: No: Chest Pain, Palpitations, Orthopnea, Paroxysmal Noc. Dyspnea, Edema, Lt Headedness, Other Gastrointestinal: Abdominal Pain, Diarrhea (black stool); No: Nausea, Vomiting, Constipation, Melena, Hematochezia, Other Genitourinary: No Dysuria, No Frequency, No Incontinence, No Hematuria, No Retention, No Other Musculoskeletal: No: other, neck pain, shoulder pain, arm pain, back pain, hand pain, leg pain, foot pain Skin: No: Rash, Lesions, Jaundice, Bruising, Other Neurological: Other (bedbound at baseline since June 2022); No: Weakness, Numbness, Incoordination, Change in speech, Confusion, Seizures Allergies: Coded Allergies: NO KNOWN ALLERGIES (Unverified , 06/21/20) Exam Vital Signs Vital Signs Date Time Temp Pulse Resp B/P (MAP) Pulse Ox O2 Delivery O2 Flow Rate FiO2 01/04/25 13:40 70 01/04/25 11:50 98.9 18 158/72 (100) 100 98.9 General Appearance: Alert, Oriented X3, Cooperative, mild distress HEENT: Atraumatic, PERRLA, Other (dry Mucous Mem) Respiratory: Clear to auscultation, Normal air movement Cardiovascular: Regular rate, Normal S1, Normal S2, No murmurs Abdominal: Normal bowel sounds, Soft, No tenderness, No hepatospenomegaly Extremities: No clubbing, No cyanosis, Normal pulses Skin: No rashes, No breakdown, No significant lesion (Sacral Decubitus) Neuro: Other (bedbound at baseline since June 2022) Labs/Xrays Labs Test 01/04/25 13:38 01/04/25 12:43 Range/Units Troponin I High Sensitivity 18 </=34 ng/L White Blood Count 12.4 H 4.4-10.8 10^3/uL Red Blood Count 3.09 L 4.0-5.20 10^6/uL Hemoglobin 9.3 L 12.2-16.2 g/dL Hematocrit 27.7 L 36.0-46.0 % Mean Corpuscular Volume 89.6 80.0-100.0 fL Mean Corpuscular Hemoglobin 30.2 28.0-32.0 pg Mean Corpuscular Hemoglobin Concent 33.7 32.0-36.0 g/dL Red Cell Distribution Width 13.7 11.8-14.3 % Platelet Count 391 140-450 10^3/uL Mean Platelet Volume 7.5 6.9-10.8 fL Neutrophils (%) (Auto) 83.3 H 37.0-80.0 % Lymphocytes (%) (Auto) 9.2 L 10.0-50.0 % Monocytes (%) (Auto) 5.8 0.0-12.0 % Eosinophils (%) (Auto) 1.4 0.0-7.0 % Basophils (%) (Auto) 0.3 0.0-2.0 % Neutrophils # (Auto) 10.3 H 1.6-8.6 10 ^3/uL Lymphocytes # (Auto) 1.1 0.4-5.4 10 ^3/uL Monocytes # (Auto) 0.7 0-1.3 10 ^3/uL Eosinophils # (Auto) 0.2 0-0.8 10 ^3/uL Basophils # (Auto) 0 0-0.2 10 ^3/uL Nucleated Red Blood Cells 0.0 % Sodium Level 142 136-145 mmol/L Potassium Level 3.7 3.5-5.1 mmol/L Chloride Level 100 98-107 mmol/L Carbon Dioxide Level 38 H 20-31 mmol/L Anion Gap 4 L 5-15 Blood Urea Nitrogen 102 *H 9-23 mg/dL Creatinine 1.19 H 0.550-1.02 mg/dL Glomerular Filtration Rate Calc 45 >90 mL/min BUN/Creatinine Ratio 85.7 H 10.0-20.0 Serum Glucose 105 74-106 mg/dL Lactic Acid Level 1.1 0.4-2.0 mmol/L Calcium Level 9.0 8.7-10.4 mg/dL Total Bilirubin 0.2 0.2-1.0 mg/dL Aspartate Amino Transferase (AST) 10 L 13-40 U/L Alanine Aminotransferase (ALT) < 9 7-40 U/L Alkaline Phosphatase 67 46-116 U/L B-Type Natriuretic Peptide 13.89 0-100 pg/mL Total Protein 6.3 5.7-8.2 g/dL Albumin 3.2 3.2-4.8 g/dL Lipase 26 12-53 U/L Exam: CT CT AB PEL WO CON-NO ORAL OR IV Findings: Limited evaluation given noncontrast technique. Lungs: Left lower lobe consolidation with air bronchograms. Heart: No cardiomegaly or pericardial effusion. Liver: Mild biliary ductal dilatation. Gallbladder: Cholelithiasis without evidence of acute cholecystitis. Spleen: Punctate calcifications likely sequela from prior infection. Pancreas: Unremarkable Adrenals: Unremarkable Kidneys: Hypodense lesion in the superior pole of the right kidney with per ipheral calcifications. GI tract: Marked rectal fecal burden with possible rectal wall thickening. : Unremarkable. Vasculature: Mild aortoiliac atherosclerosis. Lymphadenopathy: Absent Peritoneum: No ascites Musculoskeletal: Moderate multilevel degenerative changes of the thoracolumbar spine. Soft tissues: Unremarkable Impression: 1. Limited evaluation given noncontrast technique. 2. No definite acute abdominopelvic abnormalities. 3. Marked rectal fecal burden with possible rectal wall thickening. Correlate for stercoral colitis. 4. Left lower lobe consolidation with air bronchograms favored an infectious/inflammatory etiology. 5. Mild biliary ductal dilatation, nonspecific. 6. Cholelithiasis without evidence of acute cholecystitis. CHEST RADIOGRAPH FINDINGS: Lines and Tubes: None Lungs: Left lower lobe airspace disease. Pleura: No effusion. No pneumothorax. Cardiomediastinal contours: Unremarkable Bones: Unremarkable IMPRESSION: Left lower lobe airspace disease Assessment/Plan Assessment/Plan Assessment: Pneumonia involving left lung, Acute kidney injury, Dehydration, Hypertension, hyperlipidemia, Diabetes, CHF, Plan: Admit to Med-Surg, IV hydration, IV antibiotics, Stool for occult blood, Wound care consult, Wound culture, Accu checks Q AC&HS with sliding scale, Home mediations reconciled, Plan discussed with: Patient My Orders Orders - SARAH BETH JASSO Procedure Category Date Status Time Admit ADMIT 01/04/25 Transmitted 15:11 Code Status CODE 01/04/25 Transmitted 15:11 Hydrocodone-Acet PHA 01/04/25 Transmitted 5/325mg Tab ([place] 15:15 Ondansetron Hcl PHA 01/04/25 Transmitted (Zofran) 15:15 Docusate Sodium PHA 01/04/25 Transmitted Capsule (Colace 15:15 Complete Blood Count LAB 01/05/25 Verified 04:00 Comprehensive LAB 01/05/25 Verified Metabolic Panel 04:00 Condition: Serious NAYELI 01/04/25 Transmitted 15:11 Acetaminophen Tablet PHA 01/04/25 Transmitted (Tylenol Tablet) 15:15 Clear Liq Diet DIET 01/04/25 Transmitted Dinner Ceftriaxone Ivpb PHA 01/05/25 Transmitted Rocephin 09:00 Metronidazole Ivpb PHA 01/04/25 Transmitted Flagyl 22:00 Stool Occult Blood LAB 01/04/25 Transmitted 15:11 * Wound Consult CONS 01/04/25 Transmitted Citalopram Tablet PHA 01/05/25 Transmitted (Celexa Tablet) 10:00 Famotidine Tablet PHA 01/05/25 Transmitted (Pepcid Tablet) 10:00 Gabapentin Capsule PHA 01/04/25 Transmitted (Neurontin Capsule) 22:00 Pantoprazole Tablet PHA 01/04/25 Transmitted (Protonix Tablet) 17:00 Quetiapine Fumarate PHA 01/04/25 Verified Tablet (Seroquel Tab 22:00 Senna Pod Tablet PHA 01/04/25 Verified (Senokot Tablet) 22:00 (NF) PHA 01/04/25 Verified Carbidopa-Levodopa 22:00 (Nf) Simvastatin PHA 01/05/25 Verified 10:00 Date of Service: January 04, 2025 Billing Provider: SARAH BETH JASSO Common Visit Codes: [id number] INP/OBS CARE (MOD) SARAH BETH JASSO January 04, 2025 15:38
[2025-01-04] MEDS ORDERED: PANTOPRAZOLE 40 MG TAB PO SCH (17:00)
[2025-01-04] MEDS ORDERED: DEXTROSE (50%) 50ML SYRG IV PRN (18:00)
[2025-01-04] MEDS: cefTRIAXone 1GM/50ML D5W 50 ML IV ONE (19:30)
[2025-01-04 19:59] VITALS: PULSE 77; RESP 14; O2SAT 97
[2025-01-04] MEDS: FUROSEMIDE 40 MG TAB PO SCH (20:18)
[2025-01-04] MEDS: CARBIDOPA W LEVODOPA 10/100mg TABLET PO SCH (20:18)
[2025-01-04] MEDS: metroNIDAZOLE 500MG/100ML 100 ML IV ONE (20:25)
[2025-01-04] MEDS: HYDROcodone-ACET 5/325MG TAB PO PRN (20:25)
[2025-01-04] MEDS: InsuLIN REG 1unit/0.01ml Soln (100units/ml) SC SCH (22:00)
[2025-01-04] MEDS ORDERED: GABAPENTIN 100 MG CAP PO SCH (22:00)
[2025-01-04] MEDS: metroNIDAZOLE 500MG/100ML 100 ML IV SCH (22:00)
[2025-01-04] MEDS: ACCU-CHEK COMFORT CURVE STRIP VI SCH (22:00)
[2025-01-04 22:07] VITALS: PULSE 64; RESP 18; O2SAT 93
[2025-01-04] MEDS: DOCUSATE SOD 100 MG CAP PO SCH (22:55)
[2025-01-04] MEDS: SENNA 8.6 MG TAB PO SCH (22:56)
[2025-01-04] MEDS: ATORVASTATIN 20 MG TAB PO SCH (22:56)
[2025-01-04] MEDS: QUEtiapine FUMARATE 25 MG TAB PO SCH (22:56)
[2025-01-04 23:31] LABS: Urine Bacteria MANY /hpf (None Seen); Urine Blood 2+ /uL (Negative); Urine Clarity Ex.Turbid (Clear); Urine Color Dark-Brown (Yellow); Urine Protein, UAD 1+ (Negative); Urine Specific Gravity 1.009 (1.001-1.035); Urine Squamous Epithelial Cell MOD /hpf (<5); Urine Urobilinogen Normal (Negative); Urine WBC 1105 /HPF (0-5); Urine WBC Clumps PRESENT /hpf (None Seen)
[2025-01-04 23:58] VITALS: BP 142/81; PULSE 61; RESP 19; TEMP 97.9; O2SAT 100
[2025-01-05] VITALS (7 sets, daily range): BP systolic 111–158; BP diastolic 56–79; PULSE 56–72; RESP 16–19; TEMP 97.6–98.5; O2SAT 99–100
[2025-01-05 06:24] LABS: Alkaline Phosphatase 61 U/L (46-116); Anion Gap 8 (5-15); Aspartate Aminotransferase 20 U/L (13-40); Chloride 102 mmol/L (98-107); Potassium 4.3 mmol/L (3.5-5.1); Sodium 142 mmol/L (136-145)
[2025-01-05 06:43] LABS: Alanine Aminotransferase < 9 U/L (7-40); Bilirubin, Total 0.2 mg/dL (0.2-1.0); Blood Urea Nitrogen 96 mg/dL (9-23); Calcium 8.6 mg/dL (8.7-10.4); Carbon Dioxide 32 mmol/L (20-31); Glucose 107 mg/dL (74-106)
[2025-01-05] MEDS: cefTRIAXone 1GM/50ML D5W 50 ML IV SCH (09:45)
[2025-01-05] MEDS: ENALAPRIL MALEATE 10 MG TAB PO SCH (09:45)
[2025-01-05] MEDS ORDERED: CITALOPRAM HYDROBR 20 MG TAB PO SCH (10:00)
[2025-01-05] MEDS ORDERED: FAMOTIDINE 20 MG TAB PO SCH (10:00)
[2025-01-05 10:36] LABS: Basophils # (auto) 0 10 ^3/uL (0-0.2); Basophils % (auto) 0.3 % (0.0-2.0); Eosinophils # (auto) 0.1 10 ^3/uL (0-0.8); Eosinophils % (auto) 0.7 % (0.0-7.0); Hematocrit 30.7 % (36.0-46.0); Hemoglobin 10.4 g/dL (12.2-16.2); Lymphocytes # (auto) 1.2 10 ^3/uL (0.4-5.4); Lymphocytes % (auto) 10.3 % (10.0-50.0); Mean Corpuscular Hemoglobin 30.2 pg (28.0-32.0); Mean Corpuscular Hgb Conc. 33.9 g/dL (32.0-36.0); Mean Corpuscular Volume 89.2 fL (80.0-100.0); Monocytes # (auto) 0.6 10 ^3/uL (0-1.3); Monocytes % (auto) 4.8 % (0.0-12.0); Neutrophils % (auto) 83.9 % (37.0-80.0); Platelet Count (auto) 338 10^3/uL (140-450); Red Blood Cells 3.44 10^6/uL (4.0-5.20); Red Cell Distribution Width 13.7 % (11.8-14.3); White Blood Cell 11.9 10^3/uL (4.4-10.8)
--- NOTE | 2025-01-05 13:13 | DVHPN2 ---
Subjective 84-year-old female with a history of dementia, type 2 diabetes, heart failure, hypertension, dyslipidemia, Parkinson's disease who is bed-bound at home with caregivers was brought to the hospital due to altered level of consciousness and decreased appetite and decreased oral intake and also diarrhea with tarry black stools according to the daughter for 2 weeks Evaluation here showed left lower lobe pneumonia White count is elevated BUN is 102 and creatinine is 1.1 The daughter also is reporting and dysphagia for the last few days Changes from previous H/P or p: Changes Eyes: No Pain, No Vision change, No Conjunctivae inflammation, No Eyelid inflammation, No Other, No Redness ENT: No Ear pain, No Ear discharge, No Nose pain, No Nose discharge, No Nose congestion, No Mouth pain, No Mouth swelling, No Throat pain, No Throat swelling, No Other Cardiovascular: No Chest Pain, No Palpitations, No Orthopnea, No Paroxysmal Noc. Dyspnea, No Edema, No Lt Headedness, No Other Respiratory: No Cough, No Dry, No Shortness of breath, No SOB with excertion, No Wheezing, No Hemoptysis, No Pleuritic Pain, No Sputum, No Other Gastrointestinal: No Nausea, No Vomiting; Abdominal Pain, Diarrhea (black stool); No Constipation, No Melena, No Hematochezia, No Other Genitourinary: No Dysuria, No Frequency, No Incontinence, No Hematuria, No Retention, No Other Musculoskeletal: No other, No neck pain, No shoulder pain, No arm pain, No back pain, No hand pain, No leg pain, No foot pain Skin: No Rash, No Lesions, No Jaundice, No Bruising, No Other Objective Vitals Vital Signs Date Time Temp Pulse Resp B/P (MAP) Pulse Ox O2 Delivery O2 Flow Rate FiO2 01/05/25 09:45 141/56 01/05/25 09:00 56 16 100 01/05/25 08:00 Nasal Cannula* 2 28 01/05/25 05:00 97.6 97.6 Intake/Output Intake and Output 01/05/25 07:00 Intake Total 725 ml Output Total 450 ml Balance 275 ml Intake IV Total 725 ml Output Urine Total 450 ml # Bowel Movements 1 General Appearance: Alert, Other (Disoriented to time and place) Lungs: Clear to auscultation, Normal air movement Cardiovascular: Regular rate, Normal S1, Normal S2 Abdomen: Normal bowel sounds, Soft, No tenderness Extremities: No edema Medications Current Medications Medications Dose Ordered Sig/Danna Route Start Time Stop Time Status Last Admin Dose Admin Ondansetron HCl 4 mg Q4HP PRN IV 01/04/25 15:15 Docusate Sodium 100 mg BIDPRN PRN PO 01/04/25 15:15 Acetaminophen 650 mg Q6HP PRN PO 01/04/25 15:15 Ceftriaxone Sodium 50 ml @ 100 mls/hr DAILY@09 IV 01/05/25 09:00 01/05/25 09:45 100 MLS/HR Metronidazole 100 ml @ 100 mls/hr Q8HR IV 01/04/25 22:00 01/05/25 05:18 100 MLS/HR Citalopram Hydrobromide 20 mg DAILY PO 01/05/25 10:00 Hold Famotidine 20 mg DAILY PO 01/05/25 10:00 Hold Gabapentin 100 mg TID PO 01/04/25 22:00 Hold Pantoprazole Sodium 40 mg BIDAC PO 01/04/25 17:00 Hold Quetiapine Fumarate 50 mg HS PO 01/04/25 22:00 01/04/25 22:56 50 MG Sennosides 8.6 mg QHSP PO 01/04/25 22:00 01/04/25 22:56 8.6 MG Carbidopa/Levodopa 1 tab TID PO 01/04/25 15:44 01/04/25 22:00 1 TAB Atorvastatin Calcium 20 mg HS PO 01/04/25 22:00 01/04/25 22:56 20 MG Docusate Sodium 100 mg BID PO 01/04/25 22:00 01/05/25 09:45 100 MG Enalapril Maleate 10 mg DAILY PO 01/05/25 10:00 01/05/25 09:45 10 MG Furosemide 40 mg BIDD PO 01/04/25 18:00 01/05/25 05:20 40 MG Diagnostic Test (Pha) 1 strip ACHS 01/04/25 22:00 01/05/25 11:16 1 STRIP Insulin Human Regular ACHS SC 01/04/25 22:00 Dextrose 50 ml UD PRN IV 01/04/25 18:00 Laboratory Results Laboratory Tests 01/05/25 05:03 01/05/25 10:00 Chemistry Test 01/05/25 05:03 Albumin 3.0 g/dL (3.2-4.8) L Calcium Level 8.6 mg/dL (8.7-10.4) L Magnesium Level 2.2 mg/dL (1.6-2.6) Total Protein 6.0 g/dL (5.7-8.2) LFT Test 01/05/25 05:03 Alanine Aminotransferase (ALT) < 9 U/L (7-40) Alkaline Phosphatase 61 U/L (46-116) Aspartate Amino Transferase (AST) 20 U/L (13-40) Total Bilirubin 0.2 mg/dL (0.2-1.0) HgA1c, TSH Test 01/05/25 05:03 01/05/25 10:00 Thyroid Stimulating Hormone (TSH) 1.68 uIU/mL (0.55-4.78) Hemoglobin A1c 5.0 % A1C (<5.7) Urinalysis Test 01/04/25 22:39 Urine Color Dark-brown (Yellow) Urine Clarity Ex.turbid (Clear) Urine pH 6.0 (5.0-9.0) Urine Specific [place] 1.009 (1.001-1.035) Urine Protein 1+ (Negative) H Urine Ketones Negative (Negative) Urine Blood 2+ /uL (Negative) H Urine Nitrite Negative (Negative) Urine Bilirubin Negative (Negative) Urine Urobilinogen Normal mg/dL (Negative) Urine Leukocyte Esterase 3+ /uL (Negative) Urine RBC 174 /hpf (0 - 4) Urine WBC Clumps Present /hpf (None Seen) Urine Microscopic WBC 1105 /HPF (0-5) H Urine Squamous Epithelial Cells Mod /hpf (<5) Urine Bacteria Many /hpf (None Seen) H Urine Glucose Normal mg/dL (Normal) Microbiology Microbiology Date/Time Source Procedure Growth Status 01/04/25 22:39 Urine - Catheterized Urine Culture - Preliminary Resulted 01/04/25 12:43 Blood Blood Culture - Preliminary NO GROWTH AFTER 24 HOURS OF INCUBATION. Resulted Assessment/Plan Assessment/Plan Acute metabolic encephalopathy Diarrhea rule out C diff colitis Rule out GI bleed Left lower lobe pneumonia Acute kidney injury due to vasomotor nephropathy Dehydration Alzheimer's dementia Parkinson's disease Type 2 diabetes History of hypertension History of congestive heart failure Dyslipidemia Cholelithiasis Dysphagia Generalized weakness Bed-bound UTI Plan Empirical broad-spectrum antibiotics with Rocephin and Flagyl NPO Swallow eval Get the stool specimen for guaiac which was positive Send the stools also for C diff and culture GI consult IV Protonix IV fluids Hold unnecessary p.o. medications Full code Advance directives discussed for 20 minutes Care plan was discussed with the daughter at the bedside Plan discussed with: Patient, Daughter My Orders Orders - BEKA BOOKER MD Procedure Category Date Status Time Clostridium Difficile JANIS 01/05/25 Uncollected Toxin 12:18 Stool Bacterial JANIS 01/05/25 Uncollected Culture 12:18 * Swallow Request ST 01/05/25 Transmitted 12:18 Date of Service: January 05, 2025 Billing Provider: BEKA BOOKER MD Common Visit Codes: [id number] INP/OBS CARE(HIGH) Secondary Visit Codes: [id number] CARE PLAN 30 MINUTES BEKA BOOKER MD January 05, 2025 13:13
[2025-01-05] MEDS: SODIUM CHLORIDE 0.9% 1,000 ML IV SCH (13:51)
[2025-01-05] MEDS: PANTOPRAZOLE 40 MG/10 ML VIAL INJ IV ONE (13:51)
--- NOTE | 2025-01-05 13:53 | ECG ---
[facility] Test Date: 2025-01-04 Test Time: 13:40:05 Pat Name: ROLANDO VILLA Department: ED Room: 0232 A Gender: F Key Maker: gustavo : 1940 Requested By: FRANKO DO Order Number: [id number] Reading MD: Fab Valentine Measurements Intervals [place] Rate: 70 P: 42 RI: 187 QRS: -53 QRSD: 147 T: 112 QT: 440 QTc: 475 Interpretive Statements Sinus rhythm Left bundle branch block Electronically Signed On 01-06-2025 21:17:21 PDT by Fab Valentine Please click the below link to view image of tracing.
--- NOTE | 2025-01-05 21:07 | DVHINCON2 ---
Date of service: January 05, [address] Covarrubias Reason for Consultation Rectal bleeding History of Present Illness 84-year-old female with a history of dementia, type 2 diabetes, heart failure, hypertension, dyslipidemia, Parkinson's disease who is bed-bound at home with caregivers was brought to the hospital due to altered level of consciousness and decreased appetite and decreased oral intake and also diarrhea with tarry black stools according to the daughter for 2 weeks Evaluation here showed left lower lobe pneumonia .CT shows possible large stool burden in the rectum and possible stercoral colitis. 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 Allergies: Coded Allergies: NO KNOWN ALLERGIES (Unverified , 06/21/20) Home Meds Active Scripts Sucralfate (CARAFATE SUSP) 1 Gm/10 Ml Ss, 10 ML PO QID, #1200 ML 3 Refills Prov:JENNA ESPARZA MD 08/18/23 Pantoprazole Sodium Sesquihydr (Protonix) 40 Mg Tab, 40 MG PO BIDAC, #60 TAB Prov:JENNA ESPARZA MD 08/18/23 Ferrous Sulfate (Iron) 325 Mg Tab, 325 MG PO DAILY for 30 Days, #30 TAB Prov:ROBINSON BURKETT MD 09/24/21 Reported Medications Potassium Chloride (Klor-Con M20) 20 Meq Tab, 20 MEQ PO BID, TAB 12/12/23 Acetaminophen (Acetaminophen) 500 Mg Tab, 500 MG PO Q6HPRN PRN for MILD PAIN (1- 3 PAIN SCALE), TAB 12/12/23 Mirtazapine (Mirtazapine Oral Disintegrating Tablet) 15 Mg Tab, 15 MG PO QPM 12/12/23 Enalapril Maleate (Enalapril Maleate) 10 Mg Tab, 10 MG PO DAILY, TAB 12/12/23 Carbidopa-Levodopa (Carbidopa/Levodopa Odt 10-100 mg) 1 Tab Tab, 1 TAB PO TID 12/12/23 Lactulose (Lactulose) 10 Gm/15 Ml Isidra, 20 GM PO DAILY, ML 12/11/23 Docusate Sodium (Colace) 100 Mg Cap, 1 CAP PO BID, #30 CAP 12/11/23 Folic Acid (Folic Acid) 1 Mg Tab, 1 MG PO for 30 Days, MG 12/11/23 Furosemide (Furosemide) 40 Mg Tab, 40 MG PO BIDD, MG 05/12/22 Quetiapine Fumerate (Seroquel) 25 Mg Tab, 50 MG PO HS, TAB 09/09/21 Famotidine (Famotidine) 20 Mg Tab, 20 MG PO DAILY for 30 Days, MG 09/09/21 Simvastatin (Simvastatin) 40 Mg Tab, 40 MG PO DAILY for 30 Days 09/09/21 Citalopram Hydrobromide (Citalopram Hydrobromide) 20 Mg Tab, 20 MG PO DAILY for 30 Days, MG 09/09/21 Senna (Senna Lax) 8.6 Mg Tab, 8.6 MG PO QHSP, MG 09/09/21 Montelukast Sodium (MONTELUKAST SODIUM) 10 Mg Tab, 1 TAB PO DAILY, #30 TAB 5 Refills 09/09/21 Gabapentin (Gabapentin) 100 Mg Cap, 100 MG PO TID 09/09/21 Current Medications Current Medications Medications (Trade) Dose Ordered Sig/Danna Route PRN Reason Start Time Stop Time Status Last Admin Ceftriaxone Sodium 50 ml @ 100 mls/hr DAILY@09 IV 01/05/25 09:00 01/05/25 09:45 Metronidazole 100 ml @ 100 mls/hr Q8HR IV 01/04/25 22:00 01/05/25 13:51 Citalopram Hydrobromide (CeleXA TABLET) 20 mg DAILY PO 01/05/25 10:00 01/05/25 13:11 DC Famotidine (Pepcid Tablet) 20 mg DAILY PO 01/05/25 10:00 01/05/25 13:08 DC Gabapentin (Neurontin Capsule) 100 mg TID PO 01/04/25 22:00 Hold Quetiapine Fumarate (SEROquel TABLET) 50 mg HS PO 01/04/25 22:00 01/04/25 22:56 Sennosides (Senokot Tablet) 8.6 mg QHSP PO 01/04/25 22:00 01/05/25 13:08 DC 01/04/25 22:56 Atorvastatin Calcium (Lipitor) 20 mg HS PO 01/04/25 22:00 01/05/25 13:11 DC 01/04/25 22:56 Docusate Sodium (Colace Capsule) 100 mg BID PO 01/04/25 22:00 01/05/25 13:08 DC 01/05/25 09:45 Enalapril Maleate (Vasotec Tablet) 10 mg DAILY PO 01/05/25 10:00 01/05/25 09:45 Diagnostic Test (Pha) (Accu-Chek Comfort Curve T) 1 strip ACHS 01/04/25 22:00 01/05/25 16:16 Insulin Human Regular (InsuLIN R) ACHS SC 01/04/25 22:00 Pantoprazole Sodium (Protonix) 40 mg BID IV 01/05/25 22:00 Sodium Chloride 1,000 ml @ 60 mls/hr [id number] IV 01/05/25 13:15 01/05/25 13:51 Morphine Sulfate 1 mg Q6HP PRN IV SEVERE PAIN (7-10 PAIN SCALE) 01/05/25 13:15 Vital Signs Vital Signs Date Time Temp Pulse Resp B/P (MAP) Pulse Ox O2 Delivery O2 Flow Rate FiO2 01/05/25 17:00 97.7 63 16 140/66 (90) 99 97.7 01/05/25 08:00 Nasal Cannula* 2 28 Physical Exam Patient is awake alert in no acute distress General Appearance: Alert, Other (Disoriented to time and place) Lungs: Clear to auscultation, Normal air movement Cardiovascular: Regular rate, Normal S1, Normal S2 Abdomen: Normal bowel sounds, Soft, No tenderness Extremities: No edema Labs/Diagnostic Data Labs Test 01/05/25 16:13 01/05/25 10:00 01/05/25 07:24 01/05/25 05:03 Range/Units POC Glucose 87 70-106 mg/dl White Blood Count 11.9 H 4.4-10.8 10^3/uL Red Blood Count 3.44 L 4.0-5.20 10^6/uL Hemoglobin 10.4 L 12.2-16.2 g/dL Hematocrit 30.7 #L 36.0-46.0 % Mean Corpuscular Volume 89.2 80.0-100.0 fL Mean Corpuscular Hemoglobin 30.2 28.0-32.0 pg Mean Corpuscular Hemoglobin Concent 33.9 32.0-36.0 g/dL Red Cell Distribution Width 13.7 11.8-14.3 % Platelet Count 338 140-450 10^3/uL Mean Platelet Volume 7.7 6.9-10.8 fL Neutrophils (%) (Auto) 83.9 H 37.0-80.0 % Lymphocytes (%) (Auto) 10.3 10.0-50.0 % Monocytes (%) (Auto) 4.8 0.0-12.0 % Eosinophils (%) (Auto) 0.7 0.0-7.0 % Basophils (%) (Auto) 0.3 0.0-2.0 % Neutrophils # (Auto) 10.0 H 1.6-8.6 10 ^3/uL Lymphocytes # (Auto) 1.2 0.4-5.4 10 ^3/uL Monocytes # (Auto) 0.6 0-1.3 10 ^3/uL Eosinophils # (Auto) 0.1 0-0.8 10 ^3/uL Basophils # (Auto) 0 0-0.2 10 ^3/uL Nucleated Red Blood Cells 0.0 % Hemoglobin A1c 5.0 <5.7 % A1C Vitamin B12 Level 4648 H 211-911 pg/mL Vitamin D 25-Hydroxy 76.9 30.0-100 ng/mL Sodium Level 142 136-145 mmol/L Potassium Level 4.3 3.5-5.1 mmol/L Chloride Level 102 98-107 mmol/L Carbon Dioxide Level 32 H 20-31 mmol/L Anion Gap 8 5-15 Blood Urea Nitrogen 96 *H 9-23 mg/dL Creatinine 1.13 H 0.550-1.02 mg/dL Glomerular Filtration Rate Calc 47 >90 mL/min BUN/Creatinine Ratio 85.0 H 10.0-20.0 Serum Glucose 107 H 74-106 mg/dL Calcium Level 8.6 L 8.7-10.4 mg/dL Magnesium Level 2.2 1.6-2.6 mg/dL Total Bilirubin 0.2 0.2-1.0 mg/dL Aspartate Amino Transferase (AST) 20 13-40 U/L Alanine Aminotransferase (ALT) < 9 7-40 U/L Alkaline Phosphatase 61 46-116 U/L Total Protein 6.0 5.7-8.2 g/dL Albumin 3.0 L 3.2-4.8 g/dL Thyroid Stimulating Hormone (TSH) 1.68 0.55-4.78 uIU/mL Test 01/05/25 02:45 01/04/25 22:39 01/04/25 13:38 01/04/25 12:43 Range/Units Stool Occult Blood Positive Negative Stool Occult Blood Sample #3 Negative Urine Color Dark-brown Yellow Urine Clarity Ex.turbid Clear Urine pH 6.0 5.0-9.0 Urine Specific [place] 1.009 1.001-1.035 Urine Protein 1+ H Negative Urine Ketones Negative Negative Urine Blood 2+ H Negative /uL Urine Nitrite Negative Negative Urine Bilirubin Negative Negative Urine Urobilinogen Normal Negative mg/dL Urine Leukocyte Esterase 3+ Negative /uL Urine RBC 174 0 - 4 /hpf Urine WBC Clumps Present None Seen /hpf Urine Microscopic WBC 1105 H 0-5 /HPF Urine Squamous Epithelial Cells Mod <5 /hpf Urine Bacteria Many H None Seen /hpf Urine Glucose Normal Normal mg/dL Troponin I High Sensitivity 18 </=34 ng/L Lactic Acid Level 1.1 0.4-2.0 mmol/L B-Type Natriuretic Peptide 13.89 0-100 pg/mL Lipase 26 12-53 U/L Microbiology Date/Time Source Procedure Growth Status 01/04/25 22:39 Urine - Catheterized Urine Culture - Preliminary Resulted 01/04/25 12:43 Blood Blood Culture - Preliminary NO GROWTH AFTER 24 [address]. Resulted CT SCAN ABD PELVIS Impression: 1. Limited evaluation given noncontrast technique. 2. No definite acute abdominopelvic abnormalities. 3. Marked rectal fecal burden with possible rectal wall thickening. Correlate for stercoral colitis. 4. Left lower lobe consolidation with air bronchograms favored an infectious/inflammatory etiology. 5. Mild biliary ductal dilatation, nonspecific. 6. Cholelithiasis without evidence of acute cholecystitis. Problems(with codes): (1) Stercoral colitis (2) MARTÍNEZ (acute kidney injury) (3) Pneumonia involving left lung (4) Dysphagia (5) AMS (altered mental status) (6) Heme + stool (7) Melena (8) Anemia of chronic disease Plan/Recommendation Plan Patient is currently hemodynamically stable in the H&H is stable for now Continue treatment with IV antibiotics for pneumonia and UTI possible urosepsis Protonix 40 mg IV q.12 hours Clear liquid diet; stool softeners and gentle laxative I will monitor the patient over the next 24-48 hours and then plan on an endoscopy if the family is agreeable Avoid aspirin NSAIDs blood thinners for now Plan discussed with: Patient, Other (Vice President Of Customer Service) LONNIE ECHOLS MD January 05, 2025 21:07
[2025-01-05] MEDS: PANTOPRAZOLE 40 MG/10 ML VIAL INJ IV SCH (22:32)
[2025-01-06] VITALS (8 sets, daily range): BP systolic 100–146; BP diastolic 45–67; PULSE 57–81; RESP 16–18; TEMP 97.7–98.5; O2SAT 93–100
[2025-01-06 05:33] LABS: Basophils # (auto) 0.1 10 ^3/uL (0-0.2); Basophils % (auto) 0.5 % (0.0-2.0); Eosinophils # (auto) 0.1 10 ^3/uL (0-0.8); Eosinophils % (auto) 0.6 % (0.0-7.0); Hematocrit 25.6 % (36.0-46.0); Hemoglobin 8.6 g/dL (12.2-16.2); Lymphocytes # (auto) 0.9 10 ^3/uL (0.4-5.4); Mean Corpuscular Hemoglobin 29.8 pg (28.0-32.0); Mean Corpuscular Hgb Conc. 33.7 g/dL (32.0-36.0); Mean Corpuscular Volume 88.3 fL (80.0-100.0); Monocytes # (auto) 0.6 10 ^3/uL (0-1.3); Monocytes % (auto) 4.8 % (0.0-12.0); Neutrophils # (auto) 11.4 10 ^3/uL (1.6-8.6); Neutrophils % (auto) 87.1 % (37.0-80.0); Nucleated Red Blood Cells % 0.1 %; Platelet Count (auto) 378 10^3/uL (140-450); Red Cell Distribution Width 13.8 % (11.8-14.3)
[2025-01-06 05:45] LABS: Alkaline Phosphatase 60 U/L (46-116); Anion Gap 7 (5-15); BUN/Creatinine Ratio 76.4 (10.0-20.0); Bilirubin, Total 0.3 mg/dL (0.2-1.0); Calcium 9.2 mg/dL (8.7-10.4); Chloride 102 mmol/L (98-107); Magnesium 2.2 mg/dL (1.6-2.6); Sodium 145 mmol/L (136-145); Total Protein 6.3 g/dL (5.7-8.2)
[2025-01-06 05:48] LABS: Alanine Aminotransferase < 9 U/L (7-40); Aspartate Aminotransferase 12 U/L (13-40); Carbon Dioxide 36 mmol/L (20-31); Glucose 109 mg/dL (74-106); Potassium 3.5 mmol/L (3.5-5.1)
[2025-01-06 05:49] LABS: Albumin 3.2 g/dL (3.2-4.8)
[2025-01-06 05:51] LABS: Blood Urea Nitrogen 84 mg/dL (9-23)
--- NOTE | 2025-01-06 11:44 | DVHPN2 ---
Subjective No more diarrhea Daughter says that patient is probably more confused today Changes from previous H/P or p: Changes Eyes: No Pain, No Vision change, No Conjunctivae inflammation, No Eyelid inflammation, No Other, No Redness ENT: No Ear pain, No Ear discharge, No Nose pain, No Nose discharge, No Nose congestion, No Mouth pain, No Mouth swelling, No Throat pain, No Throat swelling, No Other Cardiovascular: No Chest Pain, No Palpitations, No Orthopnea, No Paroxysmal Noc. Dyspnea, No Edema, No Lt Headedness, No Other Respiratory: No Cough, No Dry, No Shortness of breath, No SOB with excertion, No Wheezing, No Hemoptysis, No Pleuritic Pain, No Sputum, No Other Gastrointestinal: No Nausea, No Vomiting; Abdominal Pain, Diarrhea (black stool); No Constipation, No Melena, No Hematochezia, No Other Genitourinary: No Dysuria, No Frequency, No Incontinence, No Hematuria, No Retention, No Other Musculoskeletal: No other, No neck pain, No shoulder pain, No arm pain, No back pain, No hand pain, No leg pain, No foot pain Skin: No Rash, No Lesions, No Jaundice, No Bruising, No Other Objective Vitals Vital Signs Date Time Temp Pulse Resp B/P (MAP) Pulse Ox O2 Delivery O2 Flow Rate FiO2 01/06/25 09:10 107/51 01/06/25 09:00 98.3 61 16 100 98.3 01/05/25 20:00 Nasal Cannula* 2 28 Intake/Output Intake and Output 01/06/25 07:00 Intake Total 670 ml Output Total 1150 ml Balance -480 ml Intake Oral 520 ml IV Total 150 ml Output Urine Total 1150 ml # Bowel Movements 1 General Appearance: Alert, Other (Disoriented to time and place) Lungs: Clear to auscultation, Normal air movement Cardiovascular: Regular rate, Normal S1, Normal S2 Abdomen: Normal bowel sounds, Soft, No tenderness Extremities: No edema Medications Current Medications Medications Dose Ordered Sig/Danna Route Start Time Stop Time Status Last Admin Dose Admin Ondansetron HCl 4 mg Q4HP PRN IV 01/04/25 15:15 Acetaminophen 650 mg Q6HP PRN PO 01/04/25 15:15 Ceftriaxone Sodium 50 ml @ 100 mls/hr DAILY@09 IV 01/05/25 09:00 01/06/25 09:09 100 MLS/HR Metronidazole 100 ml @ 100 mls/hr Q8HR IV 01/04/25 22:00 01/06/25 05:36 100 MLS/HR Gabapentin 100 mg TID PO 01/04/25 22:00 Hold Quetiapine Fumarate 50 mg HS PO 01/04/25 22:00 01/05/25 22:32 50 MG Carbidopa/Levodopa 1 tab TID PO 01/04/25 15:44 01/06/25 06:22 1 TAB Enalapril Maleate 10 mg DAILY PO 01/05/25 10:00 01/06/25 09:10 10 MG Diagnostic Test (Pha) 1 strip ACHS 01/04/25 22:00 01/06/25 05:49 1 STRIP Insulin Human Regular ACHS SC 01/04/25 22:00 Dextrose 50 ml UD PRN IV 01/04/25 18:00 Pantoprazole Sodium 40 mg BID IV 01/05/25 22:00 01/06/25 09:09 40 MG Sodium Chloride 1,000 ml @ 60 mls/hr [id number] IV 01/05/25 13:15 01/06/25 05:37 60 MLS/HR Morphine Sulfate 1 mg Q6HP PRN IV 01/05/25 13:15 Laboratory Results Laboratory Tests 01/06/25 04:55 Chemistry Test 01/06/25 04:55 Albumin 3.2 g/dL (3.2-4.8) Calcium Level 9.2 mg/dL (8.7-10.4) Magnesium Level 2.2 mg/dL (1.6-2.6) Total Protein 6.3 g/dL (5.7-8.2) LFT Test 01/06/25 04:55 Alanine Aminotransferase (ALT) < 9 U/L (7-40) Alkaline Phosphatase 60 U/L (46-116) Aspartate Amino Transferase (AST) 12 U/L (13-40) L Total Bilirubin 0.3 mg/dL (0.2-1.0) Urinalysis Test 01/04/25 22:39 Urine Color Dark-brown (Yellow) Urine Clarity Ex.turbid (Clear) Urine pH 6.0 (5.0-9.0) Urine Specific [place] 1.009 (1.001-1.035) Urine Protein 1+ (Negative) H Urine Ketones Negative (Negative) Urine Blood 2+ /uL (Negative) H Urine Nitrite Negative (Negative) Urine Bilirubin Negative (Negative) Urine Urobilinogen Normal mg/dL (Negative) Urine Leukocyte Esterase 3+ /uL (Negative) Urine RBC 174 /hpf (0 - 4) Urine WBC Clumps Present /hpf (None Seen) Urine Microscopic WBC 1105 /HPF (0-5) H Urine Squamous Epithelial Cells Mod /hpf (<5) Urine Bacteria Many /hpf (None Seen) H Urine Glucose Normal mg/dL (Normal) Microbiology Microbiology Date/Time Source Procedure Growth Status 01/04/25 22:39 Urine - Catheterized Urine Culture - Preliminary Resulted 01/04/25 12:43 Blood Blood Culture - Preliminary NO GROWTH AFTER 24 HOURS OF INCUBATION. Resulted Assessment/Plan Assessment/Plan Acute metabolic encephalopathy Diarrhea rule out C diff colitis Rule out GI bleed Left lower lobe pneumonia Acute kidney injury due to vasomotor nephropathy Dehydration Alzheimer's dementia Parkinson's disease Type 2 diabetes History of hypertension History of congestive heart failure Dyslipidemia Cholelithiasis Dysphagia Generalized weakness Bed-bound UTI Plan Empirical broad-spectrum antibiotics with Rocephin and Flagyl NPO Swallow eval Get the stool specimen for guaiac which was positive Send the stools also for C diff and culture GI consult IV Protonix IV fluids Hold unnecessary p.o. medications Full code Advance directives discussed for 20 minutes Care plan was discussed with the daughter at the bedside 01/06/2025: Continue IV antibiotics Continue IV fluids normal saline at 60 mL an hour Continue the current management No diarrhea anymore so the C diff was not done The patient had positive guaiac stools, the GI consult is appreciated, recommendation is for conservative treatment with proton pump inhibitors and clear liquid diet and monitor Avoid aspirin and NSAIDs Avoids blood thinners Monitor closely Plan discussed with: Daughter My Orders Orders - BEKA BOOKER MD Procedure Category Date Status Time Clostridium Difficile JANIS 01/05/25 Uncollected Toxin 12:18 Stool Bacterial JANIS 01/05/25 Uncollected Culture 12:18 * Swallow Request ST 01/05/25 Transmitted 12:18 Cleanse Wound With NAYELI 01/05/25 In Process Wound Clean 11:04 Apply Z-Guard NAYELI 01/05/25 In Process 11:04 Pantoprazole PHA 01/05/25 In Process (Protonix) 22:00 Sodium Chloride 0.9% PHA 01/05/25 In Process 13:15 Morphine Sulfate PHA 01/05/25 In Process Injection 13:15 * Swallow Request ST 01/05/25 Transmitted 13:12 * Gi D[facility] [employer]pet Rep[employer]r CONS 01/05/25 Transmitted 14:28 Pureed DIET 01/05/25 Transmitted Dinner Covid19 Antigen Alia LAB 01/06/25 Logged Rapid Influenza A&B LAB 01/06/25 Logged 10:19 Date of Service: January 06, 2025 Billing Provider: BEKA BOOKER MD Common Visit Codes: [id number] INP/OBS CARE(HIGH) BEKA BOOKER MD January 06, 2025 11:44
[2025-01-06] MEDS: MORPHINE SULFATE INJ 2 MG/ml SYRG IV PRN (13:35)
[2025-01-07] VITALS (8 sets, daily range): BP systolic 124–161; BP diastolic 63–96; PULSE 54–78; RESP 16–18; TEMP 97.4–98.3; O2SAT 90–100
[2025-01-07 05:04] LABS: COVID19 ANTIGEN SOFIA FIA NEGATIVE (NEGATIVE); Rapid Influenza A Negative (Negative); Rapid Influenza B Negative (Negative)
[2025-01-07 05:17] LABS: Basophils # (auto) 0 10 ^3/uL (0-0.2); Basophils % (auto) 0.3 % (0.0-2.0); Eosinophils # (auto) 0.1 10 ^3/uL (0-0.8); Eosinophils % (auto) 1.2 % (0.0-7.0); Hematocrit 28.3 % (36.0-46.0); Hemoglobin 9.5 g/dL (12.2-16.2); Lymphocytes # (auto) 1.1 10 ^3/uL (0.4-5.4); Lymphocytes % (auto) 9.2 % (10.0-50.0); Mean Corpuscular Hgb Conc. 33.6 g/dL (32.0-36.0); Mean Corpuscular Volume 89.5 fL (80.0-100.0); Monocytes # (auto) 0.8 10 ^3/uL (0-1.3); Monocytes % (auto) 6.6 % (0.0-12.0); Neutrophils # (auto) 10.1 10 ^3/uL (1.6-8.6); Neutrophils % (auto) 82.7 % (37.0-80.0); Platelet Count (auto) 324 10^3/uL (140-450); Red Blood Cells 3.17 10^6/uL (4.0-5.20); Red Cell Distribution Width 13.8 % (11.8-14.3); White Blood Cell 12.2 10^3/uL (4.4-10.8)
[2025-01-07 05:39] LABS: Alkaline Phosphatase 60 U/L (46-116); Anion Gap 8 (5-15); BUN/Creatinine Ratio 73.7 (10.0-20.0); Chloride 101 mmol/L (98-107); Glucose 88 mg/dL (74-106); Magnesium 2.1 mg/dL (1.6-2.6); Potassium 3.7 mmol/L (3.5-5.1); Sodium 142 mmol/L (136-145); Total Protein 6.3 g/dL (5.7-8.2)
[2025-01-07 05:40] LABS: Bilirubin, Total 0.3 mg/dL (0.2-1.0)
[2025-01-07 05:53] LABS: Alanine Aminotransferase < 9 U/L (7-40); Albumin 3.1 g/dL (3.2-4.8); Aspartate Aminotransferase 12 U/L (13-40); Blood Urea Nitrogen 73 mg/dL (9-23); Calcium 8.5 mg/dL (8.7-10.4); Carbon Dioxide 33 mmol/L (20-31)
[2025-01-07 11:56] LABS: INR 1.09 (0.9-1.15); Prothrombin Time 11.5 sec (9.3-11.8)
--- NOTE | 2025-01-07 12:18 | DVHPN2 ---
Subjective Patient extremely lethargic today Unable to open her eyes. Not able to answer questions No more symptoms of diarrhea per RN Changes from previous H/P or p: Changes (Patient with increased lethargy) Eyes: No Pain, No Vision change, No Conjunctivae inflammation, No Eyelid inflammation, No Other, No Redness ENT: No Ear pain, No Ear discharge, No Nose pain, No Nose discharge, No Nose congestion, No Mouth pain, No Mouth swelling, No Throat pain, No Throat swelling, No Other Cardiovascular: No Chest Pain, No Palpitations, No Orthopnea, No Paroxysmal Noc. Dyspnea, No Edema, No Lt Headedness, No Other Respiratory: No Cough, No Dry, No Shortness of breath, No SOB with excertion, No Wheezing, No Hemoptysis, No Pleuritic Pain, No Sputum, No Other Gastrointestinal: No Nausea, No Vomiting; Abdominal Pain, Diarrhea (black stool); No Constipation, No Melena, No Hematochezia, No Other Genitourinary: No Dysuria, No Frequency, No Incontinence, No Hematuria, No Retention, No Other Musculoskeletal: No other, No neck pain, No shoulder pain, No arm pain, No back pain, No hand pain, No leg pain, No foot pain Skin: No Rash, No Lesions, No Jaundice, No Bruising, No Other Objective Vitals Vital Signs Date Time Temp Pulse Resp B/P (MAP) Pulse Ox O2 Delivery O2 Flow Rate FiO2 01/07/25 08:47 98.0 54 16 125/64 (84) 95 98.0 01/07/25 08:03 Nasal Cannula* 3 32 Intake/Output Intake and Output 01/07/25 07:00 Intake Total 2510 ml Output Total 700 ml Balance 1810 ml Intake Oral 1200 ml IV Total 1310 ml Output Urine Total 700 ml # Bowel Movements 2 General Appearance: Alert, Other (Disoriented to time and place) Lungs: Clear to auscultation, Normal air movement, Other Cardiovascular: Regular rate, Normal S1, Normal S2, No murmurs, Gallops, Rubs, Other Abdomen: Normal bowel sounds, Soft, No tenderness, No hepatospenomegaly, No masses, Other Extremities: No edema Medications Current Medications Medications Dose Ordered Sig/Danna Route Start Time Stop Time Status Last Admin Dose Admin Ondansetron HCl 4 mg Q4HP PRN IV 01/04/25 15:15 Acetaminophen 650 mg Q6HP PRN PO 01/04/25 15:15 Ceftriaxone Sodium 50 ml @ 100 mls/hr DAILY@09 IV 01/05/25 09:00 01/07/25 08:56 100 MLS/HR Metronidazole 100 ml @ 100 mls/hr Q8HR IV 01/04/25 22:00 01/07/25 06:04 100 MLS/HR Gabapentin 100 mg TID PO 01/04/25 22:00 Hold Quetiapine Fumarate 50 mg HS PO 01/04/25 22:00 01/06/25 22:14 50 MG Carbidopa/Levodopa 1 tab TID PO 01/04/25 15:44 01/06/25 22:14 1 TAB Enalapril Maleate 10 mg DAILY PO 01/05/25 10:00 01/06/25 09:10 10 MG Diagnostic Test (Pha) 1 strip ACHS 01/04/25 22:00 01/07/25 06:55 1 STRIP Insulin Human Regular ACHS SC 01/04/25 22:00 01/06/25 22:26 2 UNITS Dextrose 50 ml UD PRN IV 01/04/25 18:00 Pantoprazole Sodium 40 mg BID IV 01/05/25 22:00 01/06/25 22:14 40 MG Sodium Chloride 1,000 ml @ 60 mls/hr [id number] IV 01/05/25 13:15 01/07/25 06:03 60 MLS/HR Morphine Sulfate 1 mg Q6HP PRN IV 01/05/25 13:15 01/06/25 13:35 1 MG Laboratory Results Laboratory Tests 01/07/25 04:50 Chemistry Test 01/07/25 04:50 Albumin 3.1 g/dL (3.2-4.8) L Calcium Level 8.5 mg/dL (8.7-10.4) L Magnesium Level 2.1 mg/dL (1.6-2.6) Total Protein 6.3 g/dL (5.7-8.2) Coagulation Test 01/07/25 11:23 Prothrombin Time 11.5 sec (9.3-11.8) Prothrombin Time INR 1.09 (0.9-1.15) LFT Test 01/07/25 04:50 Alanine Aminotransferase (ALT) < 9 U/L (7-40) Alkaline Phosphatase 60 U/L (46-116) Aspartate Amino Transferase (AST) 12 U/L (13-40) L Total Bilirubin 0.3 mg/dL (0.2-1.0) Urinalysis Test 01/04/25 22:39 Urine Color Dark-brown (Yellow) Urine Clarity Ex.turbid (Clear) Urine pH 6.0 (5.0-9.0) Urine Specific [place] 1.009 (1.001-1.035) Urine Protein 1+ (Negative) H Urine Ketones Negative (Negative) Urine Blood 2+ /uL (Negative) H Urine Nitrite Negative (Negative) Urine Bilirubin Negative (Negative) Urine Urobilinogen Normal mg/dL (Negative) Urine Leukocyte Esterase 3+ /uL (Negative) Urine RBC 174 /hpf (0 - 4) Urine WBC Clumps Present /hpf (None Seen) Urine Microscopic WBC 1105 /HPF (0-5) H Urine Squamous Epithelial Cells Mod /hpf (<5) Urine Bacteria Many /hpf (None Seen) H Urine Glucose Normal mg/dL (Normal) Microbiology Microbiology Date/Time Source Procedure Growth Status 01/06/25 14:01 Stool Stool Culture - Preliminary Resulted 01/06/25 14:01 Stool Shiga Toxin I & II Pending Resulted 01/05/25 05:10 Sacrum Gram Stain - Final Resulted 01/05/25 05:10 Sacrum Wound Culture - Preliminary Resulted 01/04/25 22:39 Urine - Catheterized Urine Culture - Preliminary Resulted 01/04/25 12:43 Blood Blood Culture - Preliminary NO GROWTH AFTER 48 HOURS OF INCUBATION. Resulted Labs and/or images reviewed: Labs reviewed by me, Image(s) reviewed by me Assessment/Plan Assessment/Plan Stercoral colitis MARTÍNEZ Pneumonia Dysphagia Altered mental status Heme-positive stool Melena Anemia of chronic disease Plan: Discussed with Dr. Alexandra Monitor labs Continue antibiotics Protonix In view of patient's increased lethargy, we will continue to monitor the patient, and we will defer EGD at this time Plan discussed with: Other (Hospitalist Dr. Covarrubias and RN) Date of Service: January 07, 2025 Billing Provider: SYBIL BENAVIDES Common Visit Codes: [id number] INP/OBS CARE(HIGH) SYBIL BENAVIDES January 07, 2025 12:18
--- NOTE | 2025-01-07 16:28 | DVHPN2 ---
Subjective More lethargic today Changes from previous H/P or p: Changes Eyes: No Pain, No Vision change, No Conjunctivae inflammation, No Eyelid inflammation, No Other, No Redness ENT: No Ear pain, No Ear discharge, No Nose pain, No Nose discharge, No Nose congestion, No Mouth pain, No Mouth swelling, No Throat pain, No Throat swelling, No Other Cardiovascular: No Chest Pain, No Palpitations, No Orthopnea, No Paroxysmal Noc. Dyspnea, No Edema, No Lt Headedness, No Other Respiratory: No Cough, No Dry, No Shortness of breath, No SOB with excertion, No Wheezing, No Hemoptysis, No Pleuritic Pain, No Sputum, No Other Gastrointestinal: No Nausea, No Vomiting; Abdominal Pain, Diarrhea (black stool); No Constipation, No Melena, No Hematochezia, No Other Genitourinary: No Dysuria, No Frequency, No Incontinence, No Hematuria, No Retention, No Other Musculoskeletal: No other, No neck pain, No shoulder pain, No arm pain, No back pain, No hand pain, No leg pain, No foot pain Skin: No Rash, No Lesions, No Jaundice, No Bruising, No Other Objective Vitals Vital Signs Date Time Temp Pulse Resp B/P (MAP) Pulse Ox O2 Delivery O2 Flow Rate FiO2 01/07/25 14:28 133/89 01/07/25 13:00 98.1 68 16 100 98.1 01/07/25 08:03 Nasal Cannula* 3 32 Intake/Output Intake and Output 01/07/25 07:00 Intake Total 2510 ml Output Total 700 ml Balance 1810 ml Intake Oral 1200 ml IV Total 1310 ml Output Urine Total 700 ml # Bowel Movements 2 General Appearance: Alert, Other (Disoriented to time and place) Lungs: Clear to auscultation, Normal air movement, Other Cardiovascular: Regular rate, Normal S1, Normal S2, No murmurs, Gallops, Rubs, Other Abdomen: Normal bowel sounds, Soft, No tenderness, No hepatospenomegaly, No masses, Other Extremities: No edema Medications Current Medications Medications Dose Ordered Sig/Danna Route Start Time Stop Time Status Last Admin Dose Admin Ondansetron HCl 4 mg Q4HP PRN IV 01/04/25 15:15 Acetaminophen 650 mg Q6HP PRN PO 01/04/25 15:15 Ceftriaxone Sodium 50 ml @ 100 mls/hr DAILY@09 IV 01/05/25 09:00 01/07/25 08:56 100 MLS/HR Metronidazole 100 ml @ 100 mls/hr Q8HR IV 01/04/25 22:00 01/07/25 14:28 100 MLS/HR Gabapentin 100 mg TID PO 01/04/25 22:00 Hold Quetiapine Fumarate 50 mg HS PO 01/04/25 22:00 01/06/25 22:14 50 MG Carbidopa/Levodopa 1 tab TID PO 01/04/25 15:44 01/07/25 14:32 1 TAB Enalapril Maleate 10 mg DAILY PO 01/05/25 10:00 01/07/25 14:28 10 MG Diagnostic Test (Pha) 1 strip ACHS 01/04/25 22:00 01/07/25 11:30 1 STRIP Insulin Human Regular ACHS SC 01/04/25 22:00 01/06/25 22:26 2 UNITS Dextrose 50 ml UD PRN IV 01/04/25 18:00 Pantoprazole Sodium 40 mg BID IV 01/05/25 22:00 01/07/25 14:28 40 MG Sodium Chloride 1,000 ml @ 60 mls/hr [id number] IV 01/05/25 13:15 01/07/25 06:03 60 MLS/HR Morphine Sulfate 1 mg Q6HP PRN IV 01/05/25 13:15 01/06/25 13:35 1 MG Laboratory Results Laboratory Tests 01/07/25 04:50 Chemistry Test 01/07/25 04:50 Albumin 3.1 g/dL (3.2-4.8) L Calcium Level 8.5 mg/dL (8.7-10.4) L Magnesium Level 2.1 mg/dL (1.6-2.6) Total Protein 6.3 g/dL (5.7-8.2) Coagulation Test 01/07/25 11:23 Prothrombin Time 11.5 sec (9.3-11.8) Prothrombin Time INR 1.09 (0.9-1.15) LFT Test 01/07/25 04:50 Alanine Aminotransferase (ALT) < 9 U/L (7-40) Alkaline Phosphatase 60 U/L (46-116) Aspartate Amino Transferase (AST) 12 U/L (13-40) L Total Bilirubin 0.3 mg/dL (0.2-1.0) Urinalysis Test 01/04/25 22:39 Urine Color Dark-brown (Yellow) Urine Clarity Ex.turbid (Clear) Urine pH 6.0 (5.0-9.0) Urine Specific [place] 1.009 (1.001-1.035) Urine Protein 1+ (Negative) H Urine Ketones Negative (Negative) Urine Blood 2+ /uL (Negative) H Urine Nitrite Negative (Negative) Urine Bilirubin Negative (Negative) Urine Urobilinogen Normal mg/dL (Negative) Urine Leukocyte Esterase 3+ /uL (Negative) Urine RBC 174 /hpf (0 - 4) Urine WBC Clumps Present /hpf (None Seen) Urine Microscopic WBC 1105 /HPF (0-5) H Urine Squamous Epithelial Cells Mod /hpf (<5) Urine Bacteria Many /hpf (None Seen) H Urine Glucose Normal mg/dL (Normal) Microbiology Microbiology Date/Time Source Procedure Growth Status 01/06/25 14:01 Stool Clostridium difficile Toxin Assay - Final Complete 01/05/25 05:10 Sacrum Gram Stain - Final Complete 01/05/25 05:10 Sacrum Wound Culture - Final Complete 01/04/25 22:39 Urine - Catheterized Urine Culture - Preliminary Resulted 01/04/25 12:43 Blood Blood Culture - Preliminary NO GROWTH AFTER 72 HOURS OF INCUBATION. Resulted Assessment/Plan Assessment/Plan Acute metabolic encephalopathy Diarrhea rule out C diff colitis Rule out GI bleed Left lower lobe pneumonia Acute kidney injury due to vasomotor nephropathy Dehydration Alzheimer's dementia Parkinson's disease Type 2 diabetes History of hypertension History of congestive heart failure Dyslipidemia Cholelithiasis Dysphagia Generalized weakness Bed-bound UTI Plan Empirical broad-spectrum antibiotics with Rocephin and Flagyl NPO Swallow eval Get the stool specimen for guaiac which was positive Send the stools also for C diff and culture GI consult IV Protonix IV fluids Hold unnecessary p.o. medications Full code Advance directives discussed for 20 minutes Care plan was discussed with the daughter at the bedside 01/06/2025: Continue IV antibiotics Continue IV fluids normal saline at 60 mL an hour Continue the current management No diarrhea anymore so the C diff was not done The patient had positive guaiac stools, the GI consult is appreciated, recommendation is for conservative treatment with proton pump inhibitors and clear liquid diet and monitor Avoid aspirin and NSAIDs Avoids blood thinners Monitor closely 01/07/25: Lethargy: Discontinue all medications that might contribute including quetiapine and gabapentin C diff colitis: Continue metronidazole, Start p.o. vancomycin Pneumonia: Continue Rocephin Resume her diet Hold off GI intervention for now since she is not stable enough Monitor closely The rest of the management will depend on the hospital course Plan discussed with: Other Date of Service: January 07, 2025 Billing Provider: BEKA BOOKER MD Common Visit Codes: [id number] INP/OBS CARE(HIGH) BEKA BOOKER MD January 07, 2025 16:28
[2025-01-07] MEDS: VANCOMYCIN HCL 125 MG CAP PO SCH (17:43)
[2025-01-07] MEDS: ACETAMINOPHEN 325 MG TAB PO PRN (20:48)
[2025-01-08] VITALS (8 sets, daily range): BP systolic 101–133; BP diastolic 52–67; PULSE 59–93; RESP 16–18; TEMP 97.4–98.7; O2SAT 95–100
[2025-01-08 08:01] LABS: Eosinophils # (auto) 0.2 10 ^3/uL (0-0.8); Hematocrit 24.2 % (36.0-46.0); Hemoglobin 8.3 g/dL (12.2-16.2); Lymphocytes # (auto) 0.9 10 ^3/uL (0.4-5.4); Mean Corpuscular Hgb Conc. 34.3 g/dL (32.0-36.0); Monocytes # (auto) 0.7 10 ^3/uL (0-1.3); Neutrophils % (auto) 79.6 % (37.0-80.0)
[2025-01-08 08:03] LABS: Basophils # (auto) 0 10 ^3/uL (0-0.2); Basophils % (auto) 0.5 % (0.0-2.0); Eosinophils % (auto) 2.7 % (0.0-7.0); Lymphocytes % (auto) 9.6 % (10.0-50.0); Mean Corpuscular Hemoglobin 30.8 pg (28.0-32.0); Mean Corpuscular Volume 89.8 fL (80.0-100.0); Monocytes % (auto) 7.6 % (0.0-12.0); Neutrophils # (auto) 7.1 10 ^3/uL (1.6-8.6); Nucleated Red Blood Cells % 0.1 %; Platelet Count (auto) 315 10^3/uL (140-450); Red Cell Distribution Width 13.6 % (11.8-14.3)
[2025-01-08 08:22] LABS: Alkaline Phosphatase 59 U/L (46-116); Anion Gap 8 (5-15); BUN/Creatinine Ratio 68.7 (10.0-20.0); Bilirubin, Total 0.3 mg/dL (0.2-1.0); Calcium 8.9 mg/dL (8.7-10.4); Chloride 103 mmol/L (98-107); Magnesium 1.9 mg/dL (1.6-2.6); Potassium 3.8 mmol/L (3.5-5.1); Sodium 142 mmol/L (136-145); Total Protein 5.9 g/dL (5.7-8.2)
[2025-01-08 08:30] LABS: Alanine Aminotransferase < 9 U/L (7-40); Albumin 2.9 g/dL (3.2-4.8); Aspartate Aminotransferase 13 U/L (13-40); Blood Urea Nitrogen 68 mg/dL (9-23); Carbon Dioxide 31 mmol/L (20-31); Glucose 106 mg/dL (74-106)
--- NOTE | 2025-01-08 10:36 | DVHPN2 ---
Subjective No problems Alert and answering questions Changes from previous H/P or p: Changes Eyes: No Pain, No Vision change, No Conjunctivae inflammation, No Eyelid inflammation, No Other, No Redness ENT: No Ear pain, No Ear discharge, No Nose pain, No Nose discharge, No Nose congestion, No Mouth pain, No Mouth swelling, No Throat pain, No Throat swelling, No Other Cardiovascular: No Chest Pain, No Palpitations, No Orthopnea, No Paroxysmal Noc. Dyspnea, No Edema, No Lt Headedness, No Other Respiratory: No Cough, No Dry, No Shortness of breath, No SOB with excertion, No Wheezing, No Hemoptysis, No Pleuritic Pain, No Sputum, No Other Gastrointestinal: No Nausea, No Vomiting; Abdominal Pain, Diarrhea (black stool); No Constipation, No Melena, No Hematochezia, No Other Genitourinary: No Dysuria, No Frequency, No Incontinence, No Hematuria, No Retention, No Other Musculoskeletal: No other, No neck pain, No shoulder pain, No arm pain, No back pain, No hand pain, No leg pain, No foot pain Skin: No Rash, No Lesions, No Jaundice, No Bruising, No Other Objective Vitals Vital Signs Date Time Temp Pulse Resp B/P (MAP) Pulse Ox O2 Delivery O2 Flow Rate FiO2 01/08/25 10:14 133/62 01/08/25 08:31 98.0 60 16 100 98.0 01/07/25 20:00 Nasal Cannula* 3 32 Intake/Output Intake and Output 01/08/25 07:00 Intake Total 2500 ml Output Total 1000 ml Balance 1500 ml Intake Oral 1050 ml IV Total 1450 ml Output Urine Total 1000 ml # Bowel Movements 3 General Appearance: Alert, Other (Disoriented to time and place) Lungs: Clear to auscultation, Normal air movement, Other Cardiovascular: Regular rate, Normal S1, Normal S2, No murmurs, Gallops, Rubs, Other Abdomen: Normal bowel sounds, Soft, No tenderness, No hepatospenomegaly, No masses, Other Extremities: No edema Medications Current Medications Medications Dose Ordered Sig/Danna Route Start Time Stop Time Status Last Admin Dose Admin Ondansetron HCl 4 mg Q4HP PRN IV 01/04/25 15:15 Acetaminophen 650 mg Q6HP PRN PO 01/04/25 15:15 01/08/25 06:41 650 MG Ceftriaxone Sodium 50 ml @ 100 mls/hr DAILY@09 IV 01/05/25 09:00 01/08/25 10:14 100 MLS/HR Metronidazole 100 ml @ 100 mls/hr Q8HR IV 01/04/25 22:00 01/08/25 06:42 100 MLS/HR Carbidopa/Levodopa 1 tab TID PO 01/04/25 15:44 01/08/25 06:41 1 TAB Enalapril Maleate 10 mg DAILY PO 01/05/25 10:00 01/08/25 10:14 10 MG Diagnostic Test (Pha) 1 strip ACHS 01/04/25 22:00 01/08/25 06:57 1 STRIP Insulin Human Regular ACHS SC 01/04/25 22:00 01/08/25 06:55 2 UNITS Dextrose 50 ml UD PRN IV 01/04/25 18:00 Pantoprazole Sodium 40 mg BID IV 01/05/25 22:00 01/08/25 10:14 40 MG Sodium Chloride 1,000 ml @ 60 mls/hr [id number] IV 01/05/25 13:15 01/07/25 22:45 60 MLS/HR Vancomycin HCl 125 mg QID PO 01/07/25 18:00 01/08/25 06:41 125 MG Laboratory Results Laboratory Tests 01/08/25 07:30 Chemistry Test 01/08/25 07:30 Albumin 2.9 g/dL (3.2-4.8) L Calcium Level 8.9 mg/dL (8.7-10.4) Magnesium Level 1.9 mg/dL (1.6-2.6) Total Protein 5.9 g/dL (5.7-8.2) Coagulation Test 01/07/25 11:23 Prothrombin Time 11.5 sec (9.3-11.8) Prothrombin Time INR 1.09 (0.9-1.15) LFT Test 01/08/25 07:30 Alanine Aminotransferase (ALT) < 9 U/L (7-40) Alkaline Phosphatase 59 U/L (46-116) Aspartate Amino Transferase (AST) 13 U/L (13-40) Total Bilirubin 0.3 mg/dL (0.2-1.0) Urinalysis Test 01/04/25 22:39 Urine Color Dark-brown (Yellow) Urine Clarity Ex.turbid (Clear) Urine pH 6.0 (5.0-9.0) Urine Specific [place] 1.009 (1.001-1.035) Urine Protein 1+ (Negative) H Urine Ketones Negative (Negative) Urine Blood 2+ /uL (Negative) H Urine Nitrite Negative (Negative) Urine Bilirubin Negative (Negative) Urine Urobilinogen Normal mg/dL (Negative) Urine Leukocyte Esterase 3+ /uL (Negative) Urine RBC 174 /hpf (0 - 4) Urine WBC Clumps Present /hpf (None Seen) Urine Microscopic WBC 1105 /HPF (0-5) H Urine Squamous Epithelial Cells Mod /hpf (<5) Urine Bacteria Many /hpf (None Seen) H Urine Glucose Normal mg/dL (Normal) Microbiology Microbiology Date/Time Source Procedure Growth Status 01/06/25 14:01 Stool Clostridium difficile Toxin Assay - Final Complete 01/05/25 05:10 Sacrum Gram Stain - Final Complete 01/05/25 05:10 Sacrum Wound Culture - Final Complete 01/04/25 22:39 Urine - Catheterized Urine Culture - Preliminary Resulted 01/04/25 12:43 Blood Blood Culture - Preliminary NO GROWTH AFTER 72 HOURS OF INCUBATION. Resulted Assessment/Plan Assessment/Plan Acute metabolic encephalopathy Diarrhea rule out C diff colitis Rule out GI bleed Left lower lobe pneumonia Acute kidney injury due to vasomotor nephropathy Dehydration Alzheimer's dementia Parkinson's disease Type 2 diabetes History of hypertension History of congestive heart failure Dyslipidemia Cholelithiasis Dysphagia Generalized weakness Bed-bound UTI Plan Empirical broad-spectrum antibiotics with Rocephin and Flagyl NPO Swallow eval Get the stool specimen for guaiac which was positive Send the stools also for C diff and culture GI consult IV Protonix IV fluids Hold unnecessary p.o. medications Full code Advance directives discussed for 20 minutes Care plan was discussed with the daughter at the bedside 01/06/2025: Continue IV antibiotics Continue IV fluids normal saline at 60 mL an hour Continue the current management No diarrhea anymore so the C diff was not done The patient had positive guaiac stools, the GI consult is appreciated, recommendation is for conservative treatment with proton pump inhibitors and clear liquid diet and monitor Avoid aspirin and NSAIDs Avoids blood thinners Monitor closely 01/07/25: Lethargy: Discontinue all medications that might contribute including quetiapine and gabapentin C diff colitis: Continue metronidazole, Start p.o. vancomycin Pneumonia: Continue Rocephin Resume her diet Hold off GI intervention for now since she is not stable enough Monitor closely The rest of the management will depend on the hospital course 01/08/2025: C diff colitis: Continue p.o. vanco and IV metronidazole Pneumonia: Continue Rocephin Continue monitoring Plan discussed with: Patient, Other My Orders Orders - BEKA BOOKER MD Procedure Category Date Status Time Vancomycin Po PHA 01/07/25 In Process 18:00 Date of Service: January 08, 2025 Billing Provider: BEKA BOOKER MD Common Visit Codes: [id number] INP/OBS CARE(HIGH) BEKA BOOKER MD January 08, 2025 10:36
--- NOTE | 2025-01-08 15:53 | DVHPN2 ---
Progress Note - Dictate Date Seen: January 08, 2025 Medical Necessity Reason Pt with a Central, PICC or Fol: No Subjective Patient continues to be lethargic Stool for occult blood was positive Stool for C diff was positive Diarrhea is improving No active GI bleeding is reported at this time vital signs Vital Sign Date Time Temp Pulse Resp B/P (MAP) Pulse Ox O2 Delivery O2 Flow Rate FiO2 01/08/25 13:00 98.1 59 16 131/60 (83) 99 98.1 01/08/25 08:00 Nasal Cannula* 3 32 Total Intake and Output 01/07/25 01/07/25 01/08/25 15:00 23:00 07:00 Intake Total 1450 ml 1050 ml Output Total 600 ml 400 ml Balance 850 ml 650 ml medications Current Medications Medications Dose Ordered Sig/Danna Route Start Time Stop Time Status Last Admin Dose Admin Ondansetron HCl 4 mg Q4HP PRN IV 01/04/25 15:15 Acetaminophen 650 mg Q6HP PRN PO 01/04/25 15:15 01/08/25 06:41 650 MG Ceftriaxone Sodium 50 ml @ 100 mls/hr DAILY@09 IV 01/05/25 09:00 01/08/25 10:14 100 MLS/HR Metronidazole 100 ml @ 100 mls/hr Q8HR IV 01/04/25 22:00 01/08/25 15:27 100 MLS/HR Carbidopa/Levodopa 1 tab TID PO 01/04/25 15:44 01/08/25 15:27 1 TAB Enalapril Maleate 10 mg DAILY PO 01/05/25 10:00 01/08/25 10:14 10 MG Diagnostic Test (Pha) 1 strip ACHS 01/04/25 22:00 01/08/25 12:46 1 STRIP Insulin Human Regular ACHS SC 01/04/25 22:00 01/08/25 06:55 2 UNITS Dextrose 50 ml UD PRN IV 01/04/25 18:00 Pantoprazole Sodium 40 mg BID IV 01/05/25 22:00 01/08/25 10:14 40 MG Sodium Chloride 1,000 ml @ 60 mls/hr [id number] IV 01/05/25 13:15 01/07/25 22:45 60 MLS/HR Vancomycin HCl 125 mg QID PO 01/08/25 18:00 UNV objective General Appearance: Alert, Other (Disoriented to time and place) Lungs: Clear to auscultation, Normal air movement, Other Cardiovascular: Regular rate, Normal S1, Normal S2, No murmurs, Gallops, Rubs, Other Abdomen: Normal bowel sounds, Soft, No tenderness, No hepatospenomegaly, No masses, Other Extremities: No edema laboratory and microbiology Laboratory Tests 01/08/25 07:30 Test 01/08/25 07:30 Range/Units Serum Glucose 106 74-106 mg/dL Problems(with codes): (1) C. difficile diarrhea (2) Anemia of chronic disease (3) Heme + stool (4) Melena Prognosis Plan Vancomycin 125 mg p.o. q.6 hours Give her probiotics Patient is also currently on IV Flagyl Diet as tolerated; swallow evaluation I will be standing by for an endoscopy once patient is more stable If required an NG tube can be inserted and patient can be given NG tube feedings Dietary Evaluation Review Comments: 1. Currently on Clear Liquid diet, advance as tolerated pending [employer] rec's 2. Pt not to go >5 days NPO/CL only -> (Currently Day 1) 3. Will add Ensure Clear TID in the interim to optimize oral nutrition (provides 240 kcal, 8 gm pro per carton) 4. Daily wt's to trend while inpatient Expected Outcomes/Goals: Improved nutritional status, diet progression. Food and Nutrition Intake (Sev: <50% est energy req 5days Interpretation of weight loss: >5% in 1 month Protein Calorie Malnutrition: Severe Is there a minimum of two crit: Yes Plan discussed with: Other (Cassandra Louie) LONNIE ECHOLS MD January 08, 2025 15:53
[2025-01-08] MEDS ORDERED: VANCOMYCIN HCL 125 MG CAP PO SCH (18:00)
[2025-01-08] MEDS: VANCOMYCIN HCL 125 MG CAP PO SCH (19:38)
[2025-01-09 00:59] VITALS: BP 109/58; PULSE 66; RESP 18; TEMP 98.3; O2SAT 100
[2025-01-09 04:58] VITALS: BP 123/61; PULSE 70; RESP 18; TEMP 98.4; O2SAT 97
[2025-01-09] MEDS: FLORASTOR (S. BOULARDII) 250 MG CAP PO SCH (08:33)
[2025-01-09 09:00] VITALS: BP 125/56; PULSE 69; RESP 16; TEMP 98; O2SAT 100
--- NOTE | 2025-01-09 11:39 | DVHPN2 ---
Subjective No problems Alert and answering questions More alert Still having diarrhea Changes from previous H/P or p: Changes Eyes: No Pain, No Vision change, No Conjunctivae inflammation, No Eyelid inflammation, No Other, No Redness ENT: No Ear pain, No Ear discharge, No Nose pain, No Nose discharge, No Nose congestion, No Mouth pain, No Mouth swelling, No Throat pain, No Throat swelling, No Other Cardiovascular: No Chest Pain, No Palpitations, No Orthopnea, No Paroxysmal Noc. Dyspnea, No Edema, No Lt Headedness, No Other Respiratory: No Cough, No Dry, No Shortness of breath, No SOB with excertion, No Wheezing, No Hemoptysis, No Pleuritic Pain, No Sputum, No Other Gastrointestinal: No Nausea, No Vomiting; Abdominal Pain, Diarrhea (black stool); No Constipation, No Melena, No Hematochezia, No Other Genitourinary: No Dysuria, No Frequency, No Incontinence, No Hematuria, No Retention, No Other Musculoskeletal: No other, No neck pain, No shoulder pain, No arm pain, No back pain, No hand pain, No leg pain, No foot pain Skin: No Rash, No Lesions, No Jaundice, No Bruising, No Other Objective Vitals Vital Signs Date Time Temp Pulse Resp B/P (MAP) Pulse Ox O2 Delivery O2 Flow Rate FiO2 01/09/25 09:00 98.0 69 16 125/56 (79) 100 98.0 01/08/25 20:00 Nasal Cannula* 3 32 Intake/Output Intake and Output 01/09/25 07:00 Intake Total 3560 ml Output Total 700 ml Balance 2860 ml Intake Oral 1350 ml IV Total 2210 ml Output Urine Total 700 ml # Bowel Movements 3 General Appearance: Alert, Other (Disoriented to time and place) Lungs: Clear to auscultation, Normal air movement, Other Cardiovascular: Regular rate, Normal S1, Normal S2, No murmurs, Gallops, Rubs, Other Abdomen: Normal bowel sounds, Soft, No tenderness, No hepatospenomegaly, No masses, Other Extremities: No edema Medications Current Medications Medications Dose Ordered Sig/Danna Route Start Time Stop Time Status Last Admin Dose Admin Ondansetron HCl 4 mg Q4HP PRN IV 01/04/25 15:15 Acetaminophen 650 mg Q6HP PRN PO 01/04/25 15:15 01/09/25 08:31 650 MG Ceftriaxone Sodium 50 ml @ 100 mls/hr DAILY@09 IV 01/05/25 09:00 01/09/25 08:32 100 MLS/HR Metronidazole 100 ml @ 100 mls/hr Q8HR IV 01/04/25 22:00 01/09/25 05:42 100 MLS/HR Carbidopa/Levodopa 1 tab TID PO 01/04/25 15:44 01/09/25 05:41 1 TAB Enalapril Maleate 10 mg DAILY PO 01/05/25 10:00 01/09/25 08:32 10 MG Diagnostic Test (Pha) 1 strip ACHS 01/04/25 22:00 01/09/25 05:31 1 STRIP Insulin Human Regular ACHS SC 01/04/25 22:00 01/08/25 06:55 2 UNITS Dextrose 50 ml UD PRN IV 01/04/25 18:00 Pantoprazole Sodium 40 mg BID IV 01/05/25 22:00 01/09/25 08:31 40 MG Sodium Chloride 1,000 ml @ 60 mls/hr [id number] IV 01/05/25 13:15 01/09/25 02:00 60 MLS/HR Saccharomyces Boulardii 250 mg DAILY PO 01/09/25 10:00 01/09/25 08:33 250 MG Vancomycin HCl 125 mg QID PO 01/08/25 19:01 01/09/25 05:41 125 MG Laboratory Results Laboratory Tests 01/08/25 07:30 Urinalysis Test 01/04/25 22:39 Urine Color Dark-brown (Yellow) Urine Clarity Ex.turbid (Clear) Urine pH 6.0 (5.0-9.0) Urine Specific [place] 1.009 (1.001-1.035) Urine Protein 1+ (Negative) H Urine Ketones Negative (Negative) Urine Blood 2+ /uL (Negative) H Urine Nitrite Negative (Negative) Urine Bilirubin Negative (Negative) Urine Urobilinogen Normal mg/dL (Negative) Urine Leukocyte Esterase 3+ /uL (Negative) Urine RBC 174 /hpf (0 - 4) Urine WBC Clumps Present /hpf (None Seen) Urine Microscopic WBC 1105 /HPF (0-5) H Urine Squamous Epithelial Cells Mod /hpf (<5) Urine Bacteria Many /hpf (None Seen) H Urine Glucose Normal mg/dL (Normal) Microbiology Microbiology Date/Time Source Procedure Growth Status 01/06/25 14:01 Stool Clostridium difficile Toxin Assay - Final Complete 01/05/25 05:10 Sacrum Gram Stain - Final Complete 01/05/25 05:10 Sacrum Wound Culture - Final Complete 01/04/25 22:39 Urine - Catheterized Urine Culture - Final Yeast, not Elma albicans Complete 01/04/25 12:43 Blood Blood Culture - Preliminary NO GROWTH AFTER 72 HOURS OF INCUBATION. Resulted Assessment/Plan Assessment/Plan Acute metabolic encephalopathy Diarrhea rule out C diff colitis Rule out GI bleed Left lower lobe pneumonia Acute kidney injury due to vasomotor nephropathy Dehydration Alzheimer's dementia Parkinson's disease Type 2 diabetes History of hypertension History of congestive heart failure Dyslipidemia Cholelithiasis Dysphagia Generalized weakness Bed-bound UTI Plan Empirical broad-spectrum antibiotics with Rocephin and Flagyl NPO Swallow eval Get the stool specimen for guaiac which was positive Send the stools also for C diff and culture GI consult IV Protonix IV fluids Hold unnecessary p.o. medications Full code Advance directives discussed for 20 minutes Care plan was discussed with the daughter at the bedside 01/06/2025: Continue IV antibiotics Continue IV fluids normal saline at 60 mL an hour Continue the current management No diarrhea anymore so the C diff was not done The patient had positive guaiac stools, the GI consult is appreciated, recommendation is for conservative treatment with proton pump inhibitors and clear liquid diet and monitor Avoid aspirin and NSAIDs Avoids blood thinners Monitor closely 01/07/25: Lethargy: Discontinue all medications that might contribute including quetiapine and gabapentin C diff colitis: Continue metronidazole, Start p.o. vancomycin Pneumonia: Continue Rocephin Resume her diet Hold off GI intervention for now since she is not stable enough Monitor closely The rest of the management will depend on the hospital course 01/08/2025: C diff colitis: Continue p.o. vanco and IV metronidazole Pneumonia: Continue Rocephin Continue monitoring 01/09/2025: Continue p.o. vancomycin and IV metronidazole Continue supplements Continue diet pureed Monitor closely Plan discussed with: Patient, Daughter, Other My Orders Orders - BEKA BOOKER MD Procedure Category Date Status Time Vancomycin Po PHA 01/08/25 In Process 19:01 Date of Service: January 09, 2025 Billing Provider: BEKA BOOKER MD Common Visit Codes: [id number] INP/OBS CARE(HIGH) BEKA BOOKER MD January 09, 2025 11:39
--- NOTE | 2025-01-09 12:43 | DVHPN2 ---
Progress Note - Dictate Date Seen: January 09, 2025 Medical Necessity Reason Pt with a Central, PICC or Fol: No Subjective Patient is more awake and alert Undergoing dressing changing Stool for occult blood was positive Stool for C diff was positive Ongoing loose stools; three bowel movements record No active GI bleeding is reported at this time vital signs Vital Sign Date Time Temp Pulse Resp B/P (MAP) Pulse Ox O2 Delivery O2 Flow Rate FiO2 01/09/25 09:00 98.0 69 16 125/56 (79) 100 98.0 01/08/25 20:00 Nasal Cannula* 3 32 Total Intake and Output 01/08/25 01/08/25 01/09/25 15:00 23:00 07:00 Intake Total 150 ml 1520 ml 1890 ml Output Total 450 ml 250 ml Balance 150 ml 1070 ml 1640 ml medications Current Medications Medications Dose Ordered Sig/Danna Route Start Time Stop Time Status Last Admin Dose Admin Ondansetron HCl 4 mg Q4HP PRN IV 01/04/25 15:15 Acetaminophen 650 mg Q6HP PRN PO 01/04/25 15:15 01/09/25 08:31 650 MG Ceftriaxone Sodium 50 ml @ 100 mls/hr DAILY@09 IV 01/05/25 09:00 01/09/25 08:32 100 MLS/HR Metronidazole 100 ml @ 100 mls/hr Q8HR IV 01/04/25 22:00 01/09/25 05:42 100 MLS/HR Carbidopa/Levodopa 1 tab TID PO 01/04/25 15:44 01/09/25 05:41 1 TAB Enalapril Maleate 10 mg DAILY PO 01/05/25 10:00 01/09/25 08:32 10 MG Diagnostic Test (Pha) 1 strip ACHS 01/04/25 22:00 01/09/25 05:31 1 STRIP Insulin Human Regular ACHS SC 01/04/25 22:00 01/08/25 06:55 2 UNITS Dextrose 50 ml UD PRN IV 01/04/25 18:00 Pantoprazole Sodium 40 mg BID IV 01/05/25 22:00 01/09/25 08:31 40 MG Sodium Chloride 1,000 ml @ 60 mls/hr [id number] IV 01/05/25 13:15 01/09/25 02:00 60 MLS/HR Saccharomyces Boulardii 250 mg DAILY PO 01/09/25 10:00 01/09/25 08:33 250 MG Vancomycin HCl 125 mg QID PO 01/08/25 19:01 01/09/25 05:41 125 MG objective General Appearance: Alert, Other (Disoriented to time and place) Lungs: Clear to auscultation, Normal air movement, Other Cardiovascular: Regular rate, Normal S1, Normal S2, No murmurs, Gallops, Rubs, Other Abdomen: Normal bowel sounds, Soft, No tenderness, No hepatospenomegaly, No masses, Other Extremities: No edema laboratory and microbiology Laboratory Tests 01/08/25 07:30 Test 01/08/25 07:30 Range/Units Serum Glucose 106 74-106 mg/dL Problems(with codes): (1) C. difficile diarrhea (2) Heme + stool (3) Anemia of chronic disease (4) Melena (5) AMS (altered mental status) (6) Dysphagia (7) Pneumonia involving left lung Prognosis Plan Continue Protonix 40 mg IV q.12 hours Carafate suspension 1 g 4 times a day Continue oral vancomycin Outpatient follow up with GI Services to discuss elective endoscopy in the future Advance diet as tolerated I will follow up patient with you Dietary Evaluation Review Comments: 1. Currently on Clear Liquid diet, advance as tolerated pending [employer] rec's 2. Pt not to go >5 days NPO/CL only -> (Currently Day 1) 3. Will add Ensure Clear TID in the interim to optimize oral nutrition (provides 240 kcal, 8 gm pro per carton) 4. Daily wt's to trend while inpatient Expected Outcomes/Goals: Improved nutritional status, diet progression. Food and Nutrition Intake (Sev: <50% est energy req 5days Interpretation of weight loss: >5% in 1 month Protein Calorie Malnutrition: Severe Is there a minimum of two crit: Yes Plan discussed with: Other (Nurse) LONNIE ECHOLS MD January 09, 2025 12:43
[2025-01-09 13:00] VITALS: BP 118/52; PULSE 48; RESP 16; TEMP 97.5; O2SAT 100
[2025-01-09 17:00] VITALS: BP 126/68; PULSE 75; RESP 16; TEMP 98.2; O2SAT 91
[2025-01-09 21:00] VITALS: BP 140/68; PULSE 75; RESP 16; TEMP 98.4; O2SAT 100
[2025-01-10] VITALS (8 sets, daily range): BP systolic 125–170; BP diastolic 60–77; PULSE 60–81; RESP 16–18; TEMP 97–98.2; O2SAT 90–100
--- NOTE | 2025-01-10 11:58 | DVHPN2 ---
Subjective Still having loose stools according to the nursing staff Changes from previous H/P or p: Changes Eyes: No Pain, No Vision change, No Conjunctivae inflammation, No Eyelid inflammation, No Other, No Redness ENT: No Ear pain, No Ear discharge, No Nose pain, No Nose discharge, No Nose congestion, No Mouth pain, No Mouth swelling, No Throat pain, No Throat swelling, No Other Cardiovascular: No Chest Pain, No Palpitations, No Orthopnea, No Paroxysmal Noc. Dyspnea, No Edema, No Lt Headedness, No Other Respiratory: No Cough, No Dry, No Shortness of breath, No SOB with excertion, No Wheezing, No Hemoptysis, No Pleuritic Pain, No Sputum, No Other Gastrointestinal: No Nausea, No Vomiting; Abdominal Pain, Diarrhea (black stool); No Constipation, No Melena, No Hematochezia, No Other Genitourinary: No Dysuria, No Frequency, No Incontinence, No Hematuria, No Retention, No Other Musculoskeletal: No other, No neck pain, No shoulder pain, No arm pain, No back pain, No hand pain, No leg pain, No foot pain Skin: No Rash, No Lesions, No Jaundice, No Bruising, No Other Objective Vitals Vital Signs Date Time Temp Pulse Resp B/P (MAP) Pulse Ox O2 Delivery O2 Flow Rate FiO2 01/10/25 09:24 144/67 01/10/25 09:00 98.0 72 16 90 98.0 01/09/25 20:00 Nasal Cannula* 3 32 Intake/Output Intake and Output 01/10/25 07:00 Intake Total 1290 ml Output Total 950 ml Balance 340 ml Intake Oral 1140 ml IV Total 150 ml Output Urine Total 950 ml # Bowel Movements 3 General Appearance: Alert, Other (Disoriented to time and place) Lungs: Clear to auscultation, Normal air movement, Other Cardiovascular: Regular rate, Normal S1, Normal S2, No murmurs, Gallops, Rubs, Other Abdomen: Normal bowel sounds, Soft, No tenderness, No hepatospenomegaly, No masses, Other Extremities: No edema Medications Current Medications Medications Dose Ordered Sig/Danna Route Start Time Stop Time Status Last Admin Dose Admin Ondansetron HCl 4 mg Q4HP PRN IV 01/04/25 15:15 Acetaminophen 650 mg Q6HP PRN PO 01/04/25 15:15 01/09/25 08:31 650 MG Ceftriaxone Sodium 50 ml @ 100 mls/hr DAILY@09 IV 01/05/25 09:00 01/10/25 09:23 100 MLS/HR Metronidazole 100 ml @ 100 mls/hr Q8HR IV 01/04/25 22:00 01/10/25 05:40 100 MLS/HR Carbidopa/Levodopa 1 tab TID PO 01/04/25 15:44 01/10/25 05:40 1 TAB Enalapril Maleate 10 mg DAILY PO 01/05/25 10:00 01/10/25 09:24 10 MG Diagnostic Test (Pha) 1 strip ACHS 01/04/25 22:00 01/10/25 11:56 1 STRIP Insulin Human Regular ACHS SC 01/04/25 22:00 01/08/25 06:55 2 UNITS Dextrose 50 ml UD PRN IV 01/04/25 18:00 Pantoprazole Sodium 40 mg BID IV 01/05/25 22:00 01/10/25 09:23 40 MG Sodium Chloride 1,000 ml @ 60 mls/hr [id number] IV 01/05/25 13:15 01/09/25 02:00 60 MLS/HR Saccharomyces Boulardii 250 mg DAILY PO 01/09/25 10:00 01/10/25 09:23 250 MG Vancomycin HCl 125 mg QID PO 01/08/25 19:01 01/09/25 23:18 125 MG Laboratory Results Laboratory Tests 01/08/25 07:30 Urinalysis Test 01/04/25 22:39 Urine Color Dark-brown (Yellow) Urine Clarity Ex.turbid (Clear) Urine pH 6.0 (5.0-9.0) Urine Specific [place] 1.009 (1.001-1.035) Urine Protein 1+ (Negative) H Urine Ketones Negative (Negative) Urine Blood 2+ /uL (Negative) H Urine Nitrite Negative (Negative) Urine Bilirubin Negative (Negative) Urine Urobilinogen Normal mg/dL (Negative) Urine Leukocyte Esterase 3+ /uL (Negative) Urine RBC 174 /hpf (0 - 4) Urine WBC Clumps Present /hpf (None Seen) Urine Microscopic WBC 1105 /HPF (0-5) H Urine Squamous Epithelial Cells Mod /hpf (<5) Urine Bacteria Many /hpf (None Seen) H Urine Glucose Normal mg/dL (Normal) Microbiology Microbiology Date/Time Source Procedure Growth Status 01/06/25 14:01 Stool Clostridium difficile Toxin Assay - Final Complete 01/05/25 05:10 Sacrum Gram Stain - Final Complete 01/05/25 05:10 Sacrum Wound Culture - Final Complete 01/04/25 22:39 Urine - Catheterized Urine Culture - Final Yeast, not Elma albicans Complete 01/04/25 12:43 Blood Blood Culture - Final NO GROWTH AFTER 5 DAYS OF INCUBATION. Complete Assessment/Plan Assessment/Plan Acute metabolic encephalopathy Diarrhea rule out C diff colitis Rule out GI bleed Left lower lobe pneumonia Acute kidney injury due to vasomotor nephropathy Dehydration Alzheimer's dementia Parkinson's disease Type 2 diabetes History of hypertension History of congestive heart failure Dyslipidemia Cholelithiasis Dysphagia Generalized weakness Bed-bound UTI Plan Empirical broad-spectrum antibiotics with Rocephin and Flagyl NPO Swallow eval Get the stool specimen for guaiac which was positive Send the stools also for C diff and culture GI consult IV Protonix IV fluids Hold unnecessary p.o. medications Full code Advance directives discussed for 20 minutes Care plan was discussed with the daughter at the bedside 01/06/2025: Continue IV antibiotics Continue IV fluids normal saline at 60 mL an hour Continue the current management No diarrhea anymore so the C diff was not done The patient had positive guaiac stools, the GI consult is appreciated, recommendation is for conservative treatment with proton pump inhibitors and clear liquid diet and monitor Avoid aspirin and NSAIDs Avoids blood thinners Monitor closely 01/07/25: Lethargy: Discontinue all medications that might contribute including quetiapine and gabapentin C diff colitis: Continue metronidazole, Start p.o. vancomycin Pneumonia: Continue Rocephin Resume her diet Hold off GI intervention for now since she is not stable enough Monitor closely The rest of the management will depend on the hospital course 01/08/2025: C diff colitis: Continue p.o. vanco and IV metronidazole Pneumonia: Continue Rocephin Continue monitoring 01/09/2025: Continue p.o. vancomycin and IV metronidazole Continue supplements Continue diet pureed Monitor closely 01/10/2025: Continue p.o. vancomycin and IV Flagyl Continue IV fluids Continue Rocephin for the pneumonia Monitor closely Plan discussed with: Patient Date of Service: January 10, 2025 Billing Provider: BEKA BOOKER MD Common Visit Codes: [id number] INP/OBS CARE(HIGH) BEKA BOOKER MD January 10, 2025 11:58
--- NOTE | 2025-01-10 20:19 | DVHPN2 ---
Progress Note - Dictate Date Seen: January 10, 2025 Medical Necessity Reason Pt with a Central, PICC or Fol: No Subjective Continued loose bowel movements 3-5 bowel movements recorded Stool for occult blood was positive Stool for C diff was positive No active GI bleeding is reported at this time vital signs Vital Sign Date Time Temp Pulse Resp B/P (MAP) Pulse Ox O2 Delivery O2 Flow Rate FiO2 01/10/25 17:00 97.0 71 18 170/76 (107) 100 97.0 01/10/25 08:00 Nasal Cannula* 3 32 Total Intake and Output 01/09/25 01/09/25 01/10/25 15:00 23:00 07:00 Intake Total 630 ml 600 ml 60 ml Output Total 600 ml 350 ml Balance 630 ml 0 ml -290 ml medications Current Medications Medications Dose Ordered Sig/Danna Route Start Time Stop Time Status Last Admin Dose Admin Ondansetron HCl 4 mg Q4HP PRN IV 01/04/25 15:15 Acetaminophen 650 mg Q6HP PRN PO 01/04/25 15:15 01/10/25 19:26 650 MG Ceftriaxone Sodium 50 ml @ 100 mls/hr DAILY@09 IV 01/05/25 09:00 01/10/25 09:23 100 MLS/HR Metronidazole 100 ml @ 100 mls/hr Q8HR IV 01/04/25 22:00 01/10/25 14:00 100 MLS/HR Carbidopa/Levodopa 1 tab TID PO 01/04/25 15:44 01/10/25 14:00 1 TAB Enalapril Maleate 10 mg DAILY PO 01/05/25 10:00 01/10/25 09:24 10 MG Diagnostic Test (Pha) 1 strip ACHS 01/04/25 22:00 01/10/25 17:00 1 STRIP Insulin Human Regular ACHS SC 01/04/25 22:00 01/08/25 06:55 2 UNITS Dextrose 50 ml UD PRN IV 01/04/25 18:00 Pantoprazole Sodium 40 mg BID IV 01/05/25 22:00 01/10/25 09:23 40 MG Sodium Chloride 1,000 ml @ 60 mls/hr [id number] IV 01/05/25 13:15 01/09/25 02:00 60 MLS/HR Saccharomyces Boulardii 250 mg DAILY PO 01/09/25 10:00 01/10/25 09:23 250 MG Vancomycin HCl 125 mg QID PO 01/08/25 19:01 01/10/25 18:00 125 MG objective General Appearance: Alert, Other (Disoriented to time and place) Lungs: Clear to auscultation, Normal air movement, Other Cardiovascular: Regular rate, Normal S1, Normal S2, No murmurs, Gallops, Rubs, Other Abdomen: Normal bowel sounds, Soft, No tenderness, No hepatospenomegaly, No masses, Other Extremities: No edema laboratory and microbiology Laboratory Tests 01/08/25 07:30 Test 01/08/25 07:30 Range/Units Serum Glucose 106 74-106 mg/dL Problems(with codes): (1) C. difficile diarrhea (2) Heme + stool (3) Anemia of chronic disease (4) Melena (5) AMS (altered mental status) Prognosis Plan Continue oral vancomycin and IV Flagyl Nutritional support Questran 4 g packet p.o. daily Monitor labs I will follow up Dietary Evaluation Review Comments: 1. Currently on Clear Liquid diet, advance as tolerated pending [employer] rec's 2. Pt not to go >5 days NPO/CL only -> (Currently Day 1) 3. Will add Ensure Clear TID in the interim to optimize oral nutrition (provides 240 kcal, 8 gm pro per carton) 4. Daily wt's to trend while inpatient Expected Outcomes/Goals: Improved nutritional status, diet progression. Food and Nutrition Intake (Sev: <50% est energy req 5days Interpretation of weight loss: >5% in 1 month Protein Calorie Malnutrition: Severe Is there a minimum of two crit: Yes Plan discussed with: Other (None) LONNIE ECHOLS MD January 10, 2025 20:19
[2025-01-11 01:00] VITALS: BP 120/62; PULSE 66; RESP 16; TEMP 97.9; O2SAT 100
[2025-01-11 05:00] VITALS: BP 115/64; PULSE 66; RESP 16; TEMP 97.9; O2SAT 100
[2025-01-11 07:43] LABS: Basophils # (auto) 0.1 10 ^3/uL (0-0.2); Basophils % (auto) 0.7 % (0.0-2.0); Eosinophils # (auto) 0.3 10 ^3/uL (0-0.8); Eosinophils % (auto) 3.1 % (0.0-7.0); Hematocrit 26.4 % (36.0-46.0); Hemoglobin 9.1 g/dL (12.2-16.2); Lymphocytes # (auto) 1.4 10 ^3/uL (0.4-5.4); Lymphocytes % (auto) 16.9 % (10.0-50.0); Mean Corpuscular Hemoglobin 30.4 pg (28.0-32.0); Mean Corpuscular Hgb Conc. 34.5 g/dL (32.0-36.0); Mean Corpuscular Volume 88.2 fL (80.0-100.0); Monocytes # (auto) 0.7 10 ^3/uL (0-1.3); Monocytes % (auto) 8.5 % (0.0-12.0); Neutrophils # (auto) 5.7 10 ^3/uL (1.6-8.6); Neutrophils % (auto) 70.8 % (37.0-80.0); Platelet Count (auto) 345 10^3/uL (140-450); Red Blood Cells 2.99 10^6/uL (4.0-5.20); Red Cell Distribution Width 13.6 % (11.8-14.3)
[2025-01-11 07:45] LABS: Alkaline Phosphatase 54 U/L (46-116); Anion Gap 5 (5-15); Calcium 9.1 mg/dL (8.7-10.4); Chloride 104 mmol/L (98-107); Glucose 94 mg/dL (74-106); Sodium 141 mmol/L (136-145)
[2025-01-11 07:46] LABS: BUN/Creatinine Ratio 63.5 (10.0-20.0); Magnesium 2.1 mg/dL (1.6-2.6)
[2025-01-11 07:48] LABS: Bilirubin, Total 0.3 mg/dL (0.2-1.0)
[2025-01-11 07:49] LABS: Alanine Aminotransferase < 9 U/L (7-40); Albumin 2.9 g/dL (3.2-4.8); Aspartate Aminotransferase 13 U/L (13-40); Blood Urea Nitrogen 61 mg/dL (9-23); Carbon Dioxide 32 mmol/L (20-31); Potassium 3.2 mmol/L (3.5-5.1)
[2025-01-11 09:00] VITALS: BP 174/71; PULSE 62; RESP 19; TEMP 98.3; O2SAT 93
--- NOTE | 2025-01-11 10:53 | DVHPN2 ---
Subjective Still having loose stools according to the nursing staff Changes from previous H/P or p: Changes Eyes: No Pain, No Vision change, No Conjunctivae inflammation, No Eyelid inflammation, No Other, No Redness ENT: No Ear pain, No Ear discharge, No Nose pain, No Nose discharge, No Nose congestion, No Mouth pain, No Mouth swelling, No Throat pain, No Throat swelling, No Other Cardiovascular: No Chest Pain, No Palpitations, No Orthopnea, No Paroxysmal Noc. Dyspnea, No Edema, No Lt Headedness, No Other Respiratory: No Cough, No Dry, No Shortness of breath, No SOB with excertion, No Wheezing, No Hemoptysis, No Pleuritic Pain, No Sputum, No Other Gastrointestinal: No Nausea, No Vomiting; Abdominal Pain, Diarrhea (black stool); No Constipation, No Melena, No Hematochezia, No Other Genitourinary: No Dysuria, No Frequency, No Incontinence, No Hematuria, No Retention, No Other Musculoskeletal: No other, No neck pain, No shoulder pain, No arm pain, No back pain, No hand pain, No leg pain, No foot pain Skin: No Rash, No Lesions, No Jaundice, No Bruising, No Other Objective Vitals Vital Signs Date Time Temp Pulse Resp B/P (MAP) Pulse Ox O2 Delivery O2 Flow Rate FiO2 01/11/25 09:45 174/71 01/11/25 09:00 98.3 62 19 93 98.3 01/11/25 08:00 Nasal Cannula* 3 32 Intake/Output Intake and Output 01/11/25 07:00 Intake Total 2350 ml Output Total 800 ml Balance 1550 ml Intake Oral 1150 ml IV Total 1200 ml Output Urine Total 800 ml # Bowel Movements 5 General Appearance: Alert, Other (Disoriented to time and place) Lungs: Clear to auscultation, Normal air movement, Other Cardiovascular: Regular rate, Normal S1, Normal S2, No murmurs, Gallops, Rubs, Other Abdomen: Normal bowel sounds, Soft, No tenderness, No hepatospenomegaly, No masses, Other Extremities: No edema Medications Current Medications Medications Dose Ordered Sig/Danna Route Start Time Stop Time Status Last Admin Dose Admin Ondansetron HCl 4 mg Q4HP PRN IV 01/04/25 15:15 Acetaminophen 650 mg Q6HP PRN PO 01/04/25 15:15 01/10/25 19:26 650 MG Ceftriaxone Sodium 50 ml @ 100 mls/hr DAILY@09 IV 01/05/25 09:00 01/11/25 09:45 100 MLS/HR Metronidazole 100 ml @ 100 mls/hr Q8HR IV 01/04/25 22:00 01/11/25 05:52 100 MLS/HR Carbidopa/Levodopa 1 tab TID PO 01/04/25 15:44 01/10/25 22:41 1 TAB Enalapril Maleate 10 mg DAILY PO 01/05/25 10:00 01/11/25 09:45 10 MG Diagnostic Test (Pha) 1 strip ACHS 01/04/25 22:00 01/11/25 07:00 1 STRIP Insulin Human Regular ACHS SC 01/04/25 22:00 01/10/25 22:20 2 UNITS Dextrose 50 ml UD PRN IV 01/04/25 18:00 Pantoprazole Sodium 40 mg BID IV 01/05/25 22:00 01/11/25 09:45 40 MG Sodium Chloride 1,000 ml @ 60 mls/hr [id number] IV 01/05/25 13:15 01/09/25 02:00 60 MLS/HR Saccharomyces Boulardii 250 mg DAILY PO 01/09/25 10:00 01/11/25 09:45 250 MG Vancomycin HCl 125 mg QID PO 01/08/25 19:01 01/11/25 05:53 125 MG Cholestyramine Resin 4 gm DAILY@11 GT 01/11/25 11:00 Laboratory Results Laboratory Tests 01/11/25 06:45 Chemistry Test 01/11/25 06:45 Albumin 2.9 g/dL (3.2-4.8) L Calcium Level 9.1 mg/dL (8.7-10.4) Magnesium Level 2.1 mg/dL (1.6-2.6) Total Protein 6.0 g/dL (5.7-8.2) LFT Test 01/11/25 06:45 Alanine Aminotransferase (ALT) < 9 U/L (7-40) Alkaline Phosphatase 54 U/L (46-116) Aspartate Amino Transferase (AST) 13 U/L (13-40) Total Bilirubin 0.3 mg/dL (0.2-1.0) Urinalysis Test 01/04/25 22:39 Urine Color Dark-brown (Yellow) Urine Clarity Ex.turbid (Clear) Urine pH 6.0 (5.0-9.0) Urine Specific [place] 1.009 (1.001-1.035) Urine Protein 1+ (Negative) H Urine Ketones Negative (Negative) Urine Blood 2+ /uL (Negative) H Urine Nitrite Negative (Negative) Urine Bilirubin Negative (Negative) Urine Urobilinogen Normal mg/dL (Negative) Urine Leukocyte Esterase 3+ /uL (Negative) Urine RBC 174 /hpf (0 - 4) Urine WBC Clumps Present /hpf (None Seen) Urine Microscopic WBC 1105 /HPF (0-5) H Urine Squamous Epithelial Cells Mod /hpf (<5) Urine Bacteria Many /hpf (None Seen) H Urine Glucose Normal mg/dL (Normal) Microbiology Microbiology Date/Time Source Procedure Growth Status 01/06/25 14:01 Stool Clostridium difficile Toxin Assay - Final Complete 01/05/25 05:10 Sacrum Gram Stain - Final Complete 01/05/25 05:10 Sacrum Wound Culture - Final Complete 01/04/25 22:39 Urine - Catheterized Urine Culture - Final Yeast, not Elma albicans Complete 01/04/25 12:43 Blood Blood Culture - Final NO GROWTH AFTER 5 DAYS OF INCUBATION. Complete Assessment/Plan Assessment/Plan Acute metabolic encephalopathy Diarrhea rule out C diff colitis Rule out GI bleed Left lower lobe pneumonia Acute kidney injury due to vasomotor nephropathy Dehydration Alzheimer's dementia Parkinson's disease Type 2 diabetes History of hypertension History of congestive heart failure Dyslipidemia Cholelithiasis Dysphagia Generalized weakness Bed-bound UTI Plan Empirical broad-spectrum antibiotics with Rocephin and Flagyl NPO Swallow eval Get the stool specimen for guaiac which was positive Send the stools also for C diff and culture GI consult IV Protonix IV fluids Hold unnecessary p.o. medications Full code Advance directives discussed for 20 minutes Care plan was discussed with the daughter at the bedside 01/06/2025: Continue IV antibiotics Continue IV fluids normal saline at 60 mL an hour Continue the current management No diarrhea anymore so the C diff was not done The patient had positive guaiac stools, the GI consult is appreciated, recommendation is for conservative treatment with proton pump inhibitors and clear liquid diet and monitor Avoid aspirin and NSAIDs Avoids blood thinners Monitor closely 01/07/25: Lethargy: Discontinue all medications that might contribute including quetiapine and gabapentin C diff colitis: Continue metronidazole, Start p.o. vancomycin Pneumonia: Continue Rocephin Resume her diet Hold off GI intervention for now since she is not stable enough Monitor closely The rest of the management will depend on the hospital course 01/08/2025: C diff colitis: Continue p.o. vanco and IV metronidazole Pneumonia: Continue Rocephin Continue monitoring 01/09/2025: Continue p.o. vancomycin and IV metronidazole Continue supplements Continue diet pureed Monitor closely 01/10/2025: Continue p.o. vancomycin and IV Flagyl Continue IV fluids Continue Rocephin for the pneumonia Monitor closely 01/11/2025: Hypokalemia: Replace Continue protein supplements Continue Florastor Continue p.o. vancomycin and discontinue metronidazole Discontinue the ceftriaxone, she finish 7 day off treatment for pneumonia Plan discussed with: Patient Date of Service: January 11, 2025 Billing Provider: BEKA BOOKER MD Common Visit Codes: [id number] INP/OBS CARE(HIGH) BEKA BOOKER MD January 11, 2025 10:52
[2025-01-11] MEDS: CHOLESTYRAMINE 4 GM POWDER GT SCH (11:00)
[2025-01-11] MEDS: POTASSIUM EFFERVESENT TAB 25 MEQ PO ONE (12:11)
[2025-01-11 13:00] VITALS: BP 146/71; PULSE 66; RESP 17; TEMP 98.2; O2SAT 100
[2025-01-11] MEDS: CHOLESTYRAMINE 4 GM POWDER PO SCH (15:59)
--- NOTE | 2025-01-11 20:24 | DVHPN2 ---
Progress Note - Dictate Date Seen: January 11, 2025 Medical Necessity Reason Pt with a Central, PICC or Fol: No Subjective No new complaints; resting comfortably Continued loose bowel movements 3-5 bowel movements recorded Stool for occult blood was positive Stool for C diff was positive No active GI bleeding is reported at this time Cholestyramine was not started yet vital signs Vital Sign Date Time Temp Pulse Resp B/P (MAP) Pulse Ox O2 Delivery O2 Flow Rate FiO2 01/11/25 19:56 Nasal Cannula* 3 32 01/11/25 13:00 98.2 66 17 146/71 (96) 100 98.2 Total Intake and Output 01/10/25 01/10/25 01/11/25 15:00 23:00 07:00 Intake Total 450 ml 1750 ml 150 ml Output Total 650 ml 150 ml Balance 450 ml 1100 ml 0 ml medications Current Medications Medications Dose Ordered Sig/Danna Route Start Time Stop Time Status Last Admin Dose Admin Ondansetron HCl 4 mg Q4HP PRN IV 01/04/25 15:15 Acetaminophen 650 mg Q6HP PRN PO 01/04/25 15:15 01/10/25 19:26 650 MG Carbidopa/Levodopa 1 tab TID PO 01/04/25 15:44 01/11/25 13:36 1 TAB Enalapril Maleate 10 mg DAILY PO 01/05/25 10:00 01/11/25 09:45 10 MG Diagnostic Test (Pha) 1 strip ACHS 01/04/25 22:00 01/11/25 15:59 1 STRIP Insulin Human Regular ACHS SC 01/04/25 22:00 01/10/25 22:20 2 UNITS Dextrose 50 ml UD PRN IV 01/04/25 18:00 Pantoprazole Sodium 40 mg BID IV 01/05/25 22:00 01/11/25 09:45 40 MG Sodium Chloride 1,000 ml @ 60 mls/hr [id number] IV 01/05/25 13:15 01/09/25 02:00 60 MLS/HR Saccharomyces Boulardii 250 mg DAILY PO 01/09/25 10:00 01/11/25 09:45 250 MG Vancomycin HCl 125 mg QID PO 01/08/25 19:01 01/11/25 18:40 125 MG Cholestyramine Resin 4 gm DAILY@11 PO 01/11/25 15:45 01/11/25 15:59 4 GM objective General Appearance: Alert, Other (Disoriented to time and place) Lungs: Clear to auscultation, Normal air movement, Other Cardiovascular: Regular rate, Normal S1, Normal S2, No murmurs, Gallops, Rubs, Other Abdomen: Normal bowel sounds, Soft, No tenderness, No hepatospenomegaly, No masses, Other Extremities: No edema laboratory and microbiology Laboratory Tests 01/11/25 06:45 Test 01/11/25 06:45 Range/Units Serum Glucose 94 74-106 mg/dL Problems(with codes): (1) C. difficile diarrhea (2) Heme + stool (3) Anemia of chronic disease (4) Melena (5) AMS (altered mental status) (6) Dysphagia Prognosis PLAN Continue oral Vancomycin Continue Floristar Add Questran 4 gm pkt po daily Advance diet as tolerated Continue supportive care Discharge planning as per hospitalist Outpatient follow up with GI Services if any further GI workup is needed Dietary Evaluation Review Comments: 1. Currently on Clear Liquid diet, advance as tolerated pending PHYS THER rec's 2. Pt not to go >5 days NPO/CL only -> (Currently Day 1) 3. Will add Ensure Clear TID in the interim to optimize oral nutrition (provides 240 kcal, 8 gm pro per carton) 4. Daily wt's to trend while inpatient Expected Outcomes/Goals: Improved nutritional status, diet progression. Food and Nutrition Intake (Sev: <50% est energy req 5days Interpretation of weight loss: >5% in 1 month Protein Calorie Malnutrition: Severe Is there a minimum of two crit: Yes Plan discussed with: Patient, Other (Nurse) LONNIE ECHOLS MD January 11, 2025 20:24
[2025-01-11 21:00] VITALS: BP 167/87; PULSE 75; RESP 18; TEMP 98.5; O2SAT 100
[2025-01-11] MEDS: HYDROcodone-ACET 5/325MG TAB PO PRN (21:48)
[2025-01-11 22:48] VITALS: BP 144/73; PULSE 71; RESP 17; O2SAT 98
[2025-01-12] VITALS (7 sets, daily range): BP systolic 117–168; BP diastolic 58–90; PULSE 18–73; RESP 14–95; TEMP 97.7–98.2; O2SAT 95–100
[2025-01-12 06:04] LABS: Anion Gap 6 (5-15); Chloride 104 mmol/L (98-107); Sodium 142 mmol/L (136-145)
[2025-01-12 06:06] LABS: Calcium 8.6 mg/dL (8.7-10.4); Carbon Dioxide 32 mmol/L (20-31); Potassium 3.5 mmol/L (3.5-5.1)
[2025-01-12 06:11] LABS: BUN/Creatinine Ratio 61.4 (10.0-20.0); Glucose 86 mg/dL (74-106)
[2025-01-12 06:19] LABS: Blood Urea Nitrogen 54 mg/dL (9-23)
[2025-01-12] MEDS: MUPIROCIN 2% OINT 15gm or 22gm FOR MRSA NARES EACHNOSTRI SCH (12:27)
[2025-01-12] MEDS: FLUCONAZOLE 200MG/100ML 100 ML IV SCH (12:27)
--- NOTE | 2025-01-12 16:39 | DVHPN2 ---
Subjective No new complaints Changes from previous H/P or p: Changes Eyes: No Pain, No Vision change, No Conjunctivae inflammation, No Eyelid inflammation, No Other, No Redness ENT: No Ear pain, No Ear discharge, No Nose pain, No Nose discharge, No Nose congestion, No Mouth pain, No Mouth swelling, No Throat pain, No Throat swelling, No Other Cardiovascular: No Chest Pain, No Palpitations, No Orthopnea, No Paroxysmal Noc. Dyspnea, No Edema, No Lt Headedness, No Other Respiratory: No Cough, No Dry, No Shortness of breath, No SOB with excertion, No Wheezing, No Hemoptysis, No Pleuritic Pain, No Sputum, No Other Gastrointestinal: No Nausea, No Vomiting; Abdominal Pain, Diarrhea (black stool); No Constipation, No Melena, No Hematochezia, No Other Genitourinary: No Dysuria, No Frequency, No Incontinence, No Hematuria, No Retention, No Other Musculoskeletal: No other, No neck pain, No shoulder pain, No arm pain, No back pain, No hand pain, No leg pain, No foot pain Skin: No Rash, No Lesions, No Jaundice, No Bruising, No Other Objective Vitals Vital Signs Date Time Temp Pulse Resp B/P (MAP) Pulse Ox O2 Delivery O2 Flow Rate FiO2 01/12/25 13:00 97.9 71 18 136/72 (93) 96 97.9 01/12/25 08:00 Nasal Cannula* 3 32 Intake/Output Intake and Output 01/12/25 07:00 Intake Total 670 ml Output Total 1100 ml Balance -430 ml Intake Oral 620 ml IV Total 50 ml Output Urine Total 1100 ml # Bowel Movements 2 General Appearance: Alert, Other (Disoriented to time and place) Lungs: Clear to auscultation, Normal air movement, Other Cardiovascular: Regular rate, Normal S1, Normal S2, No murmurs, Gallops, Rubs, Other Abdomen: Normal bowel sounds, Soft, No tenderness, No hepatospenomegaly, No masses, Other Extremities: No edema Medications Current Medications Medications Dose Ordered Sig/Danna Route Start Time Stop Time Status Last Admin Dose Admin Ondansetron HCl 4 mg Q4HP PRN IV 01/04/25 15:15 Acetaminophen 650 mg Q6HP PRN PO 01/04/25 15:15 01/10/25 19:26 650 MG Carbidopa/Levodopa 1 tab TID PO 01/04/25 15:44 01/12/25 16:01 1 TAB Enalapril Maleate 10 mg DAILY PO 01/05/25 10:00 01/12/25 09:43 10 MG Diagnostic Test (Pha) 1 strip ACHS 01/04/25 22:00 01/12/25 12:28 1 STRIP Insulin Human Regular ACHS SC 01/04/25 22:00 01/10/25 22:20 2 UNITS Dextrose 50 ml UD PRN IV 01/04/25 18:00 Pantoprazole Sodium 40 mg BID IV 01/05/25 22:00 01/12/25 09:43 40 MG Saccharomyces Boulardii 250 mg DAILY PO 01/09/25 10:00 01/12/25 09:43 250 MG Vancomycin HCl 125 mg QID PO 01/08/25 19:01 01/12/25 12:30 125 MG Cholestyramine Resin 4 gm DAILY@11 PO 01/11/25 15:45 01/12/25 09:49 4 GM Acetaminophen/ Hydrocodone Bitart 1 tab Q6HPRN PRN PO 01/11/25 21:00 01/12/25 09:44 1 TAB Mupirocin 1 applic BID EACHNOSTRI 01/12/25 10:00 01/17/25 09:59 01/12/25 12:27 1 APPLIC Fluconazole 100 ml @ 100 mls/hr DAILY IV 01/12/25 10:00 01/12/25 12:27 100 MLS/HR Laboratory Results Laboratory Tests 01/11/25 06:45 01/12/25 05:19 Chemistry Test 01/12/25 05:19 Calcium Level 8.6 mg/dL (8.7-10.4) L Urinalysis Test 01/04/25 22:39 Urine Color Dark-brown (Yellow) Urine Clarity Ex.turbid (Clear) Urine pH 6.0 (5.0-9.0) Urine Specific [place] 1.009 (1.001-1.035) Urine Protein 1+ (Negative) H Urine Ketones Negative (Negative) Urine Blood 2+ /uL (Negative) H Urine Nitrite Negative (Negative) Urine Bilirubin Negative (Negative) Urine Urobilinogen Normal mg/dL (Negative) Urine Leukocyte Esterase 3+ /uL (Negative) Urine RBC 174 /hpf (0 - 4) Urine WBC Clumps Present /hpf (None Seen) Urine Microscopic WBC 1105 /HPF (0-5) H Urine Squamous Epithelial Cells Mod /hpf (<5) Urine Bacteria Many /hpf (None Seen) H Urine Glucose Normal mg/dL (Normal) Microbiology Microbiology Date/Time Source Procedure Growth Status 01/06/25 14:01 Stool Clostridium difficile Toxin Assay - Final Complete 01/05/25 05:10 Sacrum Gram Stain - Final Complete 01/05/25 05:10 Sacrum Wound Culture - Final Complete 01/04/25 22:39 Urine - Catheterized Urine Culture - Final Yeast, not Elma albicans Complete 01/04/25 12:43 Blood Blood Culture - Final NO GROWTH AFTER 5 DAYS OF INCUBATION. Complete Assessment/Plan Assessment/Plan Acute metabolic encephalopathy Diarrhea rule out C diff colitis Rule out GI bleed Left lower lobe pneumonia Acute kidney injury due to vasomotor nephropathy Dehydration Alzheimer's dementia Parkinson's disease Type 2 diabetes History of hypertension History of congestive heart failure Dyslipidemia Cholelithiasis Dysphagia Generalized weakness Bed-bound UTI Plan Empirical broad-spectrum antibiotics with Rocephin and Flagyl NPO Swallow eval Get the stool specimen for guaiac which was positive Send the stools also for C diff and culture GI consult IV Protonix IV fluids Hold unnecessary p.o. medications Full code Advance directives discussed for 20 minutes Care plan was discussed with the daughter at the bedside 01/06/2025: Continue IV antibiotics Continue IV fluids normal saline at 60 mL an hour Continue the current management No diarrhea anymore so the C diff was not done The patient had positive guaiac stools, the GI consult is appreciated, recommendation is for conservative treatment with proton pump inhibitors and clear liquid diet and monitor Avoid aspirin and NSAIDs Avoids blood thinners Monitor closely 01/07/25: Lethargy: Discontinue all medications that might contribute including quetiapine and gabapentin C diff colitis: Continue metronidazole, Start p.o. vancomycin Pneumonia: Continue Rocephin Resume her diet Hold off GI intervention for now since she is not stable enough Monitor closely The rest of the management will depend on the hospital course 01/08/2025: C diff colitis: Continue p.o. vanco and IV metronidazole Pneumonia: Continue Rocephin Continue monitoring 01/09/2025: Continue p.o. vancomycin and IV metronidazole Continue supplements Continue diet pureed Monitor closely 01/10/2025: Continue p.o. vancomycin and IV Flagyl Continue IV fluids Continue Rocephin for the pneumonia Monitor closely 01/11/2025: Hypokalemia: Replace Continue protein supplements Continue Florastor Continue p.o. vancomycin and discontinue metronidazole Discontinue the ceftriaxone, she finish 7 day off treatment for pneumonia 01/12/2025: CV colitis: Continue p.o. vancomycin UTI with yeast: IV Diflucan MRSA of the nares: Mupirocin ointment Monitor the patient closely Discharge planning for tomorrow to go home with home health Plan discussed with: Patient, Daughter, Other My Orders Orders - BEKA BOOKER MD Procedure Category Date Status Time Mupirocin 2% Oint PHA 01/12/25 In Process Mrsa Nares (Bactroban 10:00 Fluconazole PHA 01/12/25 In Process 200mg/100ml (Diflucan 10:00 Date of Service: January 12, 2025 Billing Provider: BEKA BOOKER MD Common Visit Codes: [id number] INP/OBS CARE(HIGH) BEKA BOOKER MD January 12, 2025 16:39
[2025-01-13 01:00] VITALS: BP 141/73; PULSE 64; RESP 14; TEMP 97.8; O2SAT 98
[2025-01-13 05:00] VITALS: BP 105/54; PULSE 62; RESP 16; TEMP 97.4; O2SAT 100
[2025-01-13 09:00] VITALS: BP 135/78; PULSE 63; RESP 16; TEMP 98.7; O2SAT 100
[2025-01-13] MEDS ORDERED: VANC125C3 PO (10:57)
[2025-01-13] MEDS ORDERED: SACC250C PO (10:57)
[2025-01-13] MEDS ORDERED: MUPI2OIN2 EACHNOSTRI (10:57)
[2025-01-13] MEDS ORDERED: FLUC200T PO (10:57)
[2025-01-13 11:34] VITALS: BP 135/78; PULSE 63; RESP 16; TEMP 98.7; O2SAT 100
--- NOTE | 2025-01-13 13:42 | DVHPN2 ---
Progress Note - Dictate Date Seen: January 13, 2025 Medical Necessity Reason Pt with a Central, PICC or Fol: No Subjective No new complaints; resting comfortably Diarrhoea improved; one to two bowel movements over 24 hrs Stool for occult blood was positive Stool for C diff was positive No active GI bleeding is reported at this time Cholestyramine was started vital signs Vital Sign Date Time Temp Pulse Resp B/P (MAP) Pulse Ox O2 Delivery O2 Flow Rate FiO2 01/13/25 11:34 98.7 63 16 100 01/13/25 09:47 135/78 01/13/25 07:30 Nasal Cannula* 3 32 Total Intake and Output 01/12/25 01/12/25 01/13/25 15:00 23:00 07:00 Intake Total 100 ml 600 ml 300 ml Output Total 850 ml 350 ml Balance 100 ml -250 ml -50 ml medications Current Medications Medications Dose Ordered Sig/Danna Route Start Time Stop Time Status Last Admin Dose Admin Ondansetron HCl 4 mg Q4HP PRN IV 01/04/25 15:15 Acetaminophen 650 mg Q6HP PRN PO 01/04/25 15:15 01/10/25 19:26 650 MG Carbidopa/Levodopa 1 tab TID PO 01/04/25 15:44 01/13/25 05:08 1 TAB Enalapril Maleate 10 mg DAILY PO 01/05/25 10:00 01/13/25 09:47 10 MG Diagnostic Test (Pha) 1 strip ACHS 01/04/25 22:00 01/13/25 05:08 1 STRIP Insulin Human Regular ACHS SC 01/04/25 22:00 01/10/25 22:20 2 UNITS Dextrose 50 ml UD PRN IV 01/04/25 18:00 Pantoprazole Sodium 40 mg BID IV 01/05/25 22:00 01/13/25 09:48 40 MG Saccharomyces Boulardii 250 mg DAILY PO 01/09/25 10:00 01/13/25 09:48 250 MG Vancomycin HCl 125 mg QID PO 01/08/25 19:01 01/13/25 05:07 125 MG Cholestyramine Resin 4 gm DAILY@11 PO 01/11/25 15:45 01/12/25 09:49 4 GM Acetaminophen/ Hydrocodone Bitart 1 tab Q6HPRN PRN PO 01/11/25 21:00 01/12/25 21:37 1 TAB Mupirocin 1 applic BID EACHNOSTRI 01/12/25 10:00 01/17/25 09:59 01/13/25 09:49 1 APPLIC Fluconazole 100 ml @ 100 mls/hr DAILY IV 01/12/25 10:00 01/13/25 09:47 100 MLS/HR objective General Appearance: Alert, Other (Disoriented to time and place) Lungs: Clear to auscultation, Normal air movement, Other Cardiovascular: Regular rate, Normal S1, Normal S2, No murmurs, Gallops, Rubs, Other Abdomen: Normal bowel sounds, Soft, No tenderness, No hepatospenomegaly, No masses, Other Extremities: No edema laboratory and microbiology Laboratory Tests 01/12/25 05:19 01/11/25 06:45 Test 01/12/25 05:19 Range/Units Serum Glucose 86 74-106 mg/dL Problems(with codes): (1) C. difficile diarrhea (2) Heme + stool (3) Anemia of chronic disease (4) Melena (5) AMS (altered mental status) Prognosis PLAN Discharge planning is in progress Continue vancomycin 125 mg p.o. q.6 hours Cholestyramine 4 g packet p.o. daily as needed for diarrhea Outpatient follow up with GI Services next available appointment or as needed Dietary Evaluation Review Comments: 1. Currently on Clear Liquid diet, advance as tolerated pending [employer]TLEMENT AGENT rec's 2. Pt not to go >5 days NPO/CL only -> (Currently Day 1) 3. Will add Ensure Clear TID in the interim to optimize oral nutrition (provides 240 kcal, 8 gm pro per carton) 4. Daily wt's to trend while inpatient Expected Outcomes/Goals: Improved nutritional status, diet progression. Food and Nutrition Intake (Sev: <50% est energy req 5days Interpretation of weight loss: >5% in 1 month Protein Calorie Malnutrition: Severe Is there a minimum of two crit: Yes Plan discussed with: Patient, Other (None) LONNIE ECHOLS MD January 13, 2025 13:42
--- NOTE | 2025-01-13 14:48 | DVHDS2 ---
Discharge Summary Date of Admission January 04, 2025 at 15:11 Date of Discharge: January 13, 2025 Labs/Diagnostic Data: Laboratory Results Test 01/13/25 05:12 01/12/25 05:19 01/11/25 06:45 01/07/25 11:23 POC Glucose 117 mg/dl (70-106) Sodium Level 142 mmol/L (136-145) Potassium Level 3.5 mmol/L (3.5-5.1) Chloride Level 104 mmol/L (98-107) Carbon Dioxide Level 32 mmol/L (20-31) Anion Gap 6 (5-15) Blood Urea Nitrogen 54 mg/dL (9-23) Creatinine 0.88 mg/dL (0.550-1.02) Glomerular Filtration Rate Calc 64 mL/min (>90) BUN/Creatinine Ratio 61.4 (10.0-20.0) Serum Glucose 86 mg/dL (74-106) Calcium Level 8.6 mg/dL (8.7-10.4) White Blood Count 8.0 10^3/uL (4.4-10.8) Red Blood Count 2.99 10^6/uL (4.0-5.20) Hemoglobin 9.1 g/dL (12.2-16.2) Hematocrit 26.4 % (36.0-46.0) Mean Corpuscular Volume 88.2 fL (80.0-100.0) Mean Corpuscular Hemoglobin 30.4 pg (28.0-32.0) Mean Corpuscular Hemoglobin Concent 34.5 g/dL (32.0-36.0) Red Cell Distribution Width 13.6 % (11.8-14.3) Platelet Count 345 10^3/uL (140-450) Mean Platelet Volume 7.7 fL (6.9-10.8) Neutrophils (%) (Auto) 70.8 % (37.0-80.0) Lymphocytes (%) (Auto) 16.9 % (10.0-50.0) Monocytes (%) (Auto) 8.5 % (0.0-12.0) Eosinophils (%) (Auto) 3.1 % (0.0-7.0) Basophils (%) (Auto) 0.7 % (0.0-2.0) Neutrophils # (Auto) 5.7 10 ^3/uL (1.6-8.6) Lymphocytes # (Auto) 1.4 10 ^3/uL (0.4-5.4) Monocytes # (Auto) 0.7 10 ^3/uL (0-1.3) Eosinophils # (Auto) 0.3 10 ^3/uL (0-0.8) Basophils # (Auto) 0.1 10 ^3/uL (0-0.2) Nucleated Red Blood Cells 0.0 % Magnesium Level 2.1 mg/dL (1.6-2.6) Total Bilirubin 0.3 mg/dL (0.2-1.0) Aspartate Amino Transferase (AST) 13 U/L (13-40) Alanine Aminotransferase (ALT) < 9 U/L (7-40) Alkaline Phosphatase 54 U/L (46-116) Total Protein 6.0 g/dL (5.7-8.2) Albumin 2.9 g/dL (3.2-4.8) Prothrombin Time 11.5 sec (9.3-11.8) Prothrombin Time INR 1.09 (0.9-1.15) Test 01/07/25 03:54 01/05/25 10:00 01/05/25 07:24 01/05/25 05:03 Influenza Type A Antigen Negative (Negative) Influenza Type B Antigen Negative (Negative) SARS-CoV-2 Antigen (Rapid) Negative (NEGATIVE) Hemoglobin A1c 5.0 % A1C (<5.7) Vitamin B12 Level 4648 pg/mL (211-911) Vitamin D 25-Hydroxy 76.9 ng/mL (30.0-100) Thyroid Stimulating Hormone (TSH) 1.68 uIU/mL (0.55-4.78) Test 01/05/25 02:45 01/04/25 22:39 01/04/25 13:38 01/04/25 12:43 Stool Occult Blood Positive (Negative) Stool Occult Blood Sample #3 (Negative) Urine Color Dark-brown (Yellow) Urine Clarity Ex.turbid (Clear) Urine pH 6.0 (5.0-9.0) Urine Specific [place] 1.009 (1.001-1.035) Urine Protein 1+ (Negative) Urine Ketones Negative (Negative) Urine Blood 2+ /uL (Negative) Urine Nitrite Negative (Negative) Urine Bilirubin Negative (Negative) Urine Urobilinogen Normal mg/dL (Negative) Urine Leukocyte Esterase 3+ /uL (Negative) Urine RBC 174 /hpf (0 - 4) Urine WBC Clumps Present /hpf (None Seen) Urine Microscopic WBC 1105 /HPF (0-5) Urine Squamous Epithelial Cells Mod /hpf (<5) Urine Bacteria Many /hpf (None Seen) Urine Glucose Normal mg/dL (Normal) Troponin I High Sensitivity 18 ng/L (</=34) Lactic Acid Level 1.1 mmol/L (0.4-2.0) B-Type Natriuretic Peptide 13.89 pg/mL (0-100) Lipase 26 U/L (12-53) Other Laboratory Tests 01/12/25 05:19 01/11/25 06:45 Brief Hx & Hospital Course: Final diagnoses: Acute metabolic encephalopathy due to UTI and pneumonia C diff colitis Left lower lobe pneumonia Gram-positive versus Gram-negative organisms Acute kidney injury due to vasomotor nephropathy Dehydration Alzheimer's dementia Parkinson's disease Type 2 diabetes History of hypertension History of congestive heart failure Dyslipidemia Cholelithiasis Dysphagia Generalized weakness Bed-bound UTI with the yeast MRSA of the nares GI bleed 84-year-old female with a history of dementia, type 2 diabetes, heart failure, hypertension, dyslipidemia, Parkinson's disease who is bed-bound at home with caregivers was brought to the hospital due to altered level of consciousness and decreased appetite and decreased oral intake and also diarrhea with tarry black stools according to the daughter for 2 weeks Evaluation here showed left lower lobe pneumonia White count is elevated She was treated with IV antibiotics for the pneumonia Because of the diarrhea we checked for C diff and it was positive so she was started on p.o. vancomycin and IV Flagyl Also found to have UTI with yeast which was treated with Diflucan MRSA was positive in the nares Metabolic encephalopathy improved slowly with treatment and she became more alert however she has baseline dementia and bed-bound and weakness The family takes care of her at home We educated the the patient's family about her care They are willing to continue to take care of her She also was diagnosed with a GI bleed and GI service contemplated doing endoscopy however because of her condition and sepsis and altered level of consciousness endoscopy was canceled Overall the patient improved and she is more stable now and therefore she will be discharged home She will be given Diflucan for the UTI and mupirocin ointment for the MRSA and vancomycin for the C diff colitis Home health was ordered for home The family will take care of her Continue pureed diet Follow up with the primary care physician as soon as possible Condition at Discharge: Stable Final Diagnosis/Problems List Discharge Diagnosis Acute metabolic encephalopathy C diff colitis Left lower lobe pneumonia Acute kidney injury due to vasomotor nephropathy Dehydration Alzheimer's dementia Parkinson's disease Type 2 diabetes History of hypertension History of congestive heart failure Dyslipidemia Cholelithiasis Dysphagia Generalized weakness Bed-bound UTI with yeast MRSA nares Discharge Disposition: Home SNF Discharge Will this Physician continue t: No Discharge Instruct/Medications Diet: See Comment Diet comment: Pureed Activity: No Restrictions, As Tolerated Follow Up/Referral: PCP REGINA Medications: Diflucan 200 mg qd x 7 days Vanco 125 mg qid x 10 days Mupirocin oit bid x 5 days Discharge Statement: "Patient was advised to return to the ER or call 911 if any headaches, dizziness, shortness of breath, chest pain, abdominal pain, bleeding, fevers, or worsening of medical condition. Patient was counseled about treatment plan, medications, possible side effects, patientverbalized understanding. All questions were answered to the best of my ability. This discharge took greater then 30 minutes in planning, reviewing documentation, counseling the patient, and discussing with other team members." ASSESSMENT ASSESSMENT Assessment Discharge Diagnosis Acute metabolic encephalopathy C diff colitis Left lower lobe pneumonia Acute kidney injury due to vasomotor nephropathy Dehydration Alzheimer's dementia Parkinson's disease Type 2 diabetes History of hypertension History of congestive heart failure Dyslipidemia Cholelithiasis Dysphagia Generalized weakness Bed-bound UTI with yeast MRSA nares Date of Service: January 13, 2025 Billing Provider: BEKA BOOKER MD Common Visit Codes: 09149-FZZ/OBS DISCH DAY >30min BEKA BOOKER MD January 13, 2025 14:47
[2025-01-13 21:00] VITALS: BP 137/62; PULSE 78; RESP 16; TEMP 98.2; O2SAT 100
== END 2025-01-13 20:50 | disposition home health service (06) | DRG 371 ==
LOC: EDBD 11:41 → ER 11:55 → OVERFLOW 15:11 → EAST 23:55
PROVIDERS: ADMIT Internal Medicine Geriatric Medicine; ATTEND Internal Medicine Geriatric Medicine
DX: A04.72 Enterocolitis due to Clostridium difficile, not specified as recurrent (principal); G93.41 Metabolic encephalopathy; N17.0 Acute kidney failure with tubular necrosis; J15.69 Pneumonia due to other Gram-negative bacteria; J15.9 Unspecified bacterial pneumonia; B37.49 Other urogenital candidiasis; D63.8 Anemia in other chronic diseases classified elsewhere; R13.10 Dysphagia, unspecified; I50.9 Heart failure, unspecified; G20.A1 Parkinson's disease without dyskinesia, without mention of fluctuations; E11.9 Type 2 diabetes mellitus without complications; G30.9 Alzheimer's disease, unspecified; Z20.822 Contact with and (suspected) exposure to COVID-19; F02.80 Dementia in other diseases classified elsewhere, unspecified severity, without behavioral disturbance, psychotic disturbance, mood disturbance, and anxiety; E86.0 Dehydration; E78.5 Hyperlipidemia, unspecified; K80.20 Calculus of gallbladder without cholecystitis without obstruction; K52.89 Other specified noninfective gastroenteritis and colitis; F41.9 Anxiety disorder, unspecified; B95.62 Methicillin resistant Staphylococcus aureus infection as the cause of diseases classified elsewhere; Z74.01 Bed confinement status
CPT/HCPCS: 36415; 71045; 74176; 80048; 80053; 81001; 82270; 82306; 82607; 82962; 83036; 83605; 83690; 83735; 83880; 84443; 84484; 85025; 85610; 87040; 87045; 87081; 87086; 87088; 87186; 87205; 87426; 87427; 87493; 87804; 92610; 93005; G0378; J1450; J1815; J2470; J3490

== ENCOUNTER 2025-05-06 13:15 | Inpatient (IN) | payer OTHER, MEDICAID ==
[~2025-05-06] VITALS: Ht 154.9 cm; Wt 52.9 kg
[~2025-05-06 13:15] MED LIST changes: +FLUC200T PO; +MUPI2OIN2 EACHNOSTRI; +SACC250C PO; +VANC125C3 PO
--- NOTE | 2025-05-06 13:41 | ED.PDOC ---
History of Present Illness HPI Comments 85-year-old female BIBA with prior medical history of Anxiety, Arthritis, CHF, Dementia (Alzheimer's), Depression, DM (Type II), High Lipids, HTN, UTI'S, chronic sacral decubitus ulcers - on wound care, Gram-positive bacteremia, PNA, On home oxygen, Atelectasis right lung, dementia: Surgical history of ear surgery in the chief complaint of hypertension. EMS report that the nursing facility that the patient lives at called EMS due from the patient being hypotensive and bed-bound. Patient is normal mental state is A&O x2. Denies chills, fever, N/V/D, SOB, CP. No other associated symptoms, modifiers, recent injuries or sick contacts present at this time. Time Seen by MD: 13:30 Primary Care Provider: JUAN JOSE Reviewed Notes: Nurses Notes, Medications, Allergies Allergies: Coded Allergies: NO KNOWN ALLERGIES (Unverified , 06/21/20) Home Meds Active Scripts Fluconazole (Diflucan) 200 Mg Tab, 1 TAB PO DAILY, #7 TAB Prov:BEKA BOOKER MD 01/13/25 Mupirocin (Pseudomonas Fluores (Mupirocin) 2 % Oin, 1 APPLIC EACHNOSTRI BID for 5 Days, #15 GM Prov:BEKA BOOKER MD 01/13/25 Vancomycin HCl (Vancomycin HCl) 125 Mg Cap, 125 MG PO QID for 10 Days, #40 CAP Prov:BEKA BOOKER MD 01/13/25 Yeast (S. Boulardii)(S. Cerevi (Florastor) 250 Mg Cap, 250 MG PO DAILY for 30 Days, #30 CAP Prov:BEKA BOOKER MD 01/13/25 Sucralfate (CARAFATE SUSP) 1 Gm/10 Ml Ss, 10 ML PO QID, #1200 ML 3 Refills Prov:JENNA ESPARZA MD 08/18/23 Pantoprazole Sodium Sesquihydr (Protonix) 40 Mg Tab, 40 MG PO BIDAC, #60 TAB Prov:JENNA ESPARZA MD 08/18/23 Ferrous Sulfate (Iron) 325 Mg Tab, 325 MG PO DAILY for 30 Days, #30 TAB Prov:ROBINSON BURKETT MD 09/24/21 Reported Medications Potassium Chloride (Klor-Con M20) 20 Meq Tab, 20 MEQ PO BID, TAB 12/12/23 Acetaminophen (Acetaminophen) 500 Mg Tab, 500 MG PO Q6HPRN PRN for MILD PAIN (1- 3 PAIN SCALE), TAB 12/12/23 Mirtazapine (Mirtazapine Oral Disintegrating Tablet) 15 Mg Tab, 15 MG PO QPM 12/12/23 Enalapril Maleate (Enalapril Maleate) 10 Mg Tab, 10 MG PO DAILY, TAB 12/12/23 Carbidopa-Levodopa (Carbidopa/Levodopa Odt 10-100 mg) 1 Tab Tab, 1 TAB PO TID 12/12/23 Lactulose (Lactulose) 10 Gm/15 Ml Isidra, 20 GM PO DAILY, ML 12/11/23 Docusate Sodium (Colace) 100 Mg Cap, 1 CAP PO BID, #30 CAP 12/11/23 Folic Acid (Folic Acid) 1 Mg Tab, 1 MG PO for 30 Days, MG 12/11/23 Furosemide (Furosemide) 40 Mg Tab, 40 MG PO BIDD, MG 05/12/22 Quetiapine Fumerate (Seroquel) 25 Mg Tab, 50 MG PO HS, TAB 09/09/21 Famotidine (Famotidine) 20 Mg Tab, 20 MG PO DAILY for 30 Days, MG 09/09/21 Simvastatin (Simvastatin) 40 Mg Tab, 40 MG PO DAILY for 30 Days 09/09/21 Citalopram Hydrobromide (Citalopram Hydrobromide) 20 Mg Tab, 20 MG PO DAILY for 30 Days, MG 09/09/21 Senna (Senna Lax) 8.6 Mg Tab, 8.6 MG PO QHSP, MG 09/09/21 Montelukast Sodium (MONTELUKAST SODIUM) 10 Mg Tab, 1 TAB PO DAILY, #30 TAB 5 Refills 09/09/21 Gabapentin (Gabapentin) 100 Mg Cap, 100 MG PO TID 09/09/21 Information Source: Patient, Emergency Med Personnel Mode of Arrival: EMS Severity: Moderate Timing: Hours Duration: Since onset, Hours Prehospital treatment: None Past Medical History PAST MEDICAL HISTORY: Anxiety, Arthritis, CHF, Dementia (Alzheimer's), Depres sunil, DM (Type 2), High Lipids, HTN, UTI'S Past Medical History (Other): Chronic sacral decubitus ulcers - on wound care, Gram-positive bacteremia, PNA, On home oxygen, Atelectasis right lung Surgical History (Other): Ear surgery NURSE CHEMICAL DEPENDENCY History: No Pertinent NURSE CHEMICAL DEPENDENCY History Family History Family History: Reviewed,noncontributory to illness, Unknown Social History Smoker: Non-Smoker Alcohol: Denies ETOH Use Drugs: Denies Drug Use Lives In: Home, Intermediate Constitutional: reports: others (Patient has high blood pressure but no other symptoms); denies: chills, diaphoresis, fatigue, fever, malaise, sweats, weakness EENTM: denies: blurred vision, double vision, ear bleeding, ear discharge, ear drainage, ear pain, ear ringing, eye pain, eye redness, hearing loss, mouth pain, mouth swelling, nasal discharge, nose bleeding, nose congestion, nose pain, photophobia, tearing, throat pain, throat swelling, voice changes, others Respiratory: denies: cough, hemoptysis, orthopnea, SOB at rest, shortness of breath, SOB with excertion, stridor, wheezing, others Cardiovascular: denies: chest pain, dizzy spells, diaphoresis, Dyspnea on exertion, edema, irregular heart beat, left arm pain, lightheadedness, palpitations, PND, syncope, others Gastrointestinal: denies: abdomen distended, abdominal pain, blood streaked bowels, constipated, diarrhea, dysphagia, difficulty swallowing, hematemesis, melena, nausea, poor appetite, poor fluid intake, rectal bleeding, rectal pain, vomiting, others Genitourinary: denies: abnormal vagina bleeding, burning, dyspareunia, dysuria, flank pain, frequency, hematuria, incontinence, pain, , vagina discharge, urgency, others Neurological: denies: dizziness, fainting, headache, left sided numbness, left sided weakness, numbness, paresthesia, pre-existing deficit, right sided numbness, right sided weakness, seizure, speech problems, tingling, tremors, weakness, others Musculoskeletal: denies: back pain, gout, joint pain, joint swelling, muscle pain, muscle stiffness, neck pain, others Integumetry: denies: bruises, change in color, change in hair/nails, dryness, laceration, lesions, lumps, rash, wounds, others Allergic/Immunocompromised: denies: Difficulty Healing, Frequent Infections, Hives, Itching, others Hematologic/Lymphatic: denies: anemia, blood clots, easy bleeding, easy bruising, swollen glands, others Endocrine: denies: excessive hunger, excessive sweating, excessive thirst, excessive urination, flushing, intolerance to cold, intolerance to heat, unexplained weight gain, unexplained weight loss, others Psychiatric: denies: anxiety, bipolar disorder, depression, hopeless, panic disorder, schizophrenia, sleepless, suicidal, others All Other Systems: Reviewed and Negative Physical Exam Exam Comments Patient seems uncomfortable General Appearance: No Apparent Distress, Normal HEENT: Normal ENT Inspection, Pharynx Normal, TMs Normal Neck: Full Range of Motion, Non-Tender, Normal, Normal Inspection Respiratory: Chest Non-Tender, Lungs Clear, No Accessory Muscle Use, No Respiratory Distress, Normal Breath Sounds Cardiovascular: No Edema, No JVD, No Murmur, No Gallop, Normal Peripheral Pulses, Regular Rate/Rhythm Breast Exam: Deferred Gastrointestinal: No Organomegaly, Non Tender, No Pulsatile Mass, Normal Bowel Sounds, Soft Genitalia: Deferred Pelvic: Deferred Rectal: Deferred Extremities: No calf tenderness, Normal capillary refill, Normal inspection, Normal range of motion, Non-tender, No pedal edema Musculoskeletal : Apperance: Normal Neurologic: Alert, card maker II-XII nml as Tested, No Motor Deficits, Normal Affect, Normal Mood, No Sensory Deficits Cerebellar Function: Normal Reflexes: Normal Skin: Dry, Normal Color, Warm Lymphatic: No Adenopathy Was a procedure done? Was a procedure done?: No Differential Dx Considerations may include: ACS, CVA, hypertensive urgency, viral syndrome, infectious etiology X-Ray, Labs, Meds, VS Vital Signs Date Time Temp Pulse Resp B/P (MAP) Pulse Ox O2 Delivery O2 Flow Rate FiO2 05/06/25 14:45 65 12 92 Room Air* 0 21 05/06/25 14:45 98.4 65 12 195/85 (121) 92 98.4 05/06/25 13:21 71 05/06/25 13:15 98.4 70 16 177/85 93 98.4 Lab Test 05/06/25 14:53 Range/Units White Blood Count 7.7 4.4-10.8 10^3/uL Red Blood Count 3.57 L 4.0-5.20 10^6/uL Hemoglobin 10.5 L 12.2-16.2 g/dL Hematocrit 31.5 L 36.0-46.0 % Mean Corpuscular Volume 88.2 80.0-100.0 fL Mean Corpuscular Hemoglobin 29.5 28.0-32.0 pg Mean Corpuscular Hemoglobin Concent 33.4 32.0-36.0 g/dL Red Cell Distribution Width 14.9 H 11.8-14.3 % Platelet Count 360 140-450 10^3/uL Mean Platelet Volume 7.4 6.9-10.8 fL Neutrophils (%) (Auto) 69.4 37.0-80.0 % Lymphocytes (%) (Auto) 23.3 10.0-50.0 % Monocytes (%) (Auto) 4.9 0.0-12.0 % Eosinophils (%) (Auto) 1.5 0.0-7.0 % Basophils (%) (Auto) 0.9 0.0-2.0 % Neutrophils # (Auto) 5.4 1.6-8.6 10 ^3/uL Lymphocytes # (Auto) 1.8 0.4-5.4 10 ^3/uL Monocytes # (Auto) 0.4 0-1.3 10 ^3/uL Eosinophils # (Auto) 0.1 0-0.8 10 ^3/uL Basophils # (Auto) 0.1 0-0.2 10 ^3/uL Nucleated Red Blood Cells 0.1 % Sodium Level 144 136-145 mmol/L Potassium Level 4.7 3.5-5.1 mmol/L Chloride Level 105 98-107 mmol/L Carbon Dioxide Level 30 20-31 mmol/L Anion Gap 9 5-15 Blood Urea Nitrogen 24 H 9-23 mg/dL Creatinine 0.86 0.550-1.02 mg/dL Glomerular Filtration Rate Calc 65 >90 mL/min BUN/Creatinine Ratio 27.9 H 10.0-20.0 Serum Glucose 84 74-106 mg/dL Calcium Level 8.8 8.7-10.4 mg/dL Troponin I High Sensitivity 14 </=34 ng/L Time of 1ST Reevaluation: 14:00 Reevaluation 1ST: Unchanged Patient Education/Counseling: Diagnosis, Treatment, Prognosis Family Education/Counseling: No Family Present SEPSIS Sepsis Screen Physician Orders Electrocardigram (05/06/25 14:16) Urinalysis (05/06/25 14:25) Chest Portable (05/06/25 14:25) Head Without Contrast (05/06/25 14:25) Electrocardigram (05/06/25 14:25) Troponin-I Hs (05/06/25 15:25) Troponin-I Hs (05/06/25 17:25) Electrocardigram (05/06/25 15:25) Electrocardigram (05/06/25 17:25) Vital Signs Date Time Temp Pulse Resp B/P (MAP) Pulse Ox O2 Delivery O2 Flow Rate FiO2 05/06/25 14:45 65 12 92 Room Air* 0 21 05/06/25 14:45 98.4 65 12 195/85 (121) 92 98.4 05/06/25 13:21 71 05/06/25 13:15 98.4 70 16 177/85 93 98.4 Laboratory Tests Test 05/06/25 14:53 White Blood Count 7.7 10^3/uL (4.4-10.8) Departure 1 Departure Time of Disposition: 16:00 (Patient presented with hypertension and symptoms concerning for hypertensive emergency. Patient is receiving iv blood pressure medications requiring intensive monitoring. Data: 1. I ordered and reviewed the result of at least 3 labs including a CBC, BMP, and Urinalysis. 2. I independently interpreted the following tests: CT Brain: Which appears benign. EKG which is Normal Sinus RhythmRisk:This patient has a high risk of morbidity due to further diagnostic testing or treatment and may suffer from an acute c ardiac disorder. Workup reveals hypertensive emergency and patient should be admitted for further workup. and possible expert consultation. ) Impression: Primary Impression: Hypertensive emergency Disposition: 09 ADMITTED INPATIENT Admit to: Tele Condition: Guarded Critical Care Note Critical Care Time?: Yes Critical care comment: Hypertensive emergency Authorized and Performed by: Yi Redmond MD Total critical care time: Approximately 39 minutes Due to a high probability of clinically significant, life threatening deterioration, the patient required my highest level of preparedness to intervene emergently and I personally spent this critical care time directly and personally managing the patient. This critical care time included obtaining a history; examining the patient; pulse oximetry; ordering and review of studies; arranging urgent treatment with development of a management plan; evaluation of patient's response to treatment; frequent reassessment; and, discussions with other providers. This critical care time was performed to assess and manage the high probability of imminent, life-threatening deterioration that could result in multi-organ failure. It was exclusive of separately billable procedures and treating other patients and teaching time. Please see my other sections and the rest of the note for further information on patient assessment and treatment. Stability Stability form required: No I personally scribed for YI REDMOND MD ([email or web address]) on 05/06/25 at 13:41. Electronically submitted by Shivam Bruce ([email or web address]). YI REDMOND MD May 06, 2025 13:41
[2025-05-06 14:45] VITALS: PULSE 65; RESP 12; O2SAT 92
[2025-05-06 15:16] LABS: Hematocrit 31.5 % (36.0-46.0); Hemoglobin 10.5 g/dL (12.2-16.2); Mean Corpuscular Hemoglobin 29.5 pg (28.0-32.0); Mean Corpuscular Volume 88.2 fL (80.0-100.0); Nucleated Red Blood Cells % 0.1 %
[2025-05-06 15:19] LABS: Chloride 105 mmol/L (98-107); Potassium 4.7 mmol/L (3.5-5.1); Sodium 144 mmol/L (136-145)
[2025-05-06 15:20] LABS: Anion Gap 9 (5-15); Calcium 8.8 mg/dL (8.7-10.4); Carbon Dioxide 30 mmol/L (20-31)
--- NOTE | 2025-05-06 15:22 | DVH ---
XY CHEST PORTABLE, HISTORY: htn, syncope COMPARISON: XY CHEST XRAY 1 VIEW on DOS: 01/04/25, XY CHEST PORTABLE on DOS: 10/30/24, XY CHEST PORTABLE on DOS: 12/10/23 XY CHEST XRAY 1 VIEW on DOS: 01/04/25, XY CHEST PORTABLE on DOS: 10/30/24, XY CHEST PORTABLE on DOS: 12/09 TECHNICAL DATA: 1 view of the chest was obtained. FINDINGS: Lines and tubes: None Cardiomediastinal silhouette: normal Pulmonary vasculature: prominent Lung expansion: low Lung airspace: normal Lung interstitium: normal Pleura: normal Pneumothorax: no Bones: Unremarkable Other: no IMPRESSION: Pulmonary vascular congestion.
[2025-05-06 15:25] LABS: BUN/Creatinine Ratio 27.9 (10.0-20.0); Glucose 84 mg/dL (74-106)
[2025-05-06 15:27] LABS: Blood Urea Nitrogen 24 mg/dL (9-23)
--- NOTE | 2025-05-06 15:35 | DVH ---
EXAM: CT HEAD WITHOUT CONTRAST INDICATION: htn, syncope TECHNIQUE: CT of the head without intravenous contrast. Radiation Dose Information: CT Dose: CTDI volume is 56.06 mGy. Dose-length product is 898.74 mGy*cm The dose indicators for CT are the volume Computed Tomography (CT) Dose Index (CTDIvol) and the Dose Length Product (DLP), and are measured in units of mGy and mGy-cm, respectively. These indicators are not patient dose, but values generated from the CT scanner acquisition factors. The report includes radiation exposure data for exposures received during this examination. COMPARISON: HEAD WITHOUT CONTRAST on DOS: 09/20/21 FINDINGS: There is no evidence of acute intracranial hemorrhage, extra-axial collection, mass effect, midline s hift, herniation or hydrocephalus. The ventricles, sulci and cisterns are age appropriate. The davenport-white differentiation is intact. Patchy periventricular and subcortical white matter hypoattenuation is nonspecific but may be related to small vessel ischemic disease. Mucosal thickening of the maxillary ethmoid and sphenoid and frontal sinuses bilaterally. Opacified right mastoid air cells. Correlate clinically for right mastoiditis. The surrounding soft tissues and osseous structures are unremarkable. IMPRESSION: 1. No acute intracranial abnormality. 2. Opacified right mastoid air cells. 3. Correlate clinically for right mastoiditis. Tissues around the right ossicles appear to be opacifi ed. 4. Bilateral frontal, ethmoid, maxillary and sphenoid sinus disease. 5. No acute intracranial hemorrhage. 6. CT findings of territorial ischemia.
[2025-05-06] MEDS: hydrALAZINE HCL 20 MG/ML VL IV ONE (16:41)
[2025-05-06 19:25] VITALS: O2SAT 98
[2025-05-06] MEDS ORDERED: DOCUSATE SOD 100 MG CAP PO PRN (20:15)
[2025-05-06] MEDS ORDERED: ACETAMINOPHEN 325 MG TAB PO PRN (20:15)
[2025-05-06] MEDS ORDERED: ONDANSETRON HCL 4 MG/2 ML VIAL IV PRN (20:15)
[2025-05-06] MEDS: FUROSEMIDE 40 MG/4 ML VIAL IV ONE (20:35)
[2025-05-06] MEDS: SODIUM CHLOR 0.9% PF (SALINE LOCK) 10ML VIAL/SYR IV SCH (22:16)
[2025-05-06] MEDS: CARBIDOPA W LEVODOPA 10/100mg TABLET PO SCH (22:44)
[2025-05-06] MEDS: ATORVASTATIN 20 MG TAB PO SCH (22:44)
[2025-05-06] MEDS: GABAPENTIN 100 MG CAP PO SCH (22:44)
--- NOTE | 2025-05-06 22:59 | DVHHP2 ---
History of Present Illness Reason for Visit: Hypertensive urgency History of Present Illness The patient is a 85-year-old female bed-bound with multiple past medical history including CHF, anxiety, depression, diabetes mellitus, and hypertension who presented to [facility] ED for evaluation of high blood pressure. As reported by EMS, patient lives at nursing facility, staff member called regarding patient's change in condition, was hypertensive, generalized weakness, getting worse. Patient was seen and evaluated in the ED, laboratory data shows WBC 7.7, hemoglobin 10.5, hematocrit 31.5, platelets 360, sodium 144, potassium 4.7, BUN 24, creatinine 0.86, glucose 84, calcium 8.8, troponin 14, blood pressure 195/85 trending down to 122/56, heart rate 68, temperature 97.6 F, O2 saturation 98% on room air. Head CT showed no acute intracranial abnormality. Please see medication orders section in the computer. On my assessment, patient remains altered, alert oriented x2, no dizziness, no diaphoresis, no shortness of breaths, no diarrhea, no nausea, no vomiting, no fever, no chills. Patient was admitted for further evaluation and medical management. Past Medical History Anxiety, Arthritis, CHF, Dementia (Alzheimer's), Depression, DM (Type 2), High Lipids, HTN, UTI'S Chronic sacral decubitus ulcers - on wound care, Gram-positive bacteremia, PNA, On home oxygen, Atelectasis right lung Past Surgical History Ear surgery Family History Reviewed, noncontributory to the management of this case. Past Social History The patient lives at snf facility, no history of smoking, alcohol or illicit drugs abuse on file. Review of Systems Constitutional: Yes: Weakness; No: Fever, Chills, Sweats, Malaise, Other Eyes: No: Pain, Vision change, Conjunctivae inflammation, Eyelid inflammation, Other, Redness ENT: No: Ear pain, Ear discharge, Nose pain, Nose discharge, Nose congestion, Mouth pain, Mouth swelling, Throat pain, Throat swelling, Other Respiratory: No: Cough, Dry, Shortness of breath, SOB with excertion, Wheezing, Hemoptysis, Pleuritic Pain, Sputum, Wheezing, Other Cardiovascular: Other (Hypertension); No: Chest Pain, Palpitations, Orthopnea, Paroxysmal Noc. Dyspnea, Edema, Lt Headedness Gastrointestinal: No: Nausea, Vomiting, Abdominal Pain, Diarrhea, Constipation, Melena, Hematochezia, Other Genitourinary: No Dysuria, No Frequency, No Incontinence, No Hematuria, No Retention, No Other Musculoskeletal: No: other, neck pain, shoulder pain, arm pain, back pain, hand pain, leg pain, foot pain Skin: No: Rash, Lesions, Jaundice, Bruising, Other Neurological: No: Weakness, Numbness, Incoordination, Change in speech, Confusion, Seizures, Other Allergies: Coded Allergies: NO KNOWN ALLERGIES (Unverified , 06/21/20) Medications Current Medications Medications Dose Ordered Sig/Danna Route Start Time Stop Time Status Last Admin Dose Admin Atorvastatin Calcium 20 mg HS PO 05/06/25 22:00 05/06/25 22:44 20 MG Gabapentin 100 mg TID PO 05/06/25 22:00 05/06/25 22:44 100 MG Hydralazine HCl 10 mg Q6HP PRN IV 05/06/25 20:15 Famotidine 20 mg DAILY IV 05/07/25 10:00 Carbidopa/Levodopa 1 tab TID PO 05/06/25 22:00 05/06/25 22:44 1 TAB Citalopram Hydrobromide 20 mg DAILY PO 05/07/25 10:00 Sodium Chloride 10 ml Q8HR IV 05/06/25 22:00 05/06/25 22:16 10 ML Acetaminophen/ Hydrocodone Bitart 1 tab Q4HP PRN PO 05/06/25 20:15 Ondansetron HCl 4 mg Q4HP PRN IV 05/06/25 20:15 Docusate Sodium 100 mg BIDPRN PRN PO 05/06/25 20:15 Acetaminophen 500 mg Q6HP PRN PO 05/06/25 20:15 Furosemide 40 mg DAILY IV 05/07/25 10:00 Exam Vital Signs Vital Signs Date Time Temp Pulse Resp B/P (MAP) Pulse Ox O2 Delivery O2 Flow Rate FiO2 05/06/25 19:25 98 Room Air* 0 21 05/06/25 19:25 97.6 68 18 122/56 (78) 97.6 General Appearance: Alert, Cooperative, No acute distress, Other (Oriented x2) HEENT: Atraumatic, PERRLA, EOMI, Mucous membr. moist/pink Respiratory: Normal air movement Cardiovascular: Regular rate, Normal S1, Normal S2, No murmurs Abdominal: Normal bowel sounds, Soft, No tenderness, No hepatospenomegaly, No masses Extremities: No clubbing, No cyanosis, No edema, Normal pulses, No tenderness/swelling Skin: No rashes, No significant lesion Neuro: Normal speech, Normal tone, Sensation intact, Cranial nerves 3-12 NL, Reflexes 2+, Other (Generalized weakness) Psych/Mental Status: Mood NL, Other (Altered mental status) Labs/Xrays Labs Test 05/06/25 19:16 05/06/25 14:53 Range/Units Troponin I High Sensitivity 21 </=34 ng/L White Blood Count 7.7 4.4-10.8 10^3/uL Red Blood Count 3.57 L 4.0-5.20 10^6/uL Hemoglobin 10.5 L 12.2-16.2 g/dL Hematocrit 31.5 L 36.0-46.0 % Mean Corpuscular Volume 88.2 80.0-100.0 fL Mean Corpuscular Hemoglobin 29.5 28.0-32.0 pg Mean Corpuscular Hemoglobin Concent 33.4 32.0-36.0 g/dL Red Cell Distribution Width 14.9 H 11.8-14.3 % Platelet Count 360 140-450 10^3/uL Mean Platelet Volume 7.4 6.9-10.8 fL Neutrophils (%) (Auto) 69.4 37.0-80.0 % Lymphocytes (%) (Auto) 23.3 10.0-50.0 % Monocytes (%) (Auto) 4.9 0.0-12.0 % Eosinophils (%) (Auto) 1.5 0.0-7.0 % Basophils (%) (Auto) 0.9 0.0-2.0 % Neutrophils # (Auto) 5.4 1.6-8.6 10 ^3/uL Lymphocytes # (Auto) 1.8 0.4-5.4 10 ^3/uL Monocytes # (Auto) 0.4 0-1.3 10 ^3/uL Eosinophils # (Auto) 0.1 0-0.8 10 ^3/uL Basophils # (Auto) 0.1 0-0.2 10 ^3/uL Nucleated Red Blood Cells 0.1 % Sodium Level 144 136-145 mmol/L Potassium Level 4.7 3.5-5.1 mmol/L Chloride Level 105 98-107 mmol/L Carbon Dioxide Level 30 20-31 mmol/L Anion Gap 9 5-15 Blood Urea Nitrogen 24 H 9-23 mg/dL Creatinine 0.86 0.550-1.02 mg/dL Glomerular Filtration Rate Calc 65 >90 mL/min BUN/Creatinine Ratio 27.9 H 10.0-20.0 Serum Glucose 84 74-106 mg/dL Calcium Level 8.8 8.7-10.4 mg/dL PATIENT: ROLANDO VILLA ACCT: [id number] UNIT: [id number] : 1940 LOC: ER ROOM / BED: / AGE / SEX: 85 / F ADM STATUS: REG ER SERVICE 142 ORDERING PHYSICIAN: YI REDMOND MD PROCEDURE(s): HWOCT - HEAD WITHOUT CONTRAST REASON: htn, syncope ORDER NUMBER(s): [id number], ACCESSION NUMBER(s): [id number] EXAM: CT HEAD WITHOUT CONTRAST INDICATION: htn, syncope TECHNIQUE: CT of the head without intravenous contrast. Radiation Dose Information: CT Dose: CTDI volume is 56.06 mGy. Dose-length product is 898.74 mGy*cm The dose indicators for CT are the volume Computed Tomography (CT) Dose Index (CTDIvol) and the Dose Length Product (DLP), and are measured in units of mGy and mGy-cm, respectively. These indicators are not patient dose, but values generated from the CT scanner acquisition factors. The report includes radiation exposure data for exposures received during this examination. COMPARISON: HEAD WITHOUT CONTRAST on DOS: 09/20/21 FINDINGS: There is no evidence of acute intracranial hemorrhage, extra-axial collection, mass effect, midline shift, herniation or hydrocephalus. The ventricles, sulci and cisterns are age appropriate. The davenport-white differentiation is intact. Patchy periventricular and subcortical white matter hypoattenuation is nonspecific but may be related to small vessel ischemic disease. Mucosal thickening of the maxillary ethmoid and sphenoid and frontal sinuses b ilaterally. Opacified right mastoid air cells. Correlate clinically for right mastoiditis. The surrounding soft tissues and osseous structures are unremarkable. IMPRESSION: 1. No acute intracranial abnormality. 2. Opacified right mastoid air cells. 3. Correlate clinically for right mastoiditis. Tissues around the right ossicles appear to be opacified. 4. Bilateral frontal, ethmoid, maxillary and sphenoid sinus disease. 5. No acute intracranial hemorrhage. 6. CT findings of territorial ischemia. ORDERING PHYSICIAN: YI REDMOND MD PROCEDURE(s): CXRP - CHEST PORTABLE REASON: htn, syncope ORDER NUMBER(s): [id number], ACCESSION NUMBER(s): [id number] XY CHEST PORTABLE, HISTORY: htn, syncope COMPARISON: XY CHEST XRAY 1 VIEW on DOS: 01/04/25, XY CHEST PORTABLE on DOS: 10/30/24, XY CHEST PORTABLE on DOS: 12/10/23 XY CHEST XRAY 1 VIEW on DOS: 01/04/25, XY CHEST PORTABLE on DOS: 10/30/24, XY CHEST PORTABLE on DOS: 12/10/23 TECHNICAL DATA: 1 view of the chest was obtained. FINDINGS: Lines and tubes: None Cardiomediastinal silhouette: normal Pulmonary vasculature: prominent Lung expansion: low Lung airspace: normal Lung interstitium: normal Pleura: normal Pneumothorax: no Bones: Unremarkable Other: no IMPRESSION: Pulmonary vascular congestion. SEPSIS Sepsis Screen Date sepsis recognized/suspect: May 06, 2025 Time Sepsis recognized/suspect: 1924 Recent Procedure: No On Antibiotic Therapy: No Respiratory Rate >20: No Heart Rate >90: No Temp<36 C (96.8 F) or >38.3 C: No SBP <90 or MAP <65 mmHG: No New Acute Mental Status Change: No Is the patient on CPAP, BIPAP,: No Physician Orders Consistent Carb(Ccho)Diabetes (05/07/25 Breakfast) Atorvastatin (Lipitor) (05/06/25 22:00) Gabapentin Capsule (Neurontin Capsule) (05/06/25 22:00) Hydralazine Injection (Apresoline Inject (05/06/25 20:15) Famotidine Injection (Pepcid Injection) (05/07/25 10:00) Carbidopa W Levodopa 10/100mg (Sinemet 1 (05/06/25 22:00) Citalopram Tablet (Celexa Tablet) (05/07/25 10:00) Allergies (05/06/25 20:03) Code Status (05/06/25 20:03) Sodium Chloride Lock (Saline Lock Ns) (05/06/25 22:00) Oxygen Per Hour (05/06/25 20:03) Hydrocodone-Acet 5/325mg Tab ([place] (05/06/25 20:15) Ondansetron Hcl (Zofran) (05/06/25 20:15) Docusate Sodium Capsule (Colace Capsule) (05/06/25 20:15) Fall Risk Precautions In Place QSHIFT (05/06/25 20:03) Complete Blood Count (05/07/25 04:00) Comprehensive Metabolic Panel (05/07/25 04:00) Cardiac Diet-2gna,Lofat,Lochol (05/07/25 Breakfast) Condition: Serious (05/06/25 20:03) Acetaminophen Tablet (Tylenol Tablet) (05/06/25 20:15) Maintain Bed Rest (05/06/25 20:03) Sequential Compression Device (05/06/25 ) Furosemide Injection (Lasix Injection) (05/07/25 10:00) Admit (05/06/25 22:57) Nitroglycerin Sublingual (Ntrostat Subli (05/06/25 23:00) Morphine Sulfate Injection (05/06/25 23:00) Vital Signs Date Time Temp Pulse Resp B/P (MAP) Pulse Ox O2 Delivery O2 Flow Rate FiO2 05/06/25 19:25 98 Room Air* 0 21 05/06/25 19:25 97.6 68 18 122/56 (78) 98 97.6 05/06/25 16:41 193/87 05/06/25 16:00 98.5 62 20 193/87 (122) 100 98.5 Laboratory Tests Test 05/06/25 14:53 White Blood Count 7.7 10^3/uL (4.4-10.8) Medications Medications Dose Ordered Sig/Danna Route Start Time Stop Time Status Last Admin Dose Admin Atorvastatin Calcium 20 mg HS PO 05/06/25 22:00 05/06/25 22:44 20 MG Carbidopa/Levodopa 1 tab TID PO 05/06/25 22:00 05/06/25 22:44 1 TAB Gabapentin 100 mg TID PO 05/06/25 22:00 05/06/25 22:44 100 MG Hydralazine HCl 20 mg ONCE ONCE IV 05/06/25 16:00 05/06/25 16:11 DC 05/06/25 16:41 20 MG Sodium Chloride 10 ml Q8HR IV 05/06/25 22:00 05/06/25 22:16 10 ML Assessment/Plan Assessment/Plan Hypertensive emergency Generalized weakness Plan 1. Admit to telemetry unit 2. Breathing treatment 3. Pain control management 4. Management of fluids and electrolytes 5. Consultation for hospitalist 6. Diagnostic tests head CT 7. DVT prophylaxis-on SCDs 8. Repeat labs CBC, CMP in a.m. 9. Continue with current medical management 10. Treatment plan discussed with patient and RN. Patient verbalized understa nding. Plan discussed with: Patient, Other (RN) My Orders Orders - SUDHIR SEGUNDO DNP Procedure Category Date Status Time Consistent DIET 05/07/25 Transmitted Carb(Ccho)Diabetes Breakfast Atorvastatin (Lipitor) PHA 05/06/25 In Process 22:00 Gabapentin Capsule PHA 05/06/25 In Process (Neurontin Capsule) 22:00 Hydralazine Injection PHA 05/06/25 In Process (Apresoline Inject 20:15 Famotidine Injection PHA 05/07/25 In Process (Pepcid Injection) 10:00 Carbidopa W Levodopa PHA 05/06/25 In Process 10/100mg (Sinemet 1 22:00 Citalopram Tablet PHA 05/07/25 In Process (Celexa Tablet) 10:00 Allergies NAYELI 05/06/25 In Process 20:03 Code Status CODE 05/06/25 Transmitted 20:03 Sodium Chloride Lock PHA 05/06/25 In Process (Saline Lock Ns) 22:00 Oxygen Per Hour RT 05/06/25 Transmitted 20:03 Hydrocodone-Acet PHA 05/06/25 In Process 5/325mg Tab ([place]wick 20:15 Ondansetron Hcl PHA 05/06/25 In Process (Zofran) 20:15 Docusate Sodium PHA 05/06/25 In Process Capsule (Colace 20:15 Fall Risk Precautions NAYELI 05/06/[address] 20:03 Complete Blood Count LAB 05/07/25 Verified 04:00 Comprehensive LAB 05/07/25 Verified Metabolic Panel 04:00 Cardiac DIET 05/07/25 Transmitted Diet-2gna,Lofat,Lochol Breakfast Condition: Serious NAYELI 05/06/25 In Process 20:03 Acetaminophen Tablet PHA 05/06/25 In Process (Tylenol Tablet) 20:15 Maintain Bed Rest NAYELI 05/06/25 In Process 20:03 Sequential NAYELI 05/06/25 In Process Compression Device Furosemide Injection PHA 05/07/25 In Process (Lasix Injection) 10:00 Admit ADMIT 05/06/25 Verified 22:57 Nitroglycerin PHA 05/06/25 Verified Sublingual (Ntrostat 23:00 Morphine Sulfate PHA 05/06/25 Verified Injection 23:00 Problem List: (1) Hypertensive emergency (2) Generalized weakness Date of Service: May 06, 2025 Billing Provider: SUDHIR SEGUNDO DNP Common Visit Codes: [id number] INP/OBS CARE (HIGH) SUDHIR SEGUNDO DNP May 06, 2025 22:58
[2025-05-06] MEDS ORDERED: NITROGLYCERIN 0.4 MG SL TAB SL PRN (23:00)
[2025-05-06] MEDS ORDERED: MORPHINE SULFATE INJ 2 MG/ml SYRG IV PRN (23:00)
[2025-05-07] VITALS (8 sets, daily range): BP systolic 116–183; BP diastolic 34–82; PULSE 59–69; RESP 14–18; TEMP 97.3–98; O2SAT 99–100
[2025-05-07] MEDS: hydrALAZINE HCL 20 MG/ML VL IV PRN (05:21)
[2025-05-07] MEDS: FUROSEMIDE 40 MG/4 ML VIAL IV SCH (09:52)
[2025-05-07] MEDS: FAMOTIDINE (10MG/ML) 2ML VL IV SCH (10:00)
[2025-05-07] MEDS: CITALOPRAM HYDROBR 20 MG TAB PO SCH (10:00)
--- NOTE | 2025-05-07 15:33 | DVHPN2 ---
Subjective The patient is seen and examined at bedside. Sleepy and no complaint. Blood pressure remained very high systolic above 180. Reviewed: Care Plan, H&P, Labs, Medications, Previous Orders, Radiology Changes from previous H/P or p: No Changes Objective Vitals Vital Signs Date Time Temp Pulse Resp B/P (MAP) Pulse Ox O2 Delivery O2 Flow Rate FiO2 05/07/25 13:07 97.5 59 14 145/34 (71) 100 97.5 05/07/25 08:00 Nasal Cannula* 2 28 Intake/Output Intake and Output 05/07/25 07:00 Intake Total 240 ml Balance 240 ml Intake Oral 240 ml # Voids 1 # Bowel Movements 1 General Appearance: Alert, mild distress HEENT: Atraumatic, PERRLA, EOMI, Mucous membr. moist/pink Neck: Supple Lungs: Clear to auscultation, Normal air movement Cardiovascular: Regular rate, Normal S1, Normal S2, No murmurs, Gallops, Rubs Abdomen: Normal bowel sounds, Soft, No tenderness Neuro: Cranial nerves 3-12 NL Psych/Mental Status: Other (Baseline demented) Medications Current Medications Medications Dose Ordered Sig/Danna Route Start Time Stop Time Status Last Admin Dose Admin Atorvastatin Calcium 20 mg HS PO 05/06/25 22:00 05/06/25 22:44 20 MG Gabapentin 100 mg TID PO 05/06/25 22:00 05/07/25 13:22 100 MG Hydralazine HCl 10 mg Q6HP PRN IV 05/06/25 20:15 05/07/25 05:21 10 MG Famotidine 20 mg DAILY IV 05/07/25 10:00 Carbidopa/Levodopa 1 tab TID PO 05/06/25 22:00 05/07/25 13:22 1 TAB Citalopram Hydrobromide 20 mg DAILY PO 05/07/25 10:00 Sodium Chloride 10 ml Q8HR IV 05/06/25 22:00 05/07/25 05:19 10 ML Acetaminophen/ Hydrocodone Bitart 1 tab Q4HP PRN PO 05/06/25 20:15 Ondansetron HCl 4 mg Q4HP PRN IV 05/06/25 20:15 Docusate Sodium 100 mg BIDPRN PRN PO 05/06/25 20:15 Acetaminophen 500 mg Q6HP PRN PO 05/06/25 20:15 Furosemide 40 mg DAILY IV 05/07/25 10:00 05/07/25 09:52 40 MG Nitroglycerin 0.4 mg Q5MINP PRN SL 05/06/25 23:00 Morphine Sulfate 2 mg Q30M PRN IV 05/06/25 23:00 Laboratory Results Laboratory Tests 05/06/25 14:53 Microbiology Microbiology Date/Time Source Procedure Growth Status 05/07/25 05:30 Nose MRSA Screen - Final Methicillin Resistant S.aureus Complete Labs and/or images reviewed: Labs reviewed by me Assessment/Plan Assessment/Plan Hypertensive emergency Generalized weakness Plan: Continuing current management. The patient was found to pocket a pineapple in her mouth. Per nursing staff the patient did pass swallow eval earlier. So I will change her diet to pureed diet with assistance feeding. I will put her on hydralazine 10 mg IV q.6 hours PRN for systolic blood pressure greater than 160. Waiting for family to bring in her home medication to restart. We also wanted to make sure she able to swallow pill without pocket in her mouth. This medical document was created using an electronic medical record system with [employer] direct computerized dictation system. Although this document has been carefully reviewed, there may still be some phonetic and typographical errors. These areas are purely typographical due to imperfections of the software programs, and do not reflect any compromise in the patient's medical care. Plan discussed with: Other (Rn) Date of Service: May 07, 2025 Billing Provider: JESSICA HAMMER MD Common Visit Codes: [id number] INP/OBS CARE(HIGH) JESSICA HAMMER MD May 07, 2025 15:33
--- NOTE | 2025-05-07 19:26 | ECG ---
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
[2025-05-07 20:00] LABS: Hematocrit 29.0 % (36.0-46.0); Hemoglobin 10.0 g/dL (12.2-16.2); Mean Corpuscular Hemoglobin 30.1 pg (28.0-32.0); Mean Corpuscular Volume 87.8 fL (80.0-100.0); Nucleated Red Blood Cells % 0.1 %
[2025-05-07 20:24] LABS: Alkaline Phosphatase 63 U/L (46-116); Anion Gap 7 (5-15); BUN/Creatinine Ratio 33.7 (10.0-20.0); Bilirubin, Total 0.4 mg/dL (0.2-1.0); Carbon Dioxide 30 mmol/L (20-31); Chloride 104 mmol/L (98-107); Potassium 4.1 mmol/L (3.5-5.1); Sodium 141 mmol/L (136-145)
[2025-05-07 20:28] LABS: Alanine Aminotransferase < 9 U/L (7-40); Albumin 2.8 g/dL (3.2-4.8); Blood Urea Nitrogen 33 mg/dL (9-23); Calcium 8.6 mg/dL (8.7-10.4); Glucose 116 mg/dL (74-106); Total Protein 5.7 g/dL (5.7-8.2)
[2025-05-07 20:44] LABS: Hepatitis B Surface Antigen Negative (Negative)
[2025-05-07 21:03] LABS: Hepatitis C Antibody Negative (Negative)
[2025-05-08] VITALS (8 sets, daily range): BP systolic 113–146; BP diastolic 57–67; PULSE 48–66; RESP 16–20; TEMP 97.2–98.4; O2SAT 97–100
[2025-05-08] MEDS: HYDROcodone-ACET 5/325MG TAB PO PRN (02:27)
--- NOTE | 2025-05-08 11:21 | DVHPN2 ---
Subjective The patient is seen and examined at bedside. Sleepy and no complaint. Blood pressure better controlled today Reviewed: Care Plan, H&P, Labs, Medications, Previous Orders, Radiology Changes from previous H/P or p: No Changes Eyes: No Pain, No Vision change, No Conjunctivae inflammation, No Eyelid inflammation, No Other, No Redness ENT: No Ear pain, No Ear discharge, No Nose pain, No Nose discharge, No Nose congestion, No Mouth pain, No Mouth swelling, No Throat pain, No Throat swelling, No Other Cardiovascular: No Chest Pain, No Palpitations, No Orthopnea, No Paroxysmal Noc. Dyspnea, No Edema, No Lt Headedness; Other (Hypertension) Respiratory: No Cough, No Dry, No Shortness of breath, No SOB with excertion, No Wheezing, No Hemoptysis, No Pleuritic Pain, No Sputum, No Other Gastrointestinal: No Nausea, No Vomiting, No Abdominal Pain, No Diarrhea, No Constipation, No Melena, No Hematochezia, No Other Genitourinary: No Dysuria, No Frequency, No Incontinence, No Hematuria, No Retention, No Other Musculoskeletal: No other, No neck pain, No shoulder pain, No arm pain, No back pain, No hand pain, No leg pain, No foot pain Skin: No Rash, No Lesions, No Jaundice, No Bruising, No Other Objective Vitals Vital Signs Date Time Temp Pulse Resp B/P (MAP) Pulse Ox O2 Delivery O2 Flow Rate FiO2 05/08/25 10:00 115/57 05/08/25 09:52 97.2 55 20 100 97.2 05/08/25 08:00 Nasal Cannula* 2 28 Intake/Output Intake and Output 05/08/25 07:00 Intake Total 1248 ml Balance 1248 ml Intake Oral 1248 ml # Voids 1 # Bowel Movements 2 General Appearance: Alert, mild distress HEENT: Atraumatic, PERRLA, EOMI, Mucous membr. moist/pink Neck: Supple Lungs: Clear to auscultation, Normal air movement Cardiovascular: Regular rate, Normal S1, Normal S2, No murmurs, Gallops, Rubs Abdomen: Normal bowel sounds, Soft, No tenderness Neuro: Cranial nerves 3-12 NL Psych/Mental Status: Other (Baseline demented) Medications Current Medications Medications Dose Ordered Sig/Danna Route Start Time Stop Time Status Last Admin Dose Admin Atorvastatin Calcium 20 mg HS PO 05/06/25 22:00 05/07/25 21:43 20 MG Gabapentin 100 mg TID PO 05/06/25 22:00 05/07/25 21:43 100 MG Hydralazine HCl 10 mg Q6HP PRN IV 05/06/25 20:15 05/07/25 05:21 10 MG Famotidine 20 mg DAILY IV 05/07/25 10:00 05/08/25 11:07 20 MG Carbidopa/Levodopa 1 tab TID PO 05/06/25 22:00 05/07/25 21:43 1 TAB Citalopram Hydrobromide 20 mg DAILY PO 05/07/25 10:00 Sodium Chloride 10 ml Q8HR IV 05/06/25 22:00 05/08/25 05:44 10 ML Acetaminophen/ Hydrocodone Bitart 1 tab Q4HP PRN PO 05/06/25 20:15 05/08/25 02:27 1 TAB Ondansetron HCl 4 mg Q4HP PRN IV 05/06/25 20:15 Docusate Sodium 100 mg BIDPRN PRN PO 05/06/25 20:15 Acetaminophen 500 mg Q6HP PRN PO 05/06/25 20:15 Furosemide 40 mg DAILY IV 05/07/25 10:00 05/07/25 09:52 40 MG Nitroglycerin 0.4 mg Q5MINP PRN SL 05/06/25 23:00 Morphine Sulfate 2 mg Q30M PRN IV 05/06/25 23:00 Laboratory Results Laboratory Tests 05/07/25 19:41 Chemistry Test 05/07/25 19:41 Albumin 2.8 g/dL (3.2-4.8) L Calcium Level 8.6 mg/dL (8.7-10.4) L Total Protein 5.7 g/dL (5.7-8.2) LFT Test 05/07/25 19:41 Alanine Aminotransferase (ALT) < 9 U/L (7-40) Alkaline Phosphatase 63 U/L (46-116) Aspartate Amino Transferase (AST) 14 U/L (13-40) Total Bilirubin 0.4 mg/dL (0.2-1.0) Microbiology Microbiology Date/Time Source Procedure Growth Status 05/07/25 05:30 Nose MRSA Screen - Final Methicillin Resistant S.aureus Complete Labs and/or images reviewed: Labs reviewed by me Assessment/Plan Assessment/Plan Hypertensive emergency, an patient now had an episode of hypotension Generalized weakness Plan: Continuing current management. The patient was found to pocket a pineapple in her mouth. Per nursing staff the patient did pass swallow eval earlier. So I will change her diet to pureed diet with assistance feeding. I will put her on hydralazine 10 mg IV q.6 hours PRN for systolic blood pressure greater than 160. Waiting for family to bring in her home medication to restart. We also wanted to make sure she able to swallow pill without pocket in her mouth. 05/08 : The patient daughter and son-in-law at bedside. Discussed with her regarding to the need for pureed food and support why feeding. I will hold Lasix for today. We will continuing to monitor blood pressure. PT eval and treat Per family the patient is bed-bound however still sit up but very minimal because of the wound in the sacral area This medical document was created using an electronic medical record system with [email or web address] direct computerized dictation system. Although this document has been carefully reviewed, there may still be some phonetic and typographical errors. These areas are purely typographical due to imperfections of the software programs, and do not reflect any compromise in the patient's medical care. Plan discussed with: Patient My Orders Orders - JESSICA HAMMER MD Procedure Category Date Status Time Cardiac DIET 05/07/25 Transmitted Diet-2gna,Lofat,Lochol Dinner Date of Service: May 08, 2025 Billing Provider: JESSICA HAMMER MD Common Visit Codes: [id number] INP/OBS CARE(HIGH) JESSICA HAMMER MD May 08, 2025 11:21
[2025-05-08] MEDS: MUPIROCIN 2% OINT 15gm or 22gm FOR MRSA NARES EACHNOSTRI SCH (22:04)
[2025-05-09] VITALS (8 sets, daily range): BP systolic 113–155; BP diastolic 61–84; PULSE 59–67; RESP 16–19; TEMP 97.4–97.8; O2SAT 95–100
[2025-05-09 07:59] LABS: Chloride 104 mmol/L (98-107); Hematocrit 27.9 % (36.0-46.0); Hemoglobin 9.6 g/dL (12.2-16.2); Mean Corpuscular Hemoglobin 30.3 pg (28.0-32.0); Mean Corpuscular Volume 87.8 fL (80.0-100.0); Nucleated Red Blood Cells % 0.1 %; Potassium 4.0 mmol/L (3.5-5.1); Sodium 143 mmol/L (136-145)
[2025-05-09 08:00] LABS: Anion Gap 9 (5-15); Carbon Dioxide 30 mmol/L (20-31)
[2025-05-09 08:05] LABS: BUN/Creatinine Ratio 33.9 (10.0-20.0); Glucose 82 mg/dL (74-106)
[2025-05-09 08:10] LABS: Blood Urea Nitrogen 40 mg/dL (9-23); Calcium 8.5 mg/dL (8.7-10.4)
--- NOTE | 2025-05-09 13:37 | DVH ---
EXAM: XY CHEST PORTABLE Indication: congestion Technique: Single frontal view of the chest was obtained Comparison: XY CHEST PORTABLE on DOS: 05/06/25, XY CHEST XRAY 1 VIEW on DOS: 01/04/25, XY CHEST PORTABLE on DOS: 10/30/24, XY CHEST PORTABLE on DOS: 12/10/23, XR CHEST 1 VIEW on DOS: 11/18/23 FINDINGS: Lines and Tubes: None Lungs: Low lung volumes with bibasilar opacities. Pleura: Trace left pleural effusion. No pneumothorax. Cardiomediastinal contours: Unremarkable Bones: No acute osseous abnormality. IMPRESSION: Low lung volumes with bibasilar opacities.
--- NOTE | 2025-05-09 23:00 | DVHPN2 ---
Subjective The patient is seen and examined at bedside. Sleepy and no complaint. Blood pressure better controlled today Reviewed: Care Plan, H&P, Labs, Medications, Previous Orders, Radiology Changes from previous H/P or p: No Changes Eyes: No Pain, No Vision change, No Conjunctivae inflammation, No Eyelid inflammation, No Other, No Redness ENT: No Ear pain, No Ear discharge, No Nose pain, No Nose discharge, No Nose congestion, No Mouth pain, No Mouth swelling, No Throat pain, No Throat swelling, No Other Cardiovascular: No Chest Pain, No Palpitations, No Orthopnea, No Paroxysmal Noc. Dyspnea, No Edema, No Lt Headedness; Other (Hypertension) Respiratory: No Cough, No Dry, No Shortness of breath, No SOB with excertion, No Wheezing, No Hemoptysis, No Pleuritic Pain, No Sputum, No Other Gastrointestinal: No Nausea, No Vomiting, No Abdominal Pain, No Diarrhea, No Constipation, No Melena, No Hematochezia, No Other Genitourinary: No Dysuria, No Frequency, No Incontinence, No Hematuria, No Retention, No Other Musculoskeletal: No other, No neck pain, No shoulder pain, No arm pain, No back pain, No hand pain, No leg pain, No foot pain Skin: No Rash, No Lesions, No Jaundice, No Bruising, No Other Objective Vitals Vital Signs Date Time Temp Pulse Resp B/P (MAP) Pulse Ox O2 Delivery O2 Flow Rate FiO2 05/09/25 21:00 97.8 67 18 144/72 (96) 95 97.8 05/09/25 20:00 Nasal Cannula* 2 28 Intake/Output Intake and Output 05/09/25 07:00 Intake Total 755 ml Balance 755 ml Intake Oral 755 ml # Bowel Movements 2 General Appearance: Alert, mild distress HEENT: Atraumatic, PERRLA, EOMI, Mucous membr. moist/pink Neck: Supple Lungs: Clear to auscultation, Normal air movement Cardiovascular: Regular rate, Normal S1, Normal S2, No murmurs, Gallops, Rubs Abdomen: Normal bowel sounds, Soft, No tenderness Neuro: Cranial nerves 3-12 NL Psych/Mental Status: Other (Baseline demented) Medications Current Medications Medications Dose Ordered Sig/Danna Route Start Time Stop Time Status Last Admin Dose Admin Atorvastatin Calcium 20 mg HS PO 05/06/25 22:00 05/09/25 22:22 20 MG Gabapentin 100 mg TID PO 05/06/25 22:00 05/09/25 22:22 100 MG Hydralazine HCl 10 mg Q6HP PRN IV 05/06/25 20:15 05/09/25 06:55 10 MG Famotidine 20 mg DAILY IV 05/07/25 10:00 05/09/25 11:49 20 MG Carbidopa/Levodopa 1 tab TID PO 05/06/25 22:00 05/09/25 22:22 1 TAB Citalopram Hydrobromide 20 mg DAILY PO 05/07/25 10:00 05/09/25 11:48 20 MG Sodium Chloride 10 ml Q8HR IV 05/06/25 22:00 05/09/25 22:22 10 ML Acetaminophen/ Hydrocodone Bitart 1 tab Q4HP PRN PO 05/06/25 20:15 05/09/25 11:49 1 TAB Ondansetron HCl 4 mg Q4HP PRN IV 05/06/25 20:15 Docusate Sodium 100 mg BIDPRN PRN PO 05/06/25 20:15 Acetaminophen 500 mg Q6HP PRN PO 05/06/25 20:15 Furosemide 40 mg DAILY IV 05/07/25 10:00 05/09/25 13:00 40 MG Nitroglycerin 0.4 mg Q5MINP PRN SL 05/06/25 23:00 Morphine Sulfate 2 mg Q30M PRN IV 05/06/25 23:00 Mupirocin 1 applic BID EACHNOSTRI 05/08/25 22:00 05/13/25 21:59 05/09/25 22:22 1 APPLIC Laboratory Results Laboratory Tests 05/09/25 05:41 Chemistry Test 05/09/25 05:41 Calcium Level 8.5 mg/dL (8.7-10.4) L Microbiology Microbiology Date/Time Source Procedure Growth Status 05/07/25 05:30 Nose MRSA Screen - Final Methicillin Resistant S.aureus Complete Labs and/or images reviewed: Labs reviewed by me Assessment/Plan Assessment/Plan Hypertensive emergency, an patient now had an episode of hypotension Generalized weakness Patient is wheezing and shortness of breath today. MARTÍNEZ Plan: Continuing current management. The patient was found to pocket a pineapple in her mouth. Per nursing staff the patient did pass swallow eval earlier. So I will change her diet to pureed diet with assistance feeding. I will put her on hydralazine 10 mg IV q.6 hours PRN for systolic blood pressure greater than 160. Waiting for family to bring in her home medication to restart. We also wanted to make sure she able to swallow pill without pocket in her mouth. 05/08 : The patient daughter and son-in-law at bedside. Discussed with her regarding to the need for pureed food and support why feeding. I will hold Lasix for today. We will continuing to monitor blood pressure. PT eval and treat Per family the patient is bed-bound however still sit up but very minimal because of the wound in the sacral area 05/09: Will give lasix 20mg IV daily. CXR. Will monitor kidney function. This medical document was created using an electronic medical record system with [employer] direct computerized dictation system. Although this document has been carefully reviewed, there may still be some phonetic and typographical errors. These areas are purely typographical due to imperfections of the software programs, and do not reflect any compromise in the patient's medical care. Plan discussed with: Patient My Orders Orders - JESSICA HAMMER MD Procedure Category Date Status Time Complete Blood Count LAB 05/10/25 Verified 06:00 Comprehensive LAB 05/10/25 Verified Metabolic Panel 06:00 Chest Portable XY 05/09/25 Resulted 12:29 Cleanse Wound With NAYELI 05/09/25 In Process Wound Clean 14:24 Date of Service: May 09, 2025 Billing Provider: JESSICA HAMMER MD Common Visit Codes: [id number] INP/OBS CARE(HIGH) JESSICA HAMMER MD May 09, 2025 23:00
[2025-05-10] VITALS (7 sets, daily range): BP systolic 108–156; BP diastolic 63–88; PULSE 61–72; RESP 17–18; TEMP 36.6; O2SAT 95–100
[2025-05-10 10:42] LABS: Alkaline Phosphatase 74 U/L (46-116); Anion Gap 8 (5-15); BUN/Creatinine Ratio 29.4 (10.0-20.0); Bilirubin, Total 0.4 mg/dL (0.2-1.0); Carbon Dioxide 28 mmol/L (20-31); Chloride 103 mmol/L (98-107); Glucose 92 mg/dL (74-106); Potassium 4.0 mmol/L (3.5-5.1); Sodium 139 mmol/L (136-145); Total Protein 6.4 g/dL (5.7-8.2)
[2025-05-10 10:43] LABS: Alanine Aminotransferase < 9 U/L (7-40); Albumin 3.2 g/dL (3.2-4.8); Blood Urea Nitrogen 35 mg/dL (9-23); Calcium 8.7 mg/dL (8.7-10.4)
[2025-05-10] MEDS ORDERED: AZIT-185 PO (11:10)
--- NOTE | 2025-05-10 11:13 | DVHDS2 ---
Discharge Summary Date of Admission May 06, 2025 at 22:57 Date of Discharge: May 10, 2025 Admitting Diagnosis Hypertensive emergency, now had an episode of hypotension Generalized weakness Shortness for breath MARTÍNEZ Labs/Diagnostic Data: Laboratory Results Test 05/10/25 10:03 05/09/25 05:41 05/07/25 19:41 05/06/25 19:16 Sodium Level 139 mmol/L (136-145) Potassium Level 4.0 mmol/L (3.5-5.1) Chloride Level 103 mmol/L (98-107) Carbon Dioxide Level 28 mmol/L (20-31) Anion Gap 8 (5-15) Blood Urea Nitrogen 35 mg/dL (9-23) Creatinine 1.19 mg/dL (0.550-1.02) Glomerular Filtration Rate Calc 44 mL/min (>90) BUN/Creatinine Ratio 29.4 (10.0-20.0) Serum Glucose 92 mg/dL (74-106) Calcium Level 8.7 mg/dL (8.7-10.4) Total Bilirubin 0.4 mg/dL (0.2-1.0) Aspartate Amino Transferase (AST) 18 U/L (13-40) Alanine Aminotransferase (ALT) < 9 U/L (7-40) Alkaline Phosphatase 74 U/L (46-116) Total Protein 6.4 g/dL (5.7-8.2) Albumin 3.2 g/dL (3.2-4.8) White Blood Count 8.0 10^3/uL (4.4-10.8) Red Blood Count 3.18 10^6/uL (4.0-5.20) Hemoglobin 9.6 g/dL (12.2-16.2) Hematocrit 27.9 % (36.0-46.0) Mean Corpuscular Volume 87.8 fL (80.0-100.0) Mean Corpuscular Hemoglobin 30.3 pg (28.0-32.0) Mean Corpuscular Hemoglobin Concent 34.5 g/dL (32.0-36.0) Red Cell Distribution Width 14.4 % (11.8-14.3) Platelet Count 202 10^3/uL (140-450) Mean Platelet Volume 8.8 fL (6.9-10.8) Neutrophils (%) (Auto) 69.9 % (37.0-80.0) Lymphocytes (%) (Auto) 21.1 % (10.0-50.0) Monocytes (%) (Auto) 7.2 % (0.0-12.0) Eosinophils (%) (Auto) 1.3 % (0.0-7.0) Basophils (%) (Auto) 0.5 % (0.0-2.0) Neutrophils # (Auto) 5.6 10 ^3/uL (1.6-8.6) Lymphocytes # (Auto) 1.7 10 ^3/uL (0.4-5.4) Monocytes # (Auto) 0.6 10 ^3/uL (0-1.3) Eosinophils # (Auto) 0.1 10 ^3/uL (0-0.8) Basophils # (Auto) 0 10 ^3/uL (0-0.2) Nucleated Red Blood Cells 0.1 % Hepatitis B Surface Antigen Negative (Negative) Hepatitis C Antibody Negative (Negative) Troponin I High Sensitivity 21 ng/L (</=34) Other Laboratory Tests 05/10/25 10:03 05/09/25 05:41 Brief Hx & Hospital Course: This is an 85 years old female with bed-bound and multiple past medical history including congestive heart failure, anxiety, depression, diabetes type 2, hypertension come to emergency department because of elevation of blood pressure. The patient live in an [facility] nursing facility. Staff member car regarding to the patient's change in condition. The patient was weak, wheezing, had episode of elevation of blood pressure above 160 systolic. The patient was transferred to emergency department. Her lab showed WBC of 7.7, hematocrit 10.5 hematocrit 31.5, platelets 360. Her sodium is 144, potassium 4.7, BUN 24, creatinine 0.86. The patient's CT head is negative for acute CVA. Her blood pressure was her 195/85. The patient was given IV hypertensive medication and started having hypotension episode at 80/40. The patient hypotension resolved. The patient had some wheezing and congestion. The patient was given IV Lasix gentle the patient also was given IV antibiotic Rocephin. Today the patient doing better. Less wheezing. More alert awake. I am going to discharge her back to her long-term facility. Activity as tolerated. Diet pureed diet. Physical exam: HEENT: Normocephalic atraumatic pupils equal react to light and accommodation. Extraocular muscles intact, conjunctiva pink, oropharynx moist, no thrush, no exudate. Lymphatic: No lymphadenopathy Cardiovascular exam: S1, S2 was heard. No murmurs, rubs, gallops Lung: Clear on auscultation bilaterally, no wheeze, rale, rhonchi. GI: Abdominal soft, nondistended, nontenderness, positive bowel sounds. Extremity: No crepitus, cyanosis, edema. Pedal pulses present bilateral. Full range of motion. Skin: Normal turgor, no rash. Psych: Alert, oriented x3. Neurology: No focal deficits, cranial nerve II to XII grossly intact. This medical document was created using an electronic medical record system with [employer] direct computerized dictation system. Although this document has been carefully reviewed, there may still be some phonetic and typographical errors. These areas are purely typographical due to imperfections of the software programs, and do not reflect any compromise in the patient's medical care. Condition at Discharge: Stable Final Diagnosis/Problems List Hypertensive emergency, now had an episode of hypotension, resolved Generalized weakness Shortness for breath Congestive heart failure with minimal exacerbation Diabetes type 2 Alzheimer's dementia Anxiety Depression Discharge Disposition: Home Discharge Instruct/Medications Diet: Regular, Cardiac 2g Na,low cholest Diet comment: soft, puree diet Activity: No Restrictions, As Tolerated Follow Up/Referral: pcp 1-2 weeks Medications: see med list Scheduled Azithromycin (Zithromax Tablet), 250 MG PO DAILY Carbidopa-Levodopa (Carbidopa/Levodopa Odt 10-100 mg), 1 TAB PO TID, (Reported) Citalopram Hydrobromide (Citalopram Hydrobromide), 20 MG PO DAILY, (Reported) Docusate Sodium (Colace), 1 CAP PO BID, (Reported) Enalapril Maleate (Enalapril Maleate), 10 MG PO DAILY, (Reported) Famotidine (Famotidine), 20 MG PO DAILY, (Reported) Ferrous Sulfate (Iron), 325 MG PO DAILY Furosemide (Furosemide), 40 MG PO BIDD, (Reported) Gabapentin (Gabapentin), 100 MG PO TID, (Reported) Lactulose (Lactulose), 20 GM PO DAILY, (Reported) Mirtazapine (Mirtazapine Oral Disintegrating Tablet), 15 MG PO QPM, (Reported) Montelukast Sodium (Montelukast Sodium), 1 TAB PO DAILY, (Reported) Mupirocin (Pseudomonas Fluores (Mupirocin), 1 APPLIC EACHNOSTRI BID Pantoprazole Sodium Sesquihydr (Protonix), 40 MG PO BIDAC Potassium Chloride (Klor-Con M20), 20 MEQ PO BID, (Reported) Quetiapine Fumerate (Seroquel), 50 MG PO HS, (Reported) Senna (Senna Lax), 8.6 MG PO QHSP, (Reported) Simvastatin (Simvastatin), 40 MG PO DAILY, (Reported) Sucralfate (Carafate Susp), 10 ML PO QID Yeast (S. Boulardii)(S. Cerevi (Florastor), 250 MG PO DAILY Scheduled PRN Acetaminophen (Acetaminophen), 500 MG PO Q6HPRN PRN for MILD PAIN (1-3 PAIN SCALE), (Reported) Miscellaneous Medications Folic Acid (Folic Acid), 1 MG PO, (Reported) Discontinued Medications Fluconazole (Diflucan), 1 TAB PO DAILY Vancomycin HCl (Vancomycin HCl), 125 MG PO QID Discharge Statement: "Patient was advised to return to the ER or call 911 if any headaches, dizziness, shortness of breath, chest pain, abdominal pain, bleeding, fevers, or worsening of medical condition. Patient was counseled about treatment plan, medications, possible side effects, patientverbalized understanding. All questions were answered to the best of my ability. This discharge took greater then 30 minutes in planning, reviewing documentation, counseling the patient, and discussing with other team members." ASSESSMENT ASSESSMENT Assessment covid PNA Date of Service: May 10, 2025 Billing Provider: JESSICA HAMMER MD Common Visit Codes: 90042-FMV/OBS DISCH DAY >30min JESSICA HAMMER MD May 10, 2025 11:13
[2025-05-10 14:19] LABS: Hematocrit 29.2 % (36.0-46.0); Hemoglobin 10.1 g/dL (12.2-16.2); Mean Corpuscular Hemoglobin 30.2 pg (28.0-32.0); Mean Corpuscular Volume 87.4 fL (80.0-100.0); Nucleated Red Blood Cells % 0.0 %
[2025-05-12] MEDS ORDERED: CEPH250C PO (17:19)
== END 2025-05-10 17:30 | disposition home health service (06) | DRG 177 ==
LOC: ER 13:15 → EDSEX 13:15 → EDBD 13:15 → OVERFLOW 22:57 → TELE-EAST 05-07 02:03
PROVIDERS: ADMIT Internal Medicine; ATTEND Internal Medicine
DX: U07.1 COVID-19 (principal); I50.43 Acute on chronic combined systolic (congestive) and diastolic (congestive) heart failure; J12.82 Pneumonia due to coronavirus disease 2019; N17.0 Acute kidney failure with tubular necrosis; I16.1 Hypertensive emergency; F02.84 Dementia in other diseases classified elsewhere, unspecified severity, with anxiety; F02.83 Dementia in other diseases classified elsewhere, unspecified severity, with mood disturbance; I11.0 Hypertensive heart disease with heart failure; G30.9 Alzheimer's disease, unspecified; E11.9 Type 2 diabetes mellitus without complications; F32.A Depression, unspecified; Z79.899 Other long term (current) drug therapy; Z74.01 Bed confinement status; I95.9 Hypotension, unspecified
CPT/HCPCS: 36415; 70450; 71045; 80048; 80053; 84484; 85025; 86803; 87081; 87340; 93005; 96374; 96375; 97163; 99291; G0378; J3490